=== PATIENT | male | born 1955 | race Caucasian/White ===

== ENCOUNTER → 2020-02-23 13:40 | Outpatient (BNVA) | payer MEDICARE, MEDICAID, SELFPAY | PROVIDERS: PCP Internal Medicine; Referring Provider Internal Medicine; Visit Provider Internal Medicine Gastroenterology | DX: K59.09 Other constipation (principal); I71.4 Abdominal aortic aneurysm, without rupture; I10 Essential (primary) hypertension; Z80.0 Family history of malignant neoplasm of digestive organs | CPT/HCPCS: 99212 ==

== ENCOUNTER 2020-03-01 10:08 | Emergency (ER) | payer MEDICARE, MEDICAID, SELFPAY ==
[2020-03-01 10:27] VITALS: BP 175/92; PULSE 75; RESP 17; TEMP 36.6; O2SAT 99; BMI 26.5
--- NOTE | 2020-03-01 10:40 | ED.URI ---
HPI - URI/Sore Throat General Chief Complaint: Upper Respiratory Symptoms Stated Complaint: fever,headache,sore throat,cough Time Seen by Provider: 03/01/20 10:22 Source: patient Mode of arrival: ambulatory Limitations: no limitations History of Present Illness HPI Narrative: cough and sore throat for 4 days MD elicited complaint: fever, cough and sore throat Onset (ago): day(s) Associated symptoms: fever and chills Related Data Home Medications Medication Instructions Recorded Confirmed allopurinol 300 mg tablet 150 mg PO DAILY 02/23/20 02/23/20 Previous Rx's Medication Instructions Recorded spironolactone 25 1 tab PO DAILY #90 tab 02/27/20 mg-hydrochlorothiazide 25 mg tablet Allergies Allergy/AdvReac Type Severity Reaction Status Date / Time No Known Allergies Allergy Unverified 01/15/20 19:29 [No Known Allergies*] Review of Systems Constitutional: Constitutional: Reports no additional constitutional complaints Eyes: Eyes: Reports no additional eye complaints ENT: Denies dizziness Cardiovascular: Cardiovascular: Reports no additional cardiovascular complaints Respiratory: Respiratory: Reports as per HPI Gastrointestinal: Gastrointestinal: Reports no additional gastrointestinal complaints Musculoskeletal: Musculoskeletal: Reports no additional musculoskeletal complaints Integumentary/Breasts: Skin/Breast: Denies rash Neurologic: Reports system reviewed and no additional complaints, except as documented, Denies dizziness and Denies Sensory deficit (Neuro) Psychiatric: Psychiatric: Denies anxiety PMFSH Past Medical History Medical History Abdominal aortic aneurysm Chronic constipation Family history of colon cancer Gout Hypertension Surgical History History of appendectomy Family History Family History Father No problems noted. Mother No problems noted. Social History Social History (Updated 02/23/20 @ 13:42 by Barb Mayers MA) Alcohol intake: current Alcohol intake frequency: 0-2 drinks per day Smoking Status: Current every day smoker Tobacco Type: Cigar Substance Use Type: Marijuana Advance Directives: No Advance Directives Information Provided: No Physical Exam Vital Signs: Vital Signs: Vital Signs Temp Pulse Resp BP Pulse Ox 03/01/20 10:27 98 F 75 17 175/92 H 99 Body Mass Index 26.5 Const: General: healthy appearing Nutritional Appearance: average body habitus Orientation/consciousness: oriented to person and patient oriented x3 Limitations: no limitations HENMT: Head: Yes normal to inspection Ears: external ears normal General nose exam: Normal external nose present Mouth: Normal oral and palatal mucosa present and oropharynx normal Throat: Yes posterior oropharynx normal Eyes: General: appearance normal, both eyes and all related structures Neck: Other: supple Neck: Yes normal visual inspection Chest: Chest palpation & inspection: normal inspection of the chest Resp: Auscultation: clear to auscultation bilaterally Cardio: Jugular venous distension: no JVD Rate: regular rate Rhythm: regular rhythm Heart sounds: S1 normal heart sound present and S2 normal heart sound present GI: Inspection: Yes normal to inspection Palpation (GI): Soft to palpation, nontender and No hepatosplenomegaly present Auscultation: normal bowel sounds : General: Yes no CVA tenderness Back/Spine/Pelvis: Back: no CVA tenderness Skin: General skin exam: no rashes or lesions noted Neuro: General: oriented to person and patient oriented x3 Cranial nerves: Yes CN's II-XII intact bilaterally Motor exam (neuro): 5/5 motor strength present throughout Sensory Exam: No Sensory deficit (Neuro) Extrem: General: Yes normal to inspection Psych: Appearance: grossly normal Course Course Course Narrative: resting comfortably MDM - URI/Sore Throat MDM Narrative Medical decision making narrative: patient with normal xray, no fever normal oxygen likely with Covid Imaging Data Chest x-ray: Radiologist's impression: no infiltrate Discharge Plan Discharge Clinical Impression: 2019 novel coronavirus disease (COVID-19) Patient Disposition: Home, Self-Care Prescriptions: No Action spironolacton-hydrochlorothiaz 25-25 mg tablet 1 tab PO DAILY Qty: 90 RF: 8 allopurinol 300 mg tablet 150 mg PO DAILY RF: 0 Referrals: Aldo Browning MD [Primary Care Provider] - 2 days
--- NOTE | 2020-03-01 11:06 | XR_ITS ---
EXAMINATION: XR CHEST CLINICAL INFORMATION: Cough and fever. COMPARISON: None TECHNIQUE: Frontal view of the chest was obtained. FINDINGS: The lungs are well-expanded with with no acute process seen. The heart size and pulmonary vascularity is normal. No gross bony abnormality seen. XR/XR chest 1V IMPRESSION: Unremarkable chest exam.
== END 2020-03-01 12:25 | disposition home or self-care (01) ==
PROVIDERS: Emergency Provider Emergency Medicine; PCP Internal Medicine
DX: Z03.818 Encounter for observation for suspected exposure to other biological agents ruled out (principal); I10 Essential (primary) hypertension; Z79.899 Other long term (current) drug therapy; F12.90 Cannabis use, unspecified, uncomplicated; F17.200 Nicotine dependence, unspecified, uncomplicated; Z71.6 Tobacco abuse counseling
CPT/HCPCS: 71045; 99282; 99283; U0003

== ENCOUNTER 2020-05-18 11:31 | Inpatient (IN) | payer MEDICARE, MEDICAID, SELFPAY ==
[2020-05-18] VITALS (12 sets, daily range): BP systolic 102–190; BP diastolic 65–113; PULSE 69–155; RESP 16–22; TEMP 36.5–36.8; O2SAT 95–98; BMI 27.3
--- NOTE | 2020-05-18 11:35 | ED_ITS ---
HPI - General Adult General Chief complaint: Altered Mental Status <Trang Ely NP - Last Filed: 05/18/20 11:52> Stated complaint: hbp <Trang Ely NP - Last Filed: 05/18/20 11:52> Time Seen by Provider: 05/18/20 11:34 <Trang Ely NP - Last Filed: 05/18/20 11:52> Source: patient <Obi Zapata MD - Last Filed: 05/18/20 16:12> Mode of arrival: ambulatory <Obi Zapata MD - Last Filed: 05/18/20 16:12> Limitations: no limitations <Obi Zapata MD - Last Filed: 05/18/20 16:12> History of Present Illness HPI narrative: Patient is altered mental status, weakness. Found laying on the floor in triage. Patient states that he has had a tactile temperature at home <Obi Zapata MD - Last Filed: 05/18/20 16:12> Onset (ago): day(s) <Obi Zapata MD - Last Filed: 05/18/20 16:12> Severity: moderate <Obi Zapata MD - Last Filed: 05/18/20 16:12> Associated symptoms: confusion and weakness <Obi Zapata MD - Last Filed: 05/18/20 16:12> Related Data Home medications: Home Medications Medication Instructions Recorded Confirmed allopurinol 300 mg tablet 150 mg PO DAILY 02/23/20 02/23/20 Previous Rx's Medication Instructions Recorded spironolactone 25 1 tab PO DAILY #90 tab 02/27/20 mg-hydrochlorothiazide 25 mg tablet <Trang Ely NP - Last Filed: 05/18/20 11:52> Allergies/adverse reactions: Allergies Allergy/AdvReac Type Severity Reaction Status Date / Time No Known Allergies Allergy Verified 03/22/20 14:49 [No Known Allergies*] <Trang Ely NP - Last Filed: 05/18/20 11:52> Review of Systems Constitutional: Constitutional: Reports no additional constitutional complaints <Obi Zapata MD - Last Filed: 05/18/20 16:12> Eyes: Eyes: Reports no additional eye complaints <Obi Zapata MD - Last Filed: 05/18/20 16:12> ENT: Denies dizziness <Obi Zapata MD - Last Filed: 05/18/20 16:12> Cardiovascular: Cardiovascular: Reports no additional cardiovascular complaints <Obi Zapata MD - Last Filed: 05/18/20 16:12> Respiratory: Respiratory: Reports as per HPI <Obi Zapata MD - Last Filed: 05/18/20 16:12> Gastrointestinal: Gastrointestinal: Reports no additional gastrointestinal complaints <Obi Zapata MD - Last Filed: 05/18/20 16:12> Musculoskeletal: Musculoskeletal: Reports no additional musculoskeletal complaints <Obi Zapata MD - Last Filed: 05/18/20 16:12> Integumentary/Breasts: Skin/Breast: Denies rash <Obi Zapata MD - Last Filed: 05/18/20 16:12> Neurologic: Reports system reviewed and no additional complaints, except as documented, Denies dizziness and Denies Sensory deficit (Neuro) <Obi Zapata MD - Last Filed: 05/18/20 16:12> Psychiatric: Psychiatric: Denies anxiety <Obi Zapata MD - Last Filed: 05/18/20 16:12> PMFSH Past Medical History Medical History: Medical History Abdominal aortic aneurysm Chronic constipation Family history of colon cancer Gout Hypertension <Trang Ely NP - Last Filed: 05/18/20 11:52> Surgical History: Surgical History History of appendectomy <Trang Ely NP - Last Filed: 05/18/20 11:52> Family History Family History: Family History Father No problems noted. Mother No problems noted. <Trang Ely NP - Last Filed: 05/18/20 11:52> Social History Social History: Social History Alcohol intake: current Alcohol intake frequency: 0-2 drinks per day Smoking Status: Current every day smoker Tobacco Type: Cigar Cigarettes Per Day: 20 Substance Use Type: Marijuana Advance Directives: No Advance Directives Information Provided: Yes <Trang Ely NP - Last Filed: 05/18/20 11:52> Physical Exam 2 Vital Signs: Vital Signs: Last Vital Signs Temp 97.7 F 05/18/20 12:48 Pulse 108 H 05/18/20 14:31 Resp 18 05/18/20 13:51 BP 190/113 H 05/18/20 14:31 Pulse Ox 96 05/18/20 13:51 Body Mass Index 27.3 <Trang Ely NP - Last Filed: 05/18/20 11:52> Vital Signs: Last Vital Signs Temp 97.7 F 05/18/20 12:48 Pulse 108 H 05/18/20 14:31 Resp 18 05/18/20 13:51 BP 190/113 H 05/18/20 14:31 Pulse Ox 96 05/18/20 13:51 Body Mass Index 27.3 <Obi Zapata MD - Last Filed: 05/18/20 16:12> Const: Other: Ill appearing, weak <Obi Zapata MD - Last Filed: 05/18/20 16:12> Nutritional Appearance: average body habitus <Obi Zapata MD - Last Filed: 05/18/20 16:12> Orientation/consciousness: oriented to person <Obi Zapata MD - Last Filed: 05/18/20 16:12> Limitations: altered mental status <Obi Zapata MD - Last Filed: 05/18/20 16:12> HENMT: Head: Yes normal to inspection <Obi Zapata MD - Last Filed: 05/18/20 16:12> Ears: external ears normal <Obi Zapata MD - Last Filed: 05/18/20 16:12> General nose exam: Normal external nose present <Obi Zapata MD - Last Filed: 05/18/20 16:12> Mouth: Normal oral and palatal mucosa present and oropharynx normal <Obi Zapata MD - Last Filed: 05/18/20 16:12> Throat: Yes posterior oropharynx normal <Obi Zapata MD - Last Filed: 05/18/20 16:12> Eyes: General: appearance normal, both eyes and all related structures <Obi Zapata MD - Last Filed: 05/18/20 16:12> Neck: Other: supple <Obi Zapata MD - Last Filed: 05/18/20 16:12> Neck: Yes normal visual inspection <Obi Zapata MD - Last Filed: 05/18/20 16:12> Chest: Chest palpation & inspection: normal inspection of the chest <bOi Zapata MD - Last Filed: 05/18/20 16:12> Resp: Auscultation: clear to auscultation bilaterally <Obi Zapata MD - Last Filed: 05/18/20 16:12> Cardio: Jugular venous distension: no JVD <Obi Zapata MD - Last Filed: 05/18/20 16:12> Rate: regular rate <Obi Zapata MD - Last Filed: 05/18/20 16:12> Rhythm: regular rhythm <Obi Zapata MD - Last Filed: 05/18/20 16:12> Heart sounds: S1 normal heart sound present and S2 normal heart sound present <Obi Zapata MD - Last Filed: 05/18/20 16:12> GI: Inspection: Yes normal to inspection <Obi Zapata MD - Last Filed: 05/18/20 16:12> Palpation (GI): Soft to palpation, nontender and No hepatosplenomegaly present <Obi Zapata MD - Last Filed: 05/18/20 16:12> Auscultation: normal bowel sounds <Obi Zapata MD - Last Filed: 05/18/20 16:12> : General: Yes no CVA tenderness <Obi Zapata MD - Last Filed: 05/18/20 16:12> Back/Spine/Pelvis: Back: no CVA tenderness <Obi Zapata MD - Last Filed: 05/18/20 16:12> Skin: General skin exam: no rashes or lesions noted <Obi Zapata MD - Last Filed: 05/18/20 16:12> Neuro: General: oriented to person <Obi Zapata MD - Last Filed: 05/18/20 16:12> Cranial nerves: Yes CN's II-XII intact bilaterally <Obi Zapata MD - Last Filed: 05/18/20 16:12> Motor exam (neuro): 5/5 motor strength present throughout <Obi Zapata MD - Last Filed: 05/18/20 16:12> Sensory Exam: No Sensory deficit (Neuro) <Obi Zapata MD - Last Filed: 05/18/20 16:12> Extrem: General: Yes normal to inspection <Obi Zapata MD - Last Filed: 05/18/20 16:12> Psych: Appearance: grossly normal <Obi Zapata MD - Last Filed: 05/18/20 16:12> NIH Stroke Scale Level of Consciousness: Alert <Obi Zapata MD - Last Filed: 05/18/20 16:12> Level of Consciousness Questions: Answers neither question correctly <Obi Zapata MD - Last Filed: 04/30 01/18 16:12> Level of Consciousness Commands: Performs both tasks correctly <Obi Zapata MD - Last Filed: 05/18/20 16:12> Best Gaze: Normal <Obi Zapata MD - Last Filed: 05/18/20 16:12> Visual: Partial hemianopia <Obi Zapata MD - Last Filed: 05/18/20 16:12> Facial Palsy: Normal <Obi Zapata MD - Last Filed: 05/18/20 16:12> Motor Arm (Right): No drift <Obi Zapata MD - Last Filed: 05/18/20 16:12> Motor Arm (Left): No drift <Obi Zapata MD - Last Filed: 05/18/20 16:12> Motor Leg (Right): No drift <Obi Zapata MD - Last Filed: 05/18/20 16:12> Motor Leg (Left): No drift <Obi Zapata MD - Last Filed: 05/18/20 16:12> Limb Ataxia: Absent <Obi Zapata MD - Last Filed: 05/18/20 16:12> Sensory: Normal <Obi Zapata MD - Last Filed: 05/18/20 16:12> Best Language: No aphasia <Obi Zapata MD - Last Filed: 05/18/20 16:12> Dysarthia: Normal <Obi Zapata MD - Last Filed: 05/18/20 16:12> Extinction and Inattention: Visual, tactile, auditory, spatial, or personal inattention <Obi nascimento MD - Last Filed: 05/18/20 16:12> Score: 4 <Obi Zapata MD - Last Filed: 05/18/20 16:12> Course Course Course Narrative: 1130-65 yo male here with JACOME, feeling lightheaded and confused with waking this morning. Hasn't felt well for a few days. very concerned as patient is confused today. Difficult to examine patient as he is very agitated, not cooperative. Charge nurse made aware of patient to bring patient to main ER for assessment. <Trang Ely NP - Last Filed: 05/18/20 11:52> Will obtain CT angio, stroke likely happened over past few days will start cardizem drip as well <Obi Zapata MD - Last Filed: 05/18/20 16:12> Reevaluation(s) Reevaluation #1: patient with posterior infarction with P2P3 clot, afib controlled on cardizem will admit <Obi Zapata MD - Last Filed: 05/18/20 16:12> Time: 16:08 <Obi Zapata MD - Last Filed: 05/18/20 16:12> Medical Decision Making MDM Narrative Medical decision making narrative: Atrial fibrillation with altered mental status, will head CT to rule out bleed, work up for infection <Obi Zapata MD - Last Filed: 05/18/20 16:12> Lab Data Result diagrams: : 05/18/20 12:46 05/18/20 12:46 <Trang Ely NP - Last Filed: 05/18/20 11:52> Labs: Lab Results 05/18/20 05/18/20 05/18/20 Range/Units 12:46 12:46 12:46 WBC 7.6 (4.8-10.8) X10*3/uL RBC 6.30 H (4.60-5.80) X10*6/uL Hgb 18.8 H (14.0-18.0) g/dl Hct 53.6 H (42-52) % MCV 85.1 (80-98) fL MCH 29.8 (27.0-33.0) pg MCHC 35.1 (31.0-36.0) g/dl RDW 13.3 (11.0-16.0) % Plt Count 220 (160-400) X10*3/uL MPV 10.8 (9.4-12.4) fL Immature Gran % (Auto) 0.1 (0.0-0.4) % Neut % (Auto) 53.6 (45-73) % Lymph % (Auto) 33.3 (20-40) % Duval % (Auto) 11.9 H (2-11) % Eos % (Auto) 0.4 (0-4) % Baso % (Auto) 0.7 (0-2) % Lymph # (Auto) 2.5 (1.2-4.9) X10*3/uL Duval # (Auto) 0.9 (0.1-1.2) X10*3/uL Eos # (Auto) 0.0 (0.0-0.4) X10*3/uL Baso # (Auto) 0.1 (0.0-0.2) X10*3/uL Abs Immat Gran (auto) 0.01 (0.00-0.03) X10*3/uL Absolute Neuts (auto) 4.1 (2.0-8.3) X10*3/uL Absolute Nucleated RBC 0.000 (0.0-0.012) X10*3/uL Nucleated RBC % (auto) 0.0 (0.0-0.2) /100WBC Sodium 138 (135-145) mmol/L Potassium 3.5 (3.3-5.1) mmol/l Chloride 97 (96-108) mmol/L Carbon Dioxide 24 (22-29) mmol/L Anion Gap 21 H (12-20) BUN 23 H (9-16) mg/dL Creatinine 0.91 (0.5-1.4) mg/dL Estim Creat Clear Calc 76.2 Estimated GFR > 60 Random Glucose 126 H (60-115) mg/dL Calcium 9.8 (8.4-10.2) mg/dL Total Bilirubin 0.9 (0.0-1.0) mg/dL Direct Bilirubin 0.5 (0.0-0.5) mg/dL AST 56 H (5-37) U/L ALT 81 H (0-40) U/L Alkaline Phosphatase 76 (39-117) U/L Troponin I High Sens 40.9 H (<3.5-35.0) ng/L Total Protein 8.3 H (6.5-8.0) g/dL Albumin 4.5 (3.5-5.0) g/dL Urine Color Urine Appearance Urine pH (5.0-8.0) Ur Specific Hutchins (1.005-1.025) Urine Protein (NEG-TRACE) MG/DL Urine Glucose (UA) (NEG) MG/DL Urine Ketones (NEG) MG/DL Urine Blood (NEG) Urine Nitrite (NEG) Ur Leukocyte Esterase (NEG) Urine RBC (0) /HPF Urine WBC (0-4) /HPF Ur Squamous Epith Cells /LPF Urine Bacteria /LPF Urine Mucus /LPF COVID-19 (MILLICENT) (Negative) COVID-19 Clin Com 05/18/20 05/18/20 Range/Units 12:52 14:34 WBC (4.8-10.8) X10*3/uL RBC (4.60-5.80) X10*6/uL Hgb (14.0-18.0) g/dl Hct (42-52) % MCV (80-98) fL MCH (27.0-33.0) pg MCHC (31.0-36.0) g/dl RDW (11.0-16.0) % Plt Count (160-400) X10*3/uL MPV (9.4-12.4) fL Immature Gran % (Auto) (0.0-0.4) % Neut % (Auto) (45-73) % Lymph % (Auto) (20-40) % Duval % (Auto) (2-11) % Eos % (Auto) (0-4) % Baso % (Auto) (0-2) % Lymph # (Auto) (1.2-4.9) X10*3/uL Duval # (Auto) (0.1-1.2) X10*3/uL Eos # (Auto) (0.0-0.4) X10*3/uL Baso # (Auto) (0.0-0.2) X10*3/uL Abs Immat Gran (auto) (0.00-0.03) X10*3/uL Absolute Neuts (auto) (2.0-8.3) X10*3/uL Absolute Nucleated RBC (0.0-0.012) X10*3/uL Nucleated RBC % (auto) (0.0-0.2) /100WBC Sodium (135-145) mmol/L Potassium (3.3-5.1) mmol/l Chloride (96-108) mmol/L Carbon Dioxide (22-29) mmol/L Anion Gap (12-20) BUN (9-16) mg/dL Creatinine (0.5-1.4) mg/dL Estim Creat Clear Calc Estimated GFR Random Glucose (60-115) mg/dL Calcium (8.4-10.2) mg/dL Total Bilirubin (0.0-1.0) mg/dL Direct Bilirubin (0.0-0.5) mg/dL AST (5-37) U/L ALT (0-40) U/L Alkaline Phosphatase (39-117) U/L Troponin I High Sens (<3.5-35.0) ng/L Total Protein (6.5-8.0) g/dL Albumin (3.5-5.0) g/dL Urine Color YELLOW Urine Appearance CLEAR Urine pH 6.5 (5.0-8.0) Ur Specific Hutchins 1.010 (1.005-1.025) Urine Protein 1+ H (NEG-TRACE) MG/DL Urine Glucose (UA) NEG (NEG) MG/DL Urine Ketones NEG (NEG) MG/DL Urine Blood NEG (NEG) Urine Nitrite NEG (NEG) Ur Leukocyte Esterase NEG (NEG) Urine RBC 1-4 (0) /HPF Urine WBC 0-2 (0-4) /HPF Ur Squamous Epith Cells TRACE /LPF Urine Bacteria NONE /LPF Urine Mucus TRACE /LPF COVID-19 (MILLICENT) Negative (Negative) COVID-19 Clin Com See Note <Trang Ely NP - Last Filed: 05/18/20 11:52> Lab Results 05/18/20 05/18/20 05/18/20 Range/Units 12:46 12:46 12:46 WBC 7.6 (4.8-10.8) X10*3/uL RBC 6.30 H (4.60-5.80) X10*6/uL Hgb 18.8 H (14.0-18.0) g/dl Hct 53.6 H (42-52) % MCV 85.1 (80-98) fL MCH 29.8 (27.0-33.0) pg MCHC 35.1 (31.0-36.0) g/dl RDW 13.3 (11.0-16.0) % Plt Count 220 (160-400) X10*3/uL MPV 10.8 (9.4-12.4) fL Immature Gran % (Auto) 0.1 (0.0-0.4) % Neut % (Auto) 53.6 (45-73) % Lymph % (Auto) 33.3 (20-40) % Duval % (Auto) 11.9 H (2-11) % Eos % (Auto) 0.4 (0-4) % Baso % (Auto) 0.7 (0-2) % Lymph # (Auto) 2.5 (1.2-4.9) X10*3/uL Duval # (Auto) 0.9 (0.1-1.2) X10*3/uL Eos # (Auto) 0.0 (0.0-0.4) X10*3/uL Baso # (Auto) 0.1 (0.0-0.2) X10*3/uL Abs Immat Gran (auto) 0.01 (0.00-0.03) X10*3/uL Absolute Neuts (auto) 4.1 (2.0-8.3) X10*3/uL Absolute Nucleated RBC 0.000 (0.0-0.012) X10*3/uL Nucleated RBC % (auto) 0.0 (0.0-0.2) /100WBC Sodium 138 (135-145) mmol/L Potassium 3.5 (3.3-5.1) mmol/l Chloride 97 (96-108) mmol/L Carbon Dioxide 24 (22-29) mmol/L Anion Gap 21 H (12-20) BUN 23 H (9-16) mg/dL Creatinine 0.91 (0.5-1.4) mg/dL Estim Creat Clear Calc 76.2 Estimated GFR > 60 Random Glucose 126 H (60-115) mg/dL Calcium 9.8 (8.4-10.2) mg/dL Total Bilirubin 0.9 (0.0-1.0) mg/dL Direct Bilirubin 0.5 (0.0-0.5) mg/dL AST 56 H (5-37) U/L ALT 81 H (0-40) U/L Alkaline Phosphatase 76 (39-117) U/L Troponin I High Sens 40.9 H (<3.5-35.0) ng/L Total Protein 8.3 H (6.5-8.0) g/dL Albumin 4.5 (3.5-5.0) g/dL Urine Color Urine Appearance Urine pH (5.0-8.0) Ur Specific Hutchins (1.005-1.025) Urine Protein (NEG-TRACE) MG/DL Urine Glucose (UA) (NEG) MG/DL Urine Ketones (NEG) MG/DL Urine Blood (NEG) Urine Nitrite (NEG) Ur Leukocyte Esterase (NEG) Urine RBC (0) /HPF Urine WBC (0-4) /HPF Ur Squamous Epith Cells /LPF Urine Bacteria /LPF Urine Mucus /LPF COVID-19 (MILLICENT) (Negative) COVID-19 Clin Com 05/18/20 05/18/20 Range/Units 12:52 14:34 WBC (4.8-10.8) X10*3/uL RBC (4.60-5.80) X10*6/uL Hgb (14.0-18.0) g/dl Hct (42-52) % MCV (80-98) fL MCH (27.0-33.0) pg MCHC (31.0-36.0) g/dl RDW (11.0-16.0) % Plt Count (160-400) X10*3/uL MPV (9.4-12.4) fL Immature Gran % (Auto) (0.0-0.4) % Neut % (Auto) (45-73) % Lymph % (Auto) (20-40) % Duval % (Auto) (2-11) % Eos % (Auto) (0-4) % Baso % (Auto) (0-2) % Lymph # (Auto) (1.2-4.9) X10*3/uL Duval # (Auto) (0.1-1.2) X10*3/uL Eos # (Auto) (0.0-0.4) X10*3/uL Baso # (Auto) (0.0-0.2) X10*3/uL Abs Immat Gran (auto) (0.00-0.03) X10*3/uL Absolute Neuts (auto) (2.0-8.3) X10*3/uL Absolute Nucleated RBC (0.0-0.012) X10*3/uL Nucleated RBC % (auto) (0.0-0.2) /100WBC Sodium (135-145) mmol/L Potassium (3.3-5.1) mmol/l Chloride (96-108) mmol/L Carbon Dioxide (22-29) mmol/L Anion Gap (12-20) BUN (9-16) mg/dL Creatinine (0.5-1.4) mg/dL Estim Creat Clear Calc Estimated GFR Random Glucose (60-115) mg/dL Calcium (8.4-10.2) mg/dL Total Bilirubin (0.0-1.0) mg/dL Direct Bilirubin (0.0-0.5) mg/dL AST (5-37) U/L ALT (0-40) U/L Alkaline Phosphatase (39-117) U/L Troponin I High Sens (<3.5-35.0) ng/L Total Protein (6.5-8.0) g/dL Albumin (3.5-5.0) g/dL Urine Color YELLOW Urine Appearance CLEAR Urine pH 6.5 (5.0-8.0) Ur Specific Hutchins 1.010 (1.005-1.025) Urine Protein 1+ H (NEG-TRACE) MG/DL Urine Glucose (UA) NEG (NEG) MG/DL Urine Ketones NEG (NEG) MG/DL Urine Blood NEG (NEG) Urine Nitrite NEG (NEG) Ur Leukocyte Esterase NEG (NEG) Urine RBC 1-4 (0) /HPF Urine WBC 0-2 (0-4) /HPF Ur Squamous Epith Cells TRACE /LPF Urine Bacteria NONE /LPF Urine Mucus TRACE /LPF COVID-19 (MILLICENT) Negative (Negative) COVID-19 Clin Com See Note <Obi Zapata MD - Last Filed: 05/18/20 16:12> Imaging Data Chest x-ray: Radiologist's impression: no infiltrate <Obi Zapata MD - Last Filed: 05/18/20 16:12> brain CTA: Radiologist's impression: P2/P3 distal obstruction involving area of infarction <Obi Zapata MD - Last Filed: 05/18/20 16:12> Critical Care Time Critical Care Time Attestation: I spent 40 minutes of critical care, with interventions, assessments, speaking to patient, consultants, and family. <Obi Zapata MD - Last Filed: 05/18/20 16:12> Discharge Plan Discharge Clinical Impression: Stroke Qualifiers: CVA mechanism: embolism Precerebral and cerebral artery: posterior cerebral artery Laterality of affected vessel: unspecified Qualified Code(s): I63.439 - Cerebral infarction due to embolism of unspecified posterior cerebral artery Atrial fibrillation Qualifiers: Atrial fibrillation type: paroxysmal Qualified Code(s): I48.0 - Paroxysmal atrial fibrillation <Trang Ely NP - Last Filed: 05/18/20 11:52> Patient Disposition: Admitted As Inpatient <Trang Ely NP - Last Filed: 05/18/20 11:52>
--- NOTE | 2020-05-18 12:43 | ECG_ITS ---
Test Reason : AMS Blood Pressure : / mmHG Vent. Rate : 142 BPM Atrial Rate : 142 BPM P-R Int : 100 ms QRS Dur : 098 ms QT Int : 324 ms P-R-T Axes : 042 -02 037 degrees QTc Int : 498 ms Sinus tachycardia with short [place] with Premature supraventricular complexes Left ventricular hypertrophy with repolarization abnormality Abnormal ECG When compared with ECG of 02-APR-2019 10:20, Premature supraventricular complexes are now Present Vent. rate has increased BY [address] now depressed in Inferior leads ST now depressed in Anterior leads Referred By: Obi Zapata Electronically Signed By:ANDERSON VILLA
--- NOTE | 2020-05-18 12:44 | XR_ITS ---
EXAMINATION: XR CHEST CLINICAL INFORMATION: Weakness COMPARISON: Chest radiographs 03/01/2020, 09/03/2017 TECHNIQUE: Portable upright AP view of the chest was obtained. FINDINGS: The lungs are mostly clear with no airspace consolidation or definite groundglass opacity. The vascularity is normal. The heart is within normal size. The costophrenic sulci are clear. The hilar and mediastinal contours and bony structures are unremarkable. XR/XR chest 1V IMPRESSION: Unremarkable examination.
--- NOTE | 2020-05-18 12:45 | CT_ITS ---
EXAMINATION: CT HEAD WITHOUT CONTRAST CLINICAL INFORMATION: Altered mental status change COMPARISON: Previous head CT August 2017 TECHNIQUE: Contiguous axial imaging was performed from the skull base to vertex without intravenous administration of contrast. This CT examination was performed using dose optimization techniques as appropriate, variously including the following: *Automated exposure control *Adjustment of mA and/or kV according to patient size (this includes techniques or standardized protocols for targeted exams where dose is matched to indication/reason for exam; i.e. extremities or head) *Use of iterative reconstruction technique DLP: 823 mGy-cm FINDINGS: There is no evidence of an extra-axial collection. There is no evidence of intra-axial or extra-axial hemorrhage. The ventricles and extra-axial CSF spaces are appropriate. There is a large left occipital infarct that appears subacute to old. This is new in the interval from 2018 exam. This measures approximately 2 x 7 m. There are old bilateral basal ganglia lacunar infarcts that appear unchanged. There is nonspecific periventricular white matter disease. There is a nodule in the left face/cheek is deep to the skin. This measures 1 x 1.4 cm and is incompletely visualized. This is not included in the iixec-ox-ebna on prior exam cannot be compared. Review at bone windows is unremarkable. No skull fracture is seen. Visualized paranasal masses, mastoid air cells and middle ears are clear. CT/CT head/brain wo con IMPRESSION: Large left occipital infarct that appears subacute to old. This is new in the interval from 2018 exam. Generalized atrophy, nonspecific periventricular white matter disease and old bilateral basal ganglia lacunar infarct similar to previous exam. Partially visualized 1 x 1.4 cm soft tissue nodule in the left cheek just deep to the skin.
[2020-05-18] MEDS: dilTIAZem HCL 50 MG/10 ML VIAL 10 MG IVPUSH ×2 (12:49→13:47)
[2020-05-18] MEDS: 0.9 % Sodium Chloride 1,000 ML 999 ML IVCONT ×2 (12:49→13:46)
[2020-05-18 12:55] LABS: MANUAL DIFF FLAG NO
[2020-05-18 12:57] LABS: Basophils Absolute Auto 0.1 X10*3/uL (0.0-0.2); Basophils Percent Auto 0.7 % (0-2); Eosinophils Percent Auto 0.4 % (0-4); Hematocrit 53.6 % (42-52); Hemoglobin 18.8 g/dl (14.0-18.0); Imm Gran Abs Auto 0.01 X10*3/uL (0.00-0.03); Imm Gran Pct Auto 0.1 % (0.0-0.4); Lymphocytes Absolute Auto 2.5 X10*3/uL (1.2-4.9); Lymphocytes Percent Auto 33.3 % (20-40); Mean Corpuscular HGB Conc 35.1 g/dl (31.0-36.0); Mean Corpuscular Hemoglobin 29.8 pg (27.0-33.0); Mean Corpuscular Volume 85.1 fL (80-98); Mean Platelet Volume 10.8 fL (9.4-12.4); Monocytes Absolute Auto 0.9 X10*3/uL (0.1-1.2); Monocytes Percent Auto 11.9 % (2-11); Neutrophils Absolute Auto 4.1 X10*3/uL (2.0-8.3); Neutrophils Percent Auto 53.6 % (45-73); Platelet Count 220 X10*3/uL (160-400); Red Cell Distribution Width 13.3 % (11.0-16.0); White Blood Count 7.6 X10*3/uL (4.8-10.8)
[2020-05-18 13:12] LABS: COVID-19 Test Negative (Negative)
[2020-05-18 13:25] LABS: Alanine Aminotransferase 81 U/L (0-40); Albumin Level 4.5 g/dL (3.5-5.0); Alkaline Phosphatase 76 U/L (39-117); Anion Gap 21 (12-20); Aspartate Amino Transferase 56 U/L (5-37); Bilirubin Direct 0.5 mg/dL (0.0-0.5); Bilirubin Total 0.9 mg/dL (0.0-1.0); Blood Urea Nitrogen 23 mg/dL (9-16); Calcium 9.8 mg/dL (8.4-10.2); Carbon Dioxide 24 mmol/L (22-29); Chloride 97 mmol/L (96-108); Creatinine Clr Calc Pharmacy 76.2; Estimated Glomerular Filt Rate > 60; Glucose Random 126 mg/dL (60-115); Potassium 3.5 mmol/l (3.3-5.1); Sodium 138 mmol/L (135-145); Total Protein 8.3 g/dL (6.5-8.0)
[2020-05-18 13:32] LABS: Troponin-I High Sensitivity 40.9 ng/L (<3.5-35.0)
--- NOTE | 2020-05-18 13:35 | ECG_ITS ---
Test Reason : CP Blood Pressure : / mmHG Vent. Rate : 089 BPM Atrial Rate : 089 BPM P-R Int : 170 ms QRS Dur : 116 ms QT Int : 394 ms P-R-T Axes : 006 036 244 degrees QTc Int : 479 ms Normal sinus rhythm Premature ventricular complexes Left ventricular hypertrophy with QRS widening and repolarization abnormality Abnormal ECG When compared with ECG of 18-MAY-2020 12:36, Rate has decreased Referred By: Obi Zapata Electronically Signed By:ANDERSON VILLA
--- NOTE | 2020-05-18 13:35 | CT_ITS ---
EXAMINATION: CT ANGIOGRAM HEAD CT ANGIOGRAM NECK CLINICAL INFORMATION: Subacute occipital stroke. COMPARISON: CT head from 05/18/2020. TECHNIQUE: Initial noncontrast greenhouse staff imaging of the head and neck was performed. Comparison is made with noncontrast head CT from earlier today. Test bolus sequences followed by intravenous administration 70 mL of Omnipaque 350. Helical imaging was performed in the axial plane from the aortic arch to the skull vertex. Delayed postcontrast imaging of the head was also performed. The data was processed at the computer engineering technologist's workstation for generation of MIP sequences. Angled MIPs and volume rendered reformatted images were also generated at an offline 3D workstation. Stenoses are assessed in accordance with NASCET criteria unless otherwise indicated. DLP: 1733 mGy-cm This CT examination was performed using dose optimization techniques as appropriate, variously including the following: *Automated exposure control. *Adjustment of mA and/or kV according to patient size (this includes techniques or standardized protocols for targeted exams where dose is matched to indication/reason for exam; i.e. extremities or head). *Use of iterative reconstruction technique. FINDINGS: CT Head: Redemonstrated hypoattenuation within the parasagittal left occipital lobe and posterior left mesial temporal lobe. No evidence of hemorrhagic conversion. Associated effacement of the regional sulci. Scattered hypoattenuation in the periventricular and deep white matter are consistent with mild to moderate microangiopathy. Lacunar infarct within the bilateral lentiform nuclei. Proportional prominence of the ventricles and sulcal spaces. No evidence for obstructive hydrocephalus. No additional abnormal mass effect. No midline shift. No extra-axial fluid collections. No pathologic intra-axial enhancement. No acute soft tissue or osseous abnormalities. Mild mucosal thickening of the paranasal sinuses. The mastoid air cells and middle ear cavities remain well aerated. The patient is edentulous. Patchy airspace opacities within the CT Neck: The thyroid gland and remaining cervical soft tissues are within normal limits. Mild reversal the normal cervical lordosis centered on C5. Moderate degenerative loss of disc height at C5-C6. CT Upper Chest: Mild to moderate underlying centrilobular and paraseptal emphysema. Patchy airspace opacities within the periphery of the lateral and dependent upper lungs. No demonstrated abnormalities of the visualized upper mediastinum. Neck CTA: Aortic Arch: Normal contour and caliber with moderate irregular calcific atherosclerotic disease. Classic 3 vessel branching pattern of the aortic arch. Great Vessel Origins: No significant stenosis of the branch origins. Right Common Carotid Artery: Normal opacification without focal stenosis or occlusion. Cervical Right Internal Carotid Artery: Calcific atherosclerotic disease of the carotid bulb and proximal internal carotid artery causing less than 50% stenosis. Left Common Carotid Artery: Normal opacification without focal stenosis or occlusion. Cervical Left Internal Carotid Artery: Calcific atherosclerotic disease of the carotid bulb and proximal internal carotid artery causing less than 50% stenosis. Cervical Right Vertebral Artery: Co-dominant. Scattered calcific atherosclerotic disease without focal stenosis or occlusion. Cervical Left Vertebral Artery: Co-dominant. Scattered calcific atherosclerotic disease without focal stenosis or occlusion. Brain CTA: Intracranial Internal Carotid Arteries: Moderate calcific atherosclerotic disease of the intracranial internal carotid arteries without occlusion or flow-limiting stenosis. Otherwise, normal contrast opacification of the petrous, cavernous, paraophthalmic, and supraclinoid segments of the internal carotid arteries without focal stenosis. Right Anterior Cerebral Artery: Normal A1 segment. Normal opacification of the distal segments of the SKY. Left Anterior Cerebral Artery: Normal A1 segment. Normal opacification of the distal segments of the SKY. Anterior Communicating Artery: Normal. Right Middle Cerebral Artery: Normal opacification of the M1 segment of the MCA without focal stenosis or occlusion. Normal arborization of the distal segments. Left Middle Cerebral Artery: Normal opacification of the M1 segment of the MCA without focal stenosis or occlusion. Normal arborization of the distal segments. Right Vertebral Artery: Normal opacification of the V4 segment. Normal opacification of the proximal segments of the posterior inferior cerebellar artery. Left Vertebral Artery: Normal opacification of the V4 segment. Normal opacification of the proximal segments of the posterior inferior cerebellar artery. Basilar Artery: Normal opacification without focal stenosis or occlusion. Normal appearance of the proximal superior cerebellar arteries. Right Posterior Cerebral Artery: Normal P1 segment. Normal opacification of the distal segments of the WIDE AREA NETWORK ADMINISTRATOR. Left Posterior Cerebral Artery: Normal P1 and P2 segments. There is occlusion of the P2-P3 junction (image [id number]). Normal opacification of the distal segments of the WIDE AREA NETWORK ADMINISTRATOR. Normal opacification of the superior sagittal, straight, transverse, and sigmoid sinuses. CT/CT angio head neck IMPRESSION: 1. Acute to subacute infarct of the left WIDE AREA NETWORK ADMINISTRATOR territory involving the parasagittal left occipital lobe and posterior mesial temporal lobe. No evidence of hemorrhagic conversion. 2. Occlusion of the P2-P3 junction of the left WIDE AREA NETWORK ADMINISTRATOR. 3. CTA of the head and neck without additional proximal occlusion or flow-limiting stenosis. 4. Mild to moderate underlying microangiopathy and generalized cerebral volume loss. Chronic lacunar infarcts of the bilateral lentiform nuclei. 5. Patchy airspace disease in the lateral and dependent upper lungs suggestive of an infectious/inflammatory process.
[2020-05-18] MEDS: dilTIAZem HCL 125 MG in 0.9 % Sodium Chloride 100 ML 10 MG IVCONT (14:31)
[2020-05-18] MEDS: iohexoL 350 MG/ML 100 ML INFUS..BTL 70 ML IV (14:34)
[2020-05-18 14:51] LABS: Glucose Urine UA NEG (NEG); Leukocyte Esterase Urine NEG (NEG); Nitrite Urine NEG (NEG); PH 6.5 (5.0-8.0); Urine Blood NEG (NEG); Urine Ketones NEG (NEG); Urine Protein 1+ MG/DL (NEG-TRACE)
[2020-05-18 14:56] LABS: Appearance Urine CLEAR; Color Urine YELLOW
[2020-05-18 15:09] LABS: Mucus Urine TRACE /LPF; Squamous Epithelial Cell Urine TRACE /LPF; WBC Urine 0-2 /HPF (0-4)
--- NOTE | 2020-05-18 15:25 | MHC.STROKE ---
Addendum entered by Letha Johns RN 05/21/20 15:22: Dr. 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 This type of infarcts are typically embolic. I see that the diagnosis of A fibb is refuted and his EF is not that low. If that is the case, the recommended course of treatment is a combination of baby aspirin and 75mg plavix for a month, and then continuing with one of the antiplatelet agent. I recommend out pt cardiac monitoring to r/o a fibb. Addendum entered by Letha Johns RN 05/20/20 16:06: I MET WITH THE PATIENT TODAY AFTER HIS MRI, HE AGREED TO FINALLY HAVE THE EXAM THIS MORNING. I PROVIDED HIM WITH A SCREENSHOT OF THE MRI IMAGE OF THE LEFT HOME APPLIANCE TECHNICIAN STROKE. I DESCRIBED THE LOCATION AND THE CORRELATING SYMPTOMS. HE IS DISCOURAGE BUT VERBALIZED THAT HE UNDERSTOOD. I ALSO REINFORCE THAT WE ARE RECOMMENDING HE DOES NOT DRIVE A CAR UNTIL HE IS CLEARED BY HIS PCP OR NEUROLOGY. WE TALKED ABOUT THE SIZE OF THE STROKE, WHAT HE CAN DO FOR STROKE PREVENTION AND POSSIBLY STARTING BLOOD THINNERS I A WEEK OR SO. HE WILL NEED TO MONITOR HIS BP AT HOME, TAKE ALL HIS MEDICATIONS PRESCRIBED TO PREVENT FUTURE STROKES. I ANSWERED ALL OF HIS QUESTIONS. I DISCUSSED THE CASE WITH DR. AGRAWAL, DR. ANGELES AND CASE MANAGEMENT. I WILL CONTINUE TO FOLLOW. Addendum entered by Letha Johns RN 05/19/20 11:32: ROUNDED WITH DR ANGELES THIS AM. PATIENT IS EXTREMELY CLAUSTROPHOBIC AND IS REFUSING THE MRI AT THIS TIME. THE MRI WOULD STILL BE HELPFUL ACCORDING TO DR ANGELES. UNCERTAIN TO THE AMOUNT OF ETOH THIS PATIENT CONSUMES, HE COULD BENEFIT FROM THE CARE TEAM CONSULT. HE WILL REQUIRE SMOKING CESSATION EDUCATION AND ENCOURAGEMENT AND SUPPORT. HE HAS NOT BEEN COMPLIANT WITH HIS MEDICATIONS IN THE PAST, HE WILL REQUIRE EDUCATION ON ANTICOAGULATION, DR ANGELES MENTIONED STARTING IN 1 WEEK. HE WILL NOT BE ABLE TO DRIVE UNTIL HE IS MEDICALLY CLEARED BY HIS PCP OR NEUROLOGY. I WILL COMMUNICATE THIS INFORMATION TO THE CORRECTION WORKER. Addendum entered by Letha Johns RN 05/18/20 15:57: Last known well 1/16/21 2200, discovery of symptoms 05/16/20 at 0700. Went to bed Sunday night at 2200 without symptoms, woke around 0700 and hasn't felt himself since, vague symptoms off balance, vision was off, couldn't remeber things. Addendum entered by Letha Johns RN 05/18/20 15:36: ON 11/05/19 HE HAD AN ABDOMINAL US (REFER TO THAT REPORT), HE MAY NEED A VASCULAR CONSULT. Original Note: 05/18/20 1131 WALK IN TO ED, C/O MENTAL STATUS CHANGES FOR A FEW DAYS. CT HEAD + ACUTE/SUBACUTE LEFT OCCIPITAL INFARCT ONSET OF SYMPTOMS 05/15-05/16. HE WENT TO BED SUNDAY NIGHT AND WAKE SUNDAY AT 0700 HE DIDN'T FEEL WELL AND STAYED ON THE COUCH SINCE THAT TIME. NIHSS = 6, LOC COULD NOT ANSWER HIS DATE OF OR THE MONTH, RIGHT COMPLETE HEMIANOPSIA, RIGHT LEG ATAXIA, AND NEGLECT ON THE RIGHT. CTA H/N ALSO DONE RESULTS PENDING. HE PASSED SWALLOW SCREEN PRIOR TO ANY PO. HE IS IN AND OUT OF AFIB. CURRENT BP 175/96. STROKE EDUCATION PROVIDED ALONG WITH PLAN OF CARE EXPLAINED TO THE PATIENT AND SO. RISK FACTORS INCLUDE HTN, SMOKER, PRIOR CVA'S, DAILY ETOH, AAA, HLD (LAST LDL 122 ON 05/14/19). HE TOOK HIS ASPIRIN 81MG TODAY. HE WILL NEED A CARDIOLOGY AND NEUROLOGY CONSULT, ECHO, MRI w/o CONTRAST, PT/OT, WE DID DISCUSS PHOTO PRINTER ANTICOAGULATION. CTA H/N, CONSULTS AND MRI PENDING.
[2020-05-18] MEDS: Aspirin 81 MG TAB.CHEW 324 MG PO (16:53)
[2020-05-18] MEDS: Acetaminophen 325 MG TABLET 975 MG PO (18:07)
--- NOTE | 2020-05-18 18:15 | PM.EVENT ---
Event Note Date of Service: 05/18/20 Event Note: Patient seen examined with APC 65-year-old gentleman with past medical history significant for abdominal aortic aneurysm, hypertension, gout presented to [facility] since not feeling well since Sunday morning 05/16 and has been lying on a couch and walking to bathroom with unsteady gait since symptoms were ongoing decided to bring him to the hospital in the emergency patient noted to be disoriented unable to name the place or recall his date of are CT head showed a large left occipital stroke EKG revealed atrial fibrillation with RVR patient treated with Cardizem currently in normal sinus rhythm Patient denies any weakness numbness upper or lower extremity On examination patient is awake speech is clear Neck is supple Heart regular rate rhythm Abdomen soft Extremities no edema Neuro normal strength both upper and lower extremity, right hemianopsia and neglect Subacute left occipital infarction with history of prior lacunar infarcts, history of hyperlipidemia, hypertension and tobacco use Atrial fibrillation with RVR new onset Tobacco use disorder History of abdominal aortic aneurysm Patient will be admitted to intermediate care unit will have close neuro checks, will obtain an MRI study, echocardiogram avoid hypotension will DC IV Cardizem and place patient on by mouth Cardizem drip patient took 1 dose of aspirin due to large size of infarction will hold off on anticoagulation at the present time Will obtain neuro consult, Cardiology consult PT OT Will hold spironolactone/hydrochlorothiazide Continue allopurinol Smoking cessation advice, continue CIWA with history of daily alcohol use
--- NOTE | 2020-05-18 18:29 | PC.NURSE ---
PER HOSPITALIST RAJ STOP IV DILTIAZEM ATT.
--- NOTE | 2020-05-18 19:40 | PM.IMHP ---
History of Present Illness Date of Service: 05/18/20 Chief Complaint: Lethargy 65-year-old man presenting to the ER with stroke symptoms. Apparently patient went to bed on Sunday night in his usual state of health and woke up on Sunday feeling unwell with right-sided visual changes, memory changes, headache and feeling off balance. According to the patient's he had been under couch for 2 days and seemed quite different from his usual. He denied chest pain, shortness of breath, nausea, vomiting, diarrhea, extremity weakness. He does have a history of prior CVAs, hypertension, smoking and alcohol use therefore he is quite high risk. It also appears that he has some vascular issues. He had an abdominal aortic ultrasound and October of 2019 which found diffuse enlargement of the abdominal aorta with diameter of 4.7 x 4.5 distally with peripheral eccentric thrombus. Head and neck CTA/CT showed acute to subacute Large left occipital infarction with occlusion of the P2 to P3 junction of the left TRAFFIC CONTROL SPECIALIST. No other additional occlusions found. His hemoglobin was noted to be elevated 18.8, hematocrit 53.6. His BNP is elevated 464, AST 56, ALT 81, troponin 40.9. His EKG initially showed atrial fibrillation with rapid ventricular response with heart rate in 150s. This did improve after a Cardizem drip and the patient did convert to sinus rhythm. His blood pressure was also notably elevated at 1 90/113 however again this also improved. In the ER he also received a full dose of aspirin, Tylenol and 1 L of IV fluid. He will be admitted for further management and treatment of acute stroke. Review of Systems Review of Systems: Denies any recent fever chills or decrease in appetite respiratory See above cardiovascular see above gastrointestinal denies any dysphagia abdominal pain nausea vomiting or diarrhea genitourinary denies any dysuria frequency or hematuria musculoskeletal denies any joint pain or swelling neuropsych Reported some visual field loss to right eye, dizziness and headache all other systems reviewed are negative ENT: Denies dizziness Neurologic: Reports system reviewed and no additional complaints, except as documented, Denies dizziness and Denies Sensory deficit (Neuro) [facility] Medical History (Updated 05/18/20 @ 19:41 by Meg Jackson NP) Abdominal aortic aneurysm Chronic constipation CVA (cerebral vascular accident) Gout Hypertension Family History (Updated 05/18/20 @ 19:42 by Meg Manuel, FAMILY AND DIVORCE LEGAL ASSISTANT) Father Colon cancer Surgical History History of appendectomy Social History (Updated 05/18/20 @ 19:43 by Meg Jackson NP) Alcohol intake: current Alcohol intake frequency: 0-2 drinks per day Smoking Status: Current every day smoker Tobacco Type: Cigar Packs Per Day: 1 Cigarettes Per Day: 20 Substance Use Type: Marijuana Advance Directives: No Advance Directives Information Provided: Yes Meds Allergies Allergy/AdvReac Type Severity Reaction Status Date / Time No Known Allergies Allergy Verified 03/22/20 14:49 [No Known Allergies*] Home Medications Medication Instructions Recorded Confirmed Type allopurinol 300 mg tablet 150 mg PO DAILY 02/23/20 05/18/20 History Physical Exam Vital Signs and Narrative: Vital Signs: Last Vital Signs Temp 98.2 F 05/18/20 18:00 Pulse 69 05/18/20 18:00 Resp 16 05/18/20 18:00 BP 148/73 H 05/18/20 18:00 Pulse Ox 96 05/18/20 18:00 Body Mass Index 27.3 Appearing in no acute distress head is normocephalic atraumatic eyes pupils Right eye peripheral vision loss mouth throat mucous membranes are intact and moist neck is supple no lymphadenopathy, no JVD noted lung sounds are clear to auscultation heart regular rate rhythm, clear S1, S2 positive bowel sounds, abdomen is soft, nontender neuro patient is alert x3. Upper and lower extremies no deficits Neuro: Sensory Exam: No Sensory deficit (Neuro) Results Labs CBC and Chem 7: 05/18/20 12:46 05/18/20 12:46 Labs: Laboratory Results - last 24 hr 05/18/20 05/18/20 05/18/20 12:46 12:46 12:46 MCV 85.1 MCH 29.8 MCHC 35.1 RDW 13.3 Plt Count 220 MPV 10.8 Immature Gran % (Auto) 0.1 Neut % (Auto) 53.6 Lymph % (Auto) 33.3 [place] % (Auto) 11.9 H Eos % (Auto) 0.4 Baso % (Auto) 0.7 Lymph # (Auto) 2.5 [place] # (Auto) 0.9 Eos # (Auto) 0.0 Baso # (Auto) 0.1 Abs Immat Gran (auto) 0.01 Absolute Neuts (auto) 4.1 Absolute Nucleated RBC 0.000 Nucleated RBC % (auto) 0.0 Anion Gap 21 H Estim Creat Clear Calc 76.2 Estimated GFR > 60 Random Glucose 126 H Calcium 9.8 Total Bilirubin 0.9 Direct Bilirubin 0.5 AST 56 H ALT 81 H Alkaline Phosphatase 76 Troponin I High Sens 40.9 H Total Protein 8.3 H Albumin 4.5 Urine Color Urine Appearance Urine pH Ur Specific [place] Urine Protein Urine Glucose (UA) Urine Ketones Urine Blood Urine Nitrite Ur Leukocyte Esterase Urine RBC Urine WBC Ur Squamous Epith Cells Urine Bacteria Urine Mucus COVID-19 (MILLICENT) COVID-19 Clin Com 05/18/20 05/18/20 12:52 14:34 MCV MCH MCHC RDW Plt Count MPV Immature Gran % (Auto) Neut % (Auto) Lymph % (Auto) [place] % (Auto) Eos % (Auto) Baso % (Auto) Lymph # (Auto) [place] # (Auto) Eos # (Auto) Baso # (Auto) Abs Immat Gran (auto) Absolute Neuts (auto) Absolute Nucleated RBC Nucleated RBC % (auto) Anion Gap Estim Creat Clear Calc Estimated GFR Random Glucose Calcium Total Bilirubin Direct Bilirubin AST ALT Alkaline Phosphatase Troponin I High Sens Total Protein Albumin Urine Color YELLOW Urine Appearance CLEAR Urine pH 6.5 Ur Specific [place] 1.010 Urine Protein 1+ H Urine Glucose (UA) NEG Urine Ketones NEG Urine Blood NEG Urine Nitrite NEG Ur Leukocyte Esterase NEG Urine RBC 1-4 Urine WBC 0-2 Ur Squamous Epith Cells TRACE Urine Bacteria NONE Urine Mucus TRACE COVID-19 (MILLICENT) Negative COVID-19 Clin Com See Note Imaging Radiologist's Impressions: Impressions Chest X-Ray 05/18/20 12:44 IMPRESSION: Unremarkable examination. Head CT 05/18/20 12:45 IMPRESSION: Large left occipital infarct that appears subacute to old. This is new in the interval from 2018 exam. Generalized atrophy, nonspecific periventricular white matter disease and old bilateral basal ganglia lacunar infarct similar to previous exam. Partially visualized 1 x 1.4 cm soft tissue nodule in the left cheek just deep to the skin. Head/Neck CTA 05/18/20 13:35 IMPRESSION: 1. Acute to subacute infarct of the left TRAFFIC CONTROL SPECIALIST territory involving the parasagittal left occipital lobe and posterior mesial temporal lobe. No evidence of hemorrhagic conversion. 2. Occlusion of the P2-P3 junction of the left TRAFFIC CONTROL SPECIALIST. 3. CTA of the head and neck without additional proximal occlusion or flow-limiting stenosis. 4. Mild to moderate underlying microangiopathy and generalized cerebral volume loss. Chronic lacunar infarcts of the bilateral lentiform nuclei. 5. Patchy airspace disease in the lateral and dependent upper lungs suggestive of an infectious/inflammatory process. Assessment and Plan (1) Stroke: Qualifiers: CVA mechanism: embolism Laterality of affected vessel: unspecified Precerebral and cerebral artery: posterior cerebral artery Qualified Code(s): I63.439 - Cerebral infarction due to embolism of unspecified posterior cerebral artery Status: Acute 65-year-old man admitted with acute stroke. Also found to have new onset of atrial fibrillation with rapid ventricular response. Stroke. History of CVA in the past. Will order MRI, echocardiogram, neurology to follow, aspirin, statin, PT/OT. Atrial fibrillation with rapid ventricular response. Treated with IV Cardizem in the ER. Converted to sinus rhythm. Will continue Cardizem 30 mg every 6 hours. Cardiology to follow. Echocardiogram. Check TSH, Mag. Hypertension. Stable blood pressure. Hold antihypertensives. Smoker. Nicotine replacement therapy. Discussed the importance of smoking cessation. DVT prophylaxis with heparin Case discussed with Dr. Rowley Full code
[2020-05-18 20:14] LABS: Magnesium 1.9 mg/dL (1.6-2.6)
[2020-05-18] MEDS: Heparin Sodium,Porcine 5,000 UNIT/ML VIAL 5000 UNIT SUBCUT (22:05)
[2020-05-18] MEDS: dilTIAZem HCL 30 MG TABLET PO (22:06)
--- NOTE | 2020-05-18 22:09 | PC.NURSE ---
pt passed swallow eval before po medication given. neuro, pt is alert to person, not to , presedent of US, pt vague on what hospital. pt knows he is in a hospital. pt follows commands, hand grasp equal and strong, no facial droop noted.
[2020-05-19] VITALS (16 sets, daily range): BP systolic 160–235; BP diastolic 81–112; PULSE 60–83; RESP 14–20; TEMP 36.2–36.9; O2SAT 97–98
[2020-05-19 01:00] LABS: Troponin-I High Sensitivity 53.9 ng/L (<3.5-35.0)
[2020-05-19 06:28] LABS: MANUAL DIFF FLAG NO
[2020-05-19] MEDS: Nicotine Polacrilex 2 MG GUM BUCCAL (06:35)
[2020-05-19 06:42] LABS: Basophils Absolute Auto 0.1 X10*3/uL (0.0-0.2); Basophils Percent Auto 0.7 % (0-2); Eosinophils Percent Auto 0.6 % (0-4); Hematocrit 49.1 % (42-52); Hemoglobin 16.8 g/dl (14.0-18.0); Imm Gran Abs Auto 0.01 X10*3/uL (0.00-0.03); Imm Gran Pct Auto 0.1 % (0.0-0.4); Lymphocytes Absolute Auto 2.9 X10*3/uL (1.2-4.9); Lymphocytes Percent Auto 43.2 % (20-40); Mean Corpuscular HGB Conc 34.2 g/dl (31.0-36.0); Mean Corpuscular Hemoglobin 29.8 pg (27.0-33.0); Mean Corpuscular Volume 87.2 fL (80-98); Mean Platelet Volume 11.2 fL (9.4-12.4); Monocytes Absolute Auto 0.9 X10*3/uL (0.1-1.2); Monocytes Percent Auto 13.4 % (2-11); Neutrophils Absolute Auto 2.8 X10*3/uL (2.0-8.3); Platelet Count 183 X10*3/uL (160-400); Red Blood Count 5.63 X10*6/uL (4.60-5.80); Red Cell Distribution Width 13.6 % (11.0-16.0); White Blood Count 6.7 X10*3/uL (4.8-10.8)
[2020-05-19 07:32] LABS: Anion Gap 12 (12-20); Blood Urea Nitrogen 20 mg/dL (9-16); Calcium 8.8 mg/dL (8.4-10.2); Carbon Dioxide 26 mmol/L (22-29); Chloride 105 mmol/L (96-108); Cholesterol 200 mg/dL; Creatinine Clr Calc Pharmacy 91.2; Estimated Glomerular Filt Rate > 60; Glucose Random 89 mg/dL (60-115); HDL Cholesterol 45 mg/dL; LDL Cholesterol Calculated 118 mg/dl; Potassium 3.4 mmol/l (3.3-5.1); Sodium 140 mmol/L (135-145); Triglycerides 188 mg/dL
[2020-05-19] MEDS: Aspirin Enteric Coated 81 MG TABLET.DR PO (08:35)
[2020-05-19] MEDS: Nicotine 21 MG PATCH.TD24 TRANSDERMA (08:35)
[2020-05-19] MEDS: Atorvastatin Calcium 80 MG TABLET PO (08:35)
[2020-05-19] MEDS: dilTIAZem HCL 30 MG TABLET PO ×5 (08:35→22:06)
[2020-05-19] MEDS: Acetaminophen 325 MG TABLET 650 MG PO ×2 (08:35→17:44)
[2020-05-19] MEDS: Heparin Sodium,Porcine 5,000 UNIT/ML VIAL 5000 UNIT SUBCUT ×2 (08:35→22:05)
--- NOTE | 2020-05-19 10:15 | PC.NURSE ---
Patient with elevated blood pressures since admission. Overnight nurse messaged with no new orders. notified this AM, additional 30mg PO cardizem given for a total of 60mg PO Cardizem this morning. Patient complained of a little headache, but it could be from nicotine and alcohol withdrawl . Pt also medicated with PRN tylenol, PRN nicotine gum and scheduled nicotine Patch. Manual blood pressure last 190/108. Mayra Johns, Cardiology & Neurology at bedside for initial eval this am. Plan for med adjustment, MRI & blood pressure monitoring.
--- NOTE | 2020-05-19 10:28 | P.CNNE_ITS ---
History of Present Illness Data of Consult Service Date: 05/19/20 Primary Care Provider: Aldo Browning MD 65 years old man with underlying history of hypertension and alcohol abuse, th gh he stated that now he was drinking only couple of alcoholic beverages a day, came to hospital with suspicion of stroke. His symptoms started at least a day or maybe 2 days before he came to hospital when he was not doing well. He woke up and complained of visual symptoms and was brought to hospital. He continues to have that complained that he was not able to see well on right side. There w as no associated double vision nausea or vomiting. Review of Systems ENT: Denies dizziness Neurologic: Reports system reviewed and no additional complaints, except as documented, Denies dizziness and Denies Sensory deficit (Neuro) [facility] Past Medical History Medical History (Updated 05/18/20 @ 19:41 by Meg Jackson NP) Abdominal aortic aneurysm Chronic constipation CVA (cerebral vascular accident) Gout Hypertension Family History Family History (Updated 05/18/20 @ 19:42 by Meg Jackson NP) Father Colon cancer Surgical History Surgical History History of appendectomy Social History Social History (Updated 05/18/20 @ 19:43 by Meg Jackson NP) Household Members: Spouse Housing: House Do you presently have visiting nurse or other home services: No Alcohol intake: current Alcohol intake frequency: 0-2 drinks per day Smoking Status: Current every day smoker Tobacco Type: Cigar Packs Per Day: 1 Cigarettes Per Day: 20 Smoked in Last 30 Days: Yes Patient Interested in Nicotine Replacement: No Patient Given Instructions on How to Stop Smoking: No Second Hand Smoke Exposure: No Use of substances other than those prescribed or required for medical reasons: No Substance Use Type: Marijuana Substance Use Frequency: Daily Last Used Substance: Days (ago) Currently Displaying Signs/Symptoms of Drug Intoxication Withdrawal: No Any prior treatment program specific to substance use: No Have you been hit, kicked, punched, or otherwise hurt by someone within the past year? If so, by whom?: No Do you feel safe in your current relationship?: Yes Is there a partner from a previous relationship who is making you feel unsafe now?: No Are you made to feel afraid or neglected: No Advance Directives: No Advance Directives Information Provided: Yes Advance Directives on File: No Do you have thoughts of harming others: None Do you have a plan to hurt others: No Plan Recently lost weight without trying: No Meds Allergies Allergy/AdvReac Type Severity Reaction Status Date / Time No Known Allergies Allergy Verified 03/22/20 14:49 [No Known Allergies*] Home Medications Medication Instructions Recorded Confirmed Type allopurinol 300 mg tablet 150 mg PO DAILY 02/23/20 05/18/20 History Physical Exam Vital Signs: Vital Signs: Last Vital Signs Temp 98.4 F 05/19/20 07:44 Pulse 83 05/19/20 10:21 Resp 20 05/19/20 07:44 BP 190/108 H 05/19/20 10:21 Pulse Ox 98 05/19/20 07:44 Body Mass Index 27.3 He was alert and awake with normal spontaneity of speech fluency comprehension and anxious affect. Pupils were round reactive to light. He has a right hemianopsia. There was no pronator drift. Deep tendon reflexes were trace to 1+ with flexor plantars. There was no obvious sensory extension. [id number] testing was okay. Neuro: Sensory Exam: No Sensory deficit (Neuro) Results Labs CBC & Chem 7: 05/19/20 06:02 05/19/20 06:02 Labs: Short CBC 05/18/20 05/19/20 Range/Units 12:46 06:02 WBC 7.6 6.7 (4.8-10.8) X10*3/uL Hgb 18.8 H 16.8 (14.0-18.0) g/dl Hct 53.6 H 49.1 (42-52) % Plt Count 220 183 (160-400) X10*3/uL [facility] 05/18/20 05/19/20 12:46 06:02 Sodium 138 140 Potassium 3.5 3.4 Chloride 97 105 Carbon Dioxide 24 26 BUN 23 H 20 H Creatinine 0.91 0.76 Calcium 9.8 8.8 D Liver Function 05/18/20 Range/Units 12:46 Total Bilirubin 0.9 (0.0-1.0) mg/dL Direct Bilirubin 0.5 (0.0-0.5) mg/dL AST 56 H (5-37) U/L ALT 81 H (0-40) U/L Alkaline Phosphatase 76 (39-117) U/L Albumin 4.5 (3.5-5.0) g/dL Urine 05/18/20 Range/Units 14:34 Urine Color YELLOW Urine Appearance CLEAR Urine pH 6.5 (5.0-8.0) Ur Specific [place] 1.010 (1.005-1.025) Urine Protein 1+ H (NEG-TRACE) MG/DL Urine Glucose (UA) NEG (NEG) MG/DL His noncontrast head CT revealed a large area of hypodensity in left posterior cerebral artery territory suggestive of a subacute infarct. Mild cerebellar more than cerebral atrophy and mild microvascular ischemic changes of chronic nature were also noted. CTA revealed left P2 occlusion but otherwise no significant stenosis. His EKG in the ER reveal atrial fibrillation and he was treated with medicine. Assessment and Plan (1) Stroke: Qualifiers: CVA mechanism: embolism Laterality of affected vessel: unspecified Precerebral and cerebral artery: posterior cerebral artery Qualified Code(s): I63.439 - Cerebral infarction due to embolism of unspecified posterior cerebral artery Status: Acute 65 years old man with underlying history of hypertension and possibly alcohol abuse who presents with subacute left posterior cerebral artery infarct that happened probably a day or 2 before he came to emergency room. This resulted in dense hemianopsia on the right side. He was also very narendra trophobic and did not want have an MRI of brain. I do not think we particularly need MRI at this time. Reason for stroke likely is cardiac source of embolism from atrial fibrillation. Mainstay of management at this time is to avoid hypotension while treating hypertension. I would avoid dropping his mean arterial pressure below 110. Otherwise cardiology evaluation is needed. In the longer on he would benefit from anticoagulation for further stroke prophylaxis. This can be started in a week time from now. Physical and occupational therapy consultation should be obtained especially for visual field defect. He should not drive at this time and I do not think he would be able to safely drive in future.
--- NOTE | 2020-05-19 11:12 | P.EN_ITS ---
Event Note Date of Service: 05/19/20 Event Note: Full consult dictated. Stable from aortic perspective. Acute left- sided stroke. Does not appear to be related to carotids. Continue medical management, and workup.
--- NOTE | 2020-05-19 11:12 | PM.EVENT ---
Event Note Date of Service: 05/19/20 Event Note: Full consult dictated. Stable from aortic perspective. Acute left-sided stroke. Does not appear to be related to carotids. Continue medical management, and workup.
--- NOTE | 2020-05-19 14:15 | MHC.CM.PN ---
Male 65 DX CVA. He lives w x- Eli. He has been independent all functional mobility prior to hospitalization. He is [employer]. Speech is clear. Short term memory deficit and visual deficit noted. HCP documented, placed on chart. Copies were given to the Pt. DP home no services Family transport. CM will follow for change in DC needs
--- NOTE | 2020-05-19 16:18 | PM.CNCAR ---
History of Present Illness History of Present Illness Date of Service: 05/19/20 Consult reason: atrial fibrillation Chief complaint: Stroke Narrative: This is a cardiology consultation regarding atrial fibrillation and stroke. He was admitted with visual changes as well as some memory issues, headache and feeling off balance. Then head CT had shown large occipital infarction. He was also found to be in atrial fibrillation with rapid rates. It appears that after Cardizem drip, he converted to sinus rhythm. He also has high blood pressure. Overall, patient does not have any specific cardiac complaints at this time. He does not have any angina or shortness of breath or palpitations. It appears that he does have hypertension but does not appear that he really takes any medications at home. We had actually seen him about 2 years ago for hypertensive urgency. Even at that time there were issues taking blood pressure medications. Review of Systems Review of Systems: Yes all other systems are reviewed and are negative ENT: Denies dizziness Cardiovascular: Cardiovascular: Reports as per HPI, Reports no additional cardiovascular complaints, Denies acrocyanosis, Denies cool extremities, Denies painful fingertips, Denies chest pain, Denies chest pain at rest, Denies diaphoresis, Denies syncope, Denies irregular heart rhythm, Denies claudication, Denies leg edema, Denies lightheadedness, Denies palpitations and Denies dyspnea Respiratory: Respiratory: Denies dyspnea Neurologic: Reports system reviewed and no additional complaints, except as documented, Denies dizziness, Denies syncope and Denies Sensory deficit (Neuro) Endocrine: Endocrine: Denies palpitations PMFSH Past Medical History Medical History (Updated 05/19/20 @ 16:27 by Farhan Paulino MD) Abdominal aortic aneurysm Chronic constipation CVA (cerebral vascular accident) Gout Hypertension Family History Family History (Updated 05/18/20 @ 19:42 by Meg Jackson NP) Father Colon cancer Surgical History Surgical History History of appendectomy Social History Social History (Updated 05/18/20 @ 19:43 by Meg Jackson NP) Household Members: Spouse Housing: House Do you presently have visiting nurse or other home services: No Alcohol intake: current Alcohol intake frequency: 0-2 drinks per day Smoking Status: Current every day smoker Tobacco Type: Cigar Packs Per Day: 1 Cigarettes Per Day: 20 Smoked in Last 30 Days: Yes Patient Interested in Nicotine Replacement: No Patient Given Instructions on How to Stop Smoking: No Second Hand Smoke Exposure: No Use of substances other than those prescribed or required for medical reasons: No Substance Use Type: Marijuana Substance Use Frequency: Daily Last Used Substance: Days (ago) Currently Displaying Signs/Symptoms of Drug Intoxication Withdrawal: No Any prior treatment program specific to substance use: No Have you been hit, kicked, punched, or otherwise hurt by someone within the past year? If so, by whom?: No Do you feel safe in your current relationship?: Yes Is there a partner from a previous relationship who is making you feel unsafe now?: No Are you made to feel afraid or neglected: No Advance Directives: No Advance Directives Information Provided: Yes Advance Directives on File: No Do you have thoughts of harming others: None Do you have a plan to hurt others: No Plan Recently lost weight without trying: No service: No Current occupational status: retired [employer] Allergies Allergy/AdvReac Type Severity Reaction Status Date / Time No Known Allergies Allergy Verified 03/22/20 14:49 [No Known Allergies*] Home Medications Medication Instructions Recorded Confirmed Type allopurinol 300 mg tablet 150 mg PO DAILY 02/23/20 05/18/20 History Physical Exam Vital Signs: Vital Signs: Last Vital Signs Temp 98.4 F 05/19/20 15:36 Pulse 69 05/19/20 15:36 Resp 18 05/19/20 15:36 BP 169/87 H 05/19/20 15:36 Pulse Ox 97 05/19/20 15:36 Body Mass Index 27.3 Const: General: cooperative, comfortable and no acute distress Orientation/consciousness: patient oriented x3 HENMT: Other: Unremarkable Neck: Neck: Yes normal visual inspection Chest: Chest palpation & inspection: normal inspection of the chest Resp: Auscultation: clear to auscultation bilaterally, no crackles and no wheezes Cardio: Jugular venous distension: no JVD Palpation: normal PMI Heart sounds: S1 normal heart sound present, S2 normal heart sound present, no gallops, no murmurs and no rubs GI: Palpation (GI): Soft to palpation Back/Spine/Pelvis: Other: unremarkable Skin: General skin exam: no rashes or lesions noted Neuro: General: patient oriented x3 Sensory Exam: No Sensory deficit (Neuro) Extrem: General: Yes no clubbing, cyanosis or edema Psych: Mental Status: mental status grossly normal Results Labs and Meds Result diagrams: 05/19/20 06:02 05/19/20 06:02 Lab results: Laboratory Results - last 24 hr 05/18/20 05/19/20 05/19/20 12:46 00:10 06:02 WBC 6.7 RBC 5.63 Hgb 16.8 Hct 49.1 MCV 87.2 MCH 29.8 MCHC 34.2 RDW 13.6 Plt Count 183 MPV 11.2 Immature Gran % (Auto) 0.1 Neut % (Auto) 42.0 L Lymph % (Auto) 43.2 H [place] % (Auto) 13.4 H Eos % (Auto) 0.6 Baso % (Auto) 0.7 Lymph # (Auto) 2.9 [place] # (Auto) 0.9 Eos # (Auto) 0.0 Baso # (Auto) 0.1 Abs Immat Gran (auto) 0.01 Absolute Neuts (auto) 2.8 Absolute Nucleated RBC 0.000 Nucleated RBC % (auto) 0.0 Sodium Potassium Chloride Carbon Dioxide Anion Gap BUN Creatinine Estim Creat Clear Calc Estimated GFR Random Glucose Calcium Magnesium 1.9 Troponin I High Sens 53.9 H Triglycerides Cholesterol LDL Cholesterol, Calc HDL Cholesterol TSH 2.70 05/19/20 06:02 WBC RBC Hgb Hct MCV MCH MCHC RDW Plt Count MPV Immature Gran % (Auto) Neut % (Auto) Lymph % (Auto) [place] % (Auto) Eos % (Auto) Baso % (Auto) Lymph # (Auto) [place] # (Auto) Eos # (Auto) Baso # (Auto) Abs Immat Gran (auto) Absolute Neuts (auto) Absolute Nucleated RBC Nucleated RBC % (auto) Sodium 140 Potassium 3.4 Chloride 105 Carbon Dioxide 26 Anion Gap 12 BUN 20 H Creatinine 0.76 Estim Creat Clear Calc 91.2 Estimated GFR > 60 Random Glucose 89 Calcium 8.8 D Magnesium Troponin I High Sens Triglycerides 188 Cholesterol 200 LDL Cholesterol, Calc 118 HDL Cholesterol 45 TSH ECG Attestation: I personally reviewed and interpreted this ECG as follows: Interpretation: EKGs reviewed. Initial EKG shows tachycardia at 142/Min. In the 2nd half of the EKG the rhythm is clearly sinus. In the 1st part there are some P waves but subsequently probably runs of PACs. In the subsequent EKG, underlying rhythm was sinus with premature ventricular contractions and possibly some premature atrial contractions too. Telemetry shows sinus. Assessment and Plan (1) Stroke: Qualifiers: CVA mechanism: embolism Laterality of affected vessel: unspecified Precerebral and cerebral artery: posterior cerebral artery Qualified Code(s): I63.439 - Cerebral infarction due to embolism of unspecified posterior cerebral artery Status: Acute (2) Uncontrolled hypertension: Status: Acute (3) Atrial arrhythmia: Status: Acute His blood pressures seem very high. Maximum blood pressure was 235/110 mm Hg. Most recent blood pressure is 169/87 mm Hg. He has been commenced on Diltiazem for the atrial arrhythmia which is reasonable. From the EKG, 1 part of it is sinus but in the other half there is a narrow complex tachycardia which could be atrial tachycardia but cannot definitively exclude atrial fibrillation. ?Atrial fibrillation in ER and he apparently was on cardizem drip. For now, he may remain on diltiazem. Additional medications for blood pressure management to be decided. Will also plan on anticoagulation in due course. TO discuss with neurology. Echocardiogram to be obtained. Slightly elevated high sensitivity troponins noted -40 and 53. Probably response to stroke and uncontrolled hypertension. Less likely to be a plaque rupture.
--- NOTE | 2020-05-19 17:18 | HO.PM.IMPN ---
Subjective Subjective Date of Service: 05/20/20 Interval History: Patient admitted for acute stroke complaining of frontal headache, is still confused not aware of place, no new neuro deficit since admit. Review of Systems General headache,no fever chills. CVS no chest pain, no palpitation. Respiratory no cough, no sputum production, no respiratory distress. Gastrointestinal no nausea, no vomiting, no abdominal pain Physical Exam Vital Signs: Vital Signs: Last Vital Signs Temp 98.4 F 05/19/20 15:36 Pulse 69 05/19/20 15:36 Resp 18 05/19/20 15:36 BP 169/87 H 05/19/20 15:36 Pulse Ox 97 05/19/20 15:36 Body Mass Index 27.3 General no acute distress. Neck supple no JVD. CVS regular rate rhythm, Respiratory lungs clear to auscultation, no respiratory distress Gastrointestinal abdomen soft, nontender, bowel sounds audible Extremities no clubbing cyanosis or edema. Neuro speech clear, right hemianopsia normal upper and lower is strength and tone. Skin no rash Objective Data Current Medications Generic Name Dose Route Start Last Admin Trade Name Freq PRN Reason Stop Dose Admin Acetaminophen 650 mg 05/18/20 19:50 05/19/20 08:35 Acetaminophen 325 Mg Tablet PO 650 mg Q6H PRN Administration Pain, Mild (Pain Scale 1-3) Aspirin 81 mg 05/19/20 09:00 05/19/20 08:35 Aspirin Enteric Coated 81 Mg Tablet. PO 81 mg DAILY NURIS Administration Atorvastatin Calcium 80 mg 05/19/20 09:00 05/19/20 08:35 Atorvastatin Calcium 80 Mg Tablet PO 80 mg DAILY NURIS Administration Diltiazem HCl 30 mg 05/18/20 21:00 05/19/20 14:23 Diltiazem Hcl 30 Mg Tablet PO 30 mg QID NURIS Administration Protocol Heparin Sodium (Porcine) 5,000 unit 05/18/20 20:00 05/19/20 08:35 Heparin Sodium,Porcine 5,000 Unit/Ml Vial SUBCUT 5,000 unit Q12H NURIS Administration Nicotine 21 mg 05/19/20 09:00 05/19/20 08:35 Nicotine 21 Mg Patch.Td24 TRANSDERMA 21 mg DAILY NURIS Administration Nicotine Polacrilex 2 mg 05/18/20 19:52 05/19/20 06:35 Nicotine Polacrilex 2 Mg Gum BUCCAL 2 mg Q2H PRN Administration withdrawl Ondansetron HCl 4 mg 05/18/20 19:50 Ondansetron Hcl 4 Mg/2 Ml Vial IVPUSH Q8H PRN Nausea and Vomiting Pharmacy Consult 1 each 05/18/20 16:12 Consult Rx Perform Med Rec MISCELLANE ONCE PRN Consult order Labs CBC & Chem 7: 05/19/20 06:02 05/19/20 06:02 Assessment and Plan (1) Atrial arrhythmia: Status: Acute (2) Uncontrolled hypertension: Status: Acute (3) Stroke: Status: Acute (4) Atrial fibrillation: Status: Acute (5) Abdominal aortic aneurysm: Problem details: 04/[address] scan showed 4.2 cm abdominal aortic aneurysm. Status: Acute (6) Chronic constipation: Status: Acute (7) Gout: Status: Acute (8) 2019 novel coronavirus disease (COVID-19): Status: Acute (9) Hypertension: Status: Acute Assessment and Plan: 65-year-old man admitted with acute stroke. Also found to have new onset of atrial fibrillation with rapid ventricular response. left posterior cerebral artery infarction Patient with dense right hemianopsia, mild confusion and headache Patient unable to tolerate MRI due to claustrophobia, therefore will hold MRI Will control blood pressure to keep map above 110, follow BP closely, will add aspirin , Lipitor Follow echocardiogram Continue aspirin obtain PT OT eval Carotids shows no obstruction, Will discuss with Neurology whether stroke appears thromboembolic from cardiac source versus related to hypertension, Dr. Rene will review abdominal aortic aneurysm with seems less likely source of stroke. Question Atrial fibrillation Case discussed with Cardiology it seems that patient had atrial tachycardia with rapid ventricular response. Treated with IV Cardizem in the ER. Converted to sinus rhythm. Will continue Cardizem 30 mg every 6 hours. Cardiology to follow. Echocardiogram. Check TSH, Mag. Hypertension. Significantly elevated blood pressure, continue Cardizem CD 30 mg q.6 hours and changed to Cardizem CD at am, added lisinopril Stable blood pressure. Hold antihypertensives. As per patient was not very compliant with blood pressure medications and always had high blood pressure around 170,s Smoker. Nicotine replacement therapy. Strongly recommend to abstain from alcohol. History of daily alcohol consumption with no history of withdrawal seizure or delirium tremens , no tremors noted will give Ativan due to anxiety and follow clinical course. DVT prophylaxis with heparin
--- NOTE | 2020-05-19 19:20 | CONS_ITS ---
DATE OF SERVICE: 05/19/2020 REASON FOR CONSULTATION: 1. Stroke. 2. Aortic aneurysm. HISTORY OF PRESENT ILLNESS: A 65-year-old gentleman with history of right-sided visual changes and memory changes, headache, and felt off balance. He just did not feel his usual self and he was subsequently brought into the hospital by his . He was at that time worked up by the emergency room team and after a CTA demonstrated a large left occipital infarct occlusion, he was then subsequently admitted. He had further imaging studies at the current time. He does have some difficulty with his memory according to him, but appears to be in fairly good spirits, usual humor. No strength or mechanical deficits that he can note. He now presents for vascular evaluation. PAST MEDICAL HISTORY: Significant for hypertension, hyperlipidemia, abdominal aortic aneurysm, chronic constipation, gout, and the above-mentioned CVA. PAST SURGICAL HISTORY: Includes appendectomy. MEDICATIONS: Medication list was reviewed per nursing MAR. ALLERGIES: HE HAS NO KNOWN DRUG ALLERGIES. SOCIAL HISTORY: He continues to smoke at least a pack a day. Minimal alcohol intake. He does admit to occasional marijuana use, but no history of any IV drug abuse. FAMILY HISTORY: No history of early onset peripheral vascular disease or coronary artery disease. REVIEW OF SYSTEMS: A 13-point review was performed. At the current time, denies any headache, dizziness, nausea, vomiting, diarrhea, or shortness of breath. He does not know any deficit at the current time. Rest of 13-point review was essentially negative. PHYSICAL EXAMINATION: VITAL SIGNS: Afebrile. Vitals stable. HEAD AND NECK: Demonstrates no bruits. CHEST: He is moving air bilaterally. CARDIAC: Positive S1, S2. ABDOMEN: Soft. EXTREMITIES: Upper extremities have good radial and ulnar pulses. Lower extremities are warm with good capillary refill. NEUROLOGICAL: At the time of my exam II-XII grossly intact. PSYCH: Mood and affect appear within normal limits. IMAGING: I personally reviewed the imaging myself written report and direct visualization and independent interpretation of films. Head CT did demonstrate a large left occipital infarct. Then, CTA of head and neck confirms this infarct of the left [employer] territory. The carotids do not appear to have any significant disease. Prior imaging demonstrates a 4.6 cm aneurysm, although, it does have some eccentric plaque highly unlikely source of infarct. IMPRESSION: Stroke, unclear etiology or source of this stroke. It is clearly not from the carotids. I highly doubt that the aortic aneurysm with atherosclerosis may be the source of this. If stable from a medical perspective, ideally would benefit from dual anti-platelet therapy of aspirin and Plavix. Continue medical workup. We will follow peripherally with you. Thank you for allowing us to assist in his care. If any questions or concerns, please do not hesitate to contact us. MD THELMA Mendoza/MACHO / [phone]
[2020-05-20] VITALS (18 sets, daily range): BP systolic 140–220; BP diastolic 76–108; PULSE 56–90; RESP 16–80; TEMP 36.2–36.6; O2SAT 96–98
[2020-05-20] MEDS: hydrALAZINE HCl 20 MG/ML VIAL 10 MG IVPUSH ×2 (00:16→04:38)
[2020-05-20] MEDS: Labetalol HCL 100 MG/20 ML VIAL 10 MG IVPUSH (02:34)
[2020-05-20] MEDS: Acetaminophen 325 MG TABLET 650 MG PO ×2 (04:36→14:28)
--- NOTE | 2020-05-20 05:27 | PC.NURSE ---
Patient's blood pressure elevated, 210/100 at 12 mn, Dr. Mauricio notified. Patient c/o slight headache. Hydralazine 10 mg x2 IV, and Labetolol 10 mg x1 ordered and administered. Tylenol 650mg po given for headache. Blood pressure remains elevated 200/108, heart rate 68. Pateint sleeping at present time. Will continue to monitor.
[2020-05-20] MEDS: Aspirin Enteric Coated 81 MG TABLET.DR PO (07:54)
[2020-05-20] MEDS: Atorvastatin Calcium 80 MG TABLET PO (07:55)
[2020-05-20] MEDS: Heparin Sodium,Porcine 5,000 UNIT/ML VIAL 5000 UNIT SUBCUT ×2 (07:55→21:38)
[2020-05-20] MEDS: Nicotine 21 MG PATCH.TD24 TRANSDERMA (07:55)
[2020-05-20] MEDS: dilTIAZem HCL CD 240 MG CAP.ER.DEG PO (07:55)
--- NOTE | 2020-05-20 09:00 | MR_ITS ---
EXAMINATION: BRAIN MRI THE CONTRAST CLINICAL INFORMATION: Stroke. COMPARISON: CT angiogram of the head and neck 05/18/2020. TECHNIQUE: Multiplanar MR imaging of the brain was performed without contrast. FINDINGS: There is restricted diffusion involving the vascular territory of the left posterior cerebral artery consistent with an acute infarct. There is a regional sulcal effacement. No overt hemorrhagic transformation. No midline shift or hydrocephalus. In addition to this acute finding there are numerous foci of T2 FLAIR signal hyperintensity primarily distributed throughout the periventricular white matter and latha that most likely represent a chronic manifestation of small vessel ischemia. Intracranial vascular flow voids are grossly maintained. There are a few small pockets foci of magnetic susceptibility artifact within the latha. Midline structures including the cervicomedullary junction are normal. No acute bone marrow signal changes. There is no mastoid middle ear effusion. No active sinus disease. Globes and orbits are symmetric. MR/MR head/brain wo con IMPRESSION: There is an acute infarct involving the vascular territory of left posterior cerebral artery and scattered chronic small vessel ischemic changes primarily involving the periventricular white matter and latha. No evidence of hemorrhagic transformation. There are however a few small chronic microhemorrhages centered within the latha suggesting the possibility of underlying hypertensive angiopathy.
--- NOTE | 2020-05-20 11:31 | PM.PNCARD ---
Subjective Subjective Date of Service: 05/20/20 Interval history: He has no specific cardiac symptoms at this time Review of Systems Review of Systems Yes all other systems are reviewed and are negative and Unobtainable due to mental status Denies dizziness Cardiovascular: Reports no additional cardiovascular complaints, Denies chest pain, Denies syncope, Denies palpitations and Denies dyspnea Respiratory: Denies dyspnea Reports system reviewed and no additional complaints, except as documented, Denies dizziness, Denies syncope and Denies Sensory deficit (Neuro) Endocrine: Denies palpitations Physical Exam Vital Signs: Last Vital Signs Temp 97.1 F 05/20/20 07:27 Pulse 75 05/20/20 11:19 Resp 20 05/20/20 07:27 BP 185/90 H 05/20/20 11:19 Pulse Ox 98 05/20/20 07:27 Body Mass Index 27.3 Const General: cooperative, comfortable and no acute distress Orientation/consciousness: patient oriented x3 HENMT Other: Unremarkable Neck Neck: Yes normal visual inspection Chest Chest palpation & inspection: normal inspection of the chest Resp Auscultation: clear to auscultation bilaterally, no crackles and no wheezes Cardio Jugular venous distension: no JVD Palpation: normal PMI Heart sounds: S1 normal heart sound present, S2 normal heart sound present, no gallops, no murmurs and no rubs GI Palpation (GI): Soft to palpation Back/Spine/Pelvis Other: unremarkable Skin General skin exam: no rashes or lesions noted Neuro General: patient oriented x3 Sensory Exam: No Sensory deficit (Neuro) Extrem General: Yes no clubbing, cyanosis or edema Psych Mental Status: mental status grossly normal Results Labs and Meds Result diagrams: 05/19/20 06:02 05/19/20 06:02 Imaging Radiologist's impression: Impressions Brain MRI 05/20/20 09:00 IMPRESSION: There is an acute infarct involving the vascular territory of left posterior cerebral artery and scattered chronic small vessel ischemic changes primarily involving the periventricular white matter and latha. No evidence of hemorrhagic transformation. There are however a few small chronic microhemorrhages centered within the latha suggesting the possibility of underlying hypertensive angiopathy. Progress Note: A&P Assessment and plan (1) Stroke: Status: Acute (2) Uncontrolled hypertension: Status: Acute (3) Atrial arrhythmia: Status: Acute Assessment and Plan: His blood pressures continue to be quite high. This will need to be optimally managed. He has been commenced on lisinopril that is very appropriate. Will most likely need additional meds. Questionable compliance to meds at home. With regard to the question of atrial fibrillation, admission EKG with a narrow complex tachycardia which could be atrial tachycardia or flutter vs fibrillation in the 1st part but the 2nd half of the EKGs sinus/PACs. There was apparently atrial fibrillation noted on telemetry while he was in the ER but we do not have strips of that. Overall, empiric anticoagulation is reasonable if this stroke is felt to be embolic. To discuss with neurology. Echocardiogram to be obtained. Slightly elevated high sensitivity troponins noted -40 and 53. Probably response to stroke and uncontrolled hypertension. Less likely to be a plaque rupture. Fall Risk Details Current Medications: Current Medications Generic Name Dose Route Start Last Admin Trade Name Freq PRN Reason Stop Dose Admin Acetaminophen 650 mg 05/18/20 19:50 05/20/20 04:36 Acetaminophen 325 Mg Tablet PO 650 mg Q6H PRN Administration Pain, Mild (Pain Scale 1-3) Aspirin 81 mg 05/19/20 09:00 05/20/20 07:54 Aspirin Enteric Coated 81 Mg Tablet. PO 81 mg DAILY NURIS Administration Atorvastatin Calcium 80 mg 05/19/20 09:00 05/20/20 07:55 Atorvastatin Calcium 80 Mg Tablet PO 80 mg DAILY NURIS Administration Diltiazem HCl 360 mg 05/21/20 09:00 Diltiazem Hcl Cd 240 Mg Cap.Er.Deg PO DAILY NURIS Protocol Heparin Sodium (Porcine) 5,000 unit 05/18/20 20:00 05/20/20 07:55 Heparin Sodium,Porcine 5,000 Unit/Ml Vial SUBCUT 5,000 unit Q12H NURIS Administration Lisinopril 40 mg 05/21/20 09:00 Lisinopril 40 Mg Tablet PO DAILY NURIS Protocol Lisinopril 20 mg 05/20/20 11:29 Lisinopril 20 Mg Tablet PO 05/20/20 11:30 NOW STA Protocol Nicotine 21 mg 05/19/20 09:00 05/20/20 07:55 Nicotine 21 Mg Patch.Td24 TRANSDERMA 21 mg DAILY NURIS Administration Nicotine Polacrilex 2 mg 05/18/20 19:52 05/19/20 06:35 Nicotine Polacrilex 2 Mg Gum BUCCAL 2 mg Q2H PRN Administration withdrawl Ondansetron HCl 4 mg 05/18/20 19:50 Ondansetron Hcl 4 Mg/2 Ml Vial IVPUSH Q8H PRN Nausea and Vomiting Pharmacy Consult 1 each 05/18/20 16:12 Consult Rx Perform Med Rec MISCELLANE ONCE PRN Consult order Spironolactone 25 mg 05/20/20 11:25 Spironolactone 25 Mg Tablet PO DAILY NURIS Protocol Time Spent With Patient Time: Total time spent is greater than 50% in coordination of care (as documented) at patient's floor/unit and/or counseling patient: Time with patient: less than 15 minutes
[2020-05-20] MEDS: Spironolactone 25 MG TABLET PO (11:39)
--- NOTE | 2020-05-20 12:14 | P.PNIM_ITS ---
Subjective Subjective Date of Service: 05/20/20 Interval History: Being followed for acute CVA, persistent right hemianopsia, no new deficits patient headache and confusion is better, patient just returned from MRI study blood pressure remains significantly elevated overnight requiring multiple dosages of antihypertensive medications. Review of Systems General headache resolved,no dizziness, no fever chills, no tremors. CVS no chest pain, no palpitation. Respiratory no cough, no shortness of breath Gastrointestinal no nausea, no vomiting, no abdominal pain Physical Exam Vital Signs: Vital Signs: Last Vital Signs Temp 97.1 F 05/20/20 07:27 Pulse 90 05/20/20 11:40 Resp 20 05/20/20 07:27 BP 185/90 H 05/20/20 11:40 Pulse Ox 98 05/20/20 07:27 Body Mass Index 27.3 General patient resting comfortably in no acute distress. Neck supple no JVD. CVS regular rate rhythm, Respiratory lungs clear to auscultation, no respiratory distress Gastrointestinal abdomen soft, nontender, bowel sounds audible Extremities no clubbing, cyanosis or edema. Neuro nonfocal, patient moving all 4 extremity, speech clear. Persistent right hemianopsia. Skin no rash Objective Data Current Medications Generic Name Dose Route Start Last Admin Trade Name Freq PRN Reason Stop Dose Admin Acetaminophen 650 mg 05/18/20 19:50 05/20/20 04:36 Acetaminophen 325 Mg Tablet PO 650 mg Q6H PRN Administration Pain, Mild (Pain Scale 1-3) Aspirin 81 mg 05/19/20 09:00 05/20/20 07:54 Aspirin Enteric Coated 81 Mg Tablet. PO 81 mg DAILY NURIS Administration Atorvastatin Calcium 80 mg 05/19/20 09:00 05/20/20 07:55 Atorvastatin Calcium 80 Mg Tablet PO 80 mg DAILY NURIS Administration Diltiazem HCl 360 mg 05/21/20 09:00 Diltiazem Hcl Cd 240 Mg Cap.Er.Deg PO DAILY [facility] Protocol Heparin Sodium (Porcine) 5,000 unit 05/18/20 20:00 05/20/20 07:55 Heparin Sodium,Porcine 5,000 Unit/Ml Vial SUBCUT 5,000 unit Q12H NURIS Administration Lisinopril 40 mg 05/21/20 09:00 Lisinopril 40 Mg Tablet PO DAILY [facility] Protocol Nicotine 21 mg 05/19/20 09:00 05/20/20 07:55 Nicotine 21 Mg Patch.Td24 TRANSDERMA 21 mg DAILY NURIS Administration Nicotine Polacrilex 2 mg 05/18/20 19:52 05/19/20 06:35 Nicotine Polacrilex 2 Mg Gum BUCCAL 2 mg Q2H PRN Administration withdrawl Ondansetron HCl 4 mg 05/18/20 19:50 Ondansetron Hcl 4 Mg/2 Ml Vial IVPUSH Q8H PRN Nausea and Vomiting Pharmacy Consult 1 each 05/18/20 16:12 Consult Rx Perform Med Rec MISCELLANE ONCE PRN Consult order Spironolactone 25 mg 05/20/20 11:25 05/20/20 11:39 Spironolactone 25 Mg Tablet PO 25 mg DAILY NURIS Administration Protocol Labs CBC & Chem 7: 05/19/20 06:02 05/19/20 06:02 Microbiology Microbiology Results: Microbiology 05/19/20 00:10 Blood - Venous Blood Culture - Preliminary No growth after 24 hours. 05/19/20 00:10 Blood - Venous Blood Culture - Preliminary No growth after 24 hours. Assessment and Plan (1) Atrial arrhythmia: Status: Acute (2) Uncontrolled hypertension: Status: Acute (3) Stroke: Status: Acute (4) Atrial fibrillation: Status: Acute (5) Abdominal aortic aneurysm: Problem details: 04/[address] scan showed 4.2 cm abdominal aortic aneurysm. Status: Acute (6) Chronic constipation: Status: Acute (7) Gout: Status: Acute (8) 2019 novel coronavirus disease (COVID-19): Status: Acute (9) Hypertension: Status: Acute Assessment and Plan: 65-year-old man admitted with acute stroke. Also found to have new onset of atrial fibrillation with rapid ventricular response. left posterior cerebral artery infarction Patient with dense right hemianopsia, confusion and headache resolved, no new deficit MRI showed acute infarction involving vascular territory of left posterior cerebral artery and scattered chronic small-vessel ischemic changes involving p eriventricular white matter and latha there is also few small chronic microhemorrhages within the latha suggestive of underlying hypertensive angiopathy Carotids shows no obstruction Will aim for better blood pressure control, continue aspirin , Lipitor Follow echocardiogram Patient seen by Physical therapy and they are recommending home with occupational therapy Case discussed with Dr. Oropeza he will review echocardiogram and MRI and will feel make further suggestions for use of aspirin versus Eliquis. Question Atrial fibrillation Case discussed with Cardiology it seems that patient had atrial tachycardia with rapid ventricular response. Treated with IV Cardizem in the ER. Converted to sinus rhythm. Tele monitor shows persistent normal sinus rhythm will change Cardizem 30 mg every 6 hours to Cardizem CD 360 mg daily being followed by Cardiology follow Echocardiogram TSH, 2.7 and normal Mag. History of abdominal aortic aneurysm Patient seen by Dr. Rene, he does not feel eccentric thrombus in abdominal aneurysm is source of stroke, he recommend aspirin and Plavix. Hypertension. Significantly elevated blood pressure, will change Cardizem to 360 mg daily, lisinopril 40 mg daily, will add Aldactone 25 mg daily and follow blood pressure closely Smoker. Continue Nicotine replacement therapy. Strongly recommend to abstain from alcohol. History of daily alcohol consumption with no history of withdrawal seizure or delirium tremens , no tremors noted , will give as needed Ativan for any anxiety or tremors and follow clinical course. DVT prophylaxis with heparin
[2020-05-20] MEDS: amLODIPine Besylate 5 MG TABLET PO (16:22)
[2020-05-20] MEDS: Lactulose 20 GM/30 ML SOLUTION 15 GM PO (16:22)
[2020-05-20] MEDS: LORazepam 0.5 MG TABLET PO (16:23)
--- NOTE | 2020-05-20 19:50 | CA_ITS ---
Transthoracic Echocardiogram Amended Patient (Last, First, Middle): Wesley Acevedo, Gender: Male Date of : 1955 Age: 65 Procedure Date: 05/20/2020 Procedure Type: Transthoracic Echocardiogram Location: [facility] [place] [facility] [place] Height: 172.72 cm Weight: 82.1 kg BSA: 1.96 m2 Heart Rate: bpm BP: 210 / 112 mmHg Painter Tumbling Barrel: DSG Referring MD: Meg Jackson NP Symptoms: stroke Study Quality: Fair ECG Rhythm: Sinus Conclusions: - The left ventricular systolic function is mild to moderately decreased. The visually estimated ejection fraction is between 40-45%. - There is mild calcification of the aortic valve. Findings Left Ventricle Normal left ventricular cavity size. There is mildly increased left ventricular wall thickness. The left ventricular systolic function is mild to moderately decreased. The visually estimated ejection fraction is between 40-45%. There is mild global hypokinesis. E/E prime ratio is between 8 and 15 consistent with indeterminate filling pressures. Evidence suggests grade I (mild) diastolic dysfunction. Right Ventricle Normal right ventricular cavity size and systolic function. Atria The left atrium is normal in size. The right atrium is normal in size. Aortic Valve There is a normal trileaflet aortic valve. There is mild calcification of the aortic valve. There is no aortic valve stenosis. There is no aortic valve regurgitation. Mitral Valve The mitral valve appears normal. There is trace mitral valve regurgitation. There is no mitral valve stenosis. Pulmonic Valve The pulmonic valve was not well visualized. Tricuspid Valve Normal tricuspid valve structure. There is trace tricuspid valve regurgitation. The pulmonary artery systolic pressure is normal. Great Vessels The aorta was not well visualized. The aortic annulus is normal in size. Venous The inferior vena cava is normal in size and collapses greater than 50% with inspiration. Pericardium/Pleural There is no evidence of pericardial effusion. Prior Study Comparison No significant change compared to prior study dated: 09/04/2017. Measurements 2D Linear Measurements IVSd: 1.31 0.6-0.9/0.6-1.0 cm LVIDd: 5.86 3.9-5.3/4.2-5.9 cm LVIDd Index: 2.99 2.4-3.2/2.2-3.1 cm/m2 LVIDs: 4.46 2.0-3.6 cm LVPWd: 0.99 0.7-1.1 cm Ao Root: 3.20 2.1-3.5 cm LA Diam: 3.50 2.7-3.8/3.0-4.0 cm LAIDs Index: 1.79 1.5-2.3 cm/m2 LV Mass: 355.79 67-162/88-224 g LV Mass Index: 181.53 43-95/49-115 g/m2 LVOT Diam: 2.10 3.0+(-)1.3 cm 2D Systolic Function EF 4C: 40.50 >55% EF 2C: 62.40 >55% Mitral Valve MV Pk E: 0.58 MV PK A: 0.48 MV Decel Time: 197.00 E/A: 1.20 E'Lateral: 5.71 E'Medial: 5.22 E/E' Med: 11.10 E/E' Lat: 10.10 PHT: 58.00 MVA PHT: 3.79 Decel [place]: 2.93 Aortic Valve AoV Pk Gibran: 1.21 AoV Pk Grad: 6.00 LVOT LVOT Pk Gibran: 0.63 LVOT Mn Gibran: 0.41 LVOT VTI: 0.11 LVOT Pk Grad: 2.00 LVOT Mn Grad: 1.00 LVOT Diam: 2.10 LVOT Area: 3.46 Diastolic Function MV Pk E: 0.58 MV Pk A: 0.48 E/A: 1.20 E'Medial: 5.22 E/E' Med: 11.10 E' Laterial: 5.71 E/E' Lat: 10.10 Tricuspid Valve TR Pk Gibran: 2.01 TR Pk Grad: 16.00 RA Press: 3.00 RVSP: 19.00 Great Vessels Aorta Ao Root-2D: 3.20 2.0-3.7 cm Updated in Other Vendor System with Status of Final Farhan Paulino MD electronically signed on 05/20/2020 4:55:53 PM with status of Final
[2020-05-20] MEDS: Docusate Sodium 100 MG CAPSULE PO (21:38)
[2020-05-21] VITALS (15 sets, daily range): BP systolic 152–218; BP diastolic 76–100; PULSE 54–69; RESP 18–20; TEMP 36.1–37.1; O2SAT 97–98
--- NOTE | 2020-05-21 | CT_ITS ---
EXAMINATION: CT HEAD WITHOUT CONTRAST CLINICAL INFORMATION: Headache with uncontrolled blood pressure. COMPARISON: MRI brain 05/20/[address] brain 05/18/2020 TECHNIQUE: Contiguous axial imaging was performed from the skull base to vertex without intravenous administration of contrast. This CT examination was performed using dose optimization techniques as appropriate, variously including the following: *Automated exposure control *Adjustment of mA and/or kV according to patient size (this includes techniques or standardized protocols for targeted exams where dose is matched to indication/reason for exam; i.e. extremities or head) *Use of iterative reconstruction technique DLP: 869 mGy-cm FINDINGS: There is left occipital lobe old infarct without hemorrhagic conversion. There is no new acute infarct, bleed or midline shift. The lateral ventricles are symmetrical but enlarged and so other cortical sulci. Diffuse periventricular hypodense attenuation seen in both cerebral hemispheres consistent with chronic small vessel ischemic changes. There is left external capsule hypodensity from old lacunar infarct. The osseous structures and soft tissues are normal. The mastoid air cells and visualized portions of the paranasal sinuses are well aerated. CT/CT head/brain wo con IMPRESSION: No acute intracranial process seen. Old left mesial occipital lobe infarct without hemorrhagic conversion. No new acute infarct seen. There is lacunar infarct anterior left external capsule.
--- NOTE | 2020-05-21 | US_ITS ---
EXAMINATION: US RETROPERITONEAL LIMITED (RENAL ONLY), RENAL DOPPLER CLINICAL INFORMATION: Resistant hypertension. COMPARISON: None TECHNIQUE: Multiple 2D grayscale and duplex Doppler ultrasound images of the renal arteries were obtained. FINDINGS: Clinical History: Refractory hypertension, rule out renal artery stenosis. The right kidney measures 11.2 cm. There is no hydronephrosis or nephrolithiasis. Arterial velocities are as follows: Intrarenal: Resistive index, 0.7 Right renal artery: Hilum: 100 cm/sec Mid:124 cm/sec Proximal: 211 cm/sec The right renal vein demonstrated normal venous waveforms. RAR: 4.1 The left kidney measures 11.3 cm. There is no hydronephrosis or nephrolithiasis. Intrarenal: Resistive index 0.7 Left renal artery: Hilum: 140 cm/sec Mid: 92 cm/sec Proximal: 133 cm/sec The left renal vein demonstrated normal venous waveforms. RAR: 2.7 Aortic velocities measure up to 52 cm/sec. The abdominal aorta shows atherosclerosis and ectasia up to 4.2 cm distally. Renal to aortic velocity ratios are within the range of normal. Normal low resistance arterial wave forms are noted in both renal arteries. The visualized inferior vena cava is unremarkable. The urinary bladder shows no mural abnormalities. Color Doppler interrogation demonstrates bilateral ureteral jets. US/US renal BI IMPRESSION: 1. Right renal artery velocities, most pronounced proximally in the range of greater than 60% analysis. 2. No hemodynamically significant stenosis in the left renal artery.
--- NOTE | 2020-05-21 | US_ITS ---
EXAMINATION: US RETROPERITONEAL LIMITED (RENAL ONLY), RENAL DOPPLER CLINICAL INFORMATION: Resistant hypertension. COMPARISON: None TECHNIQUE: Multiple 2D grayscale and duplex Doppler ultrasound images of the renal arteries were obtained. FINDINGS: Clinical History: Refractory hypertension, rule out renal artery stenosis. The right kidney measures 11.2 cm. There is no hydronephrosis or nephrolithiasis. Arterial velocities are as follows: Intrarenal: Resistive index, 0.7 Right renal artery: Hilum: 100 cm/sec Mid:124 cm/sec Proximal: 211 cm/sec The right renal vein demonstrated normal venous waveforms. RAR: 4.1 The left kidney measures 11.3 cm. There is no hydronephrosis or nephrolithiasis. Intrarenal: Resistive index 0.7 Left renal artery: Hilum: 140 cm/sec Mid: 92 cm/sec Proximal: 133 cm/sec The left renal vein demonstrated normal venous waveforms. RAR: 2.7 Aortic velocities measure up to 52 cm/sec. The abdominal aorta shows atherosclerosis and ectasia up to 4.2 cm distally. Renal to aortic velocity ratios are within the range of normal. Normal low resistance arterial wave forms are noted in both renal arteries. The visualized inferior vena cava is unremarkable. The urinary bladder shows no mural abnormalities. Color Doppler interrogation demonstrates bilateral ureteral jets. US/US renal doppler IMPRESSION: 1. Right renal artery velocities, most pronounced proximally in the range of greater than 60% analysis. 2. No hemodynamically significant stenosis in the left renal artery.
[2020-05-21] MEDS: Acetaminophen 325 MG TABLET 650 MG PO ×3 (05:30→23:49)
[2020-05-21] MEDS: Heparin Sodium,Porcine 5,000 UNIT/ML VIAL 5000 UNIT SUBCUT ×2 (08:42→20:39)
[2020-05-21] MEDS: Nicotine 21 MG PATCH.TD24 TRANSDERMA (08:43)
[2020-05-21] MEDS: Docusate Sodium 100 MG CAPSULE PO ×2 (08:43→20:39)
[2020-05-21] MEDS: Aspirin Enteric Coated 81 MG TABLET.DR PO (08:43)
[2020-05-21] MEDS: Atorvastatin Calcium 80 MG TABLET PO (08:43)
[2020-05-21] MEDS: dilTIAZem HCL CD 240 MG CAP.ER.DEG PO (08:46)
[2020-05-21] MEDS: Spironolactone 25 MG TABLET 50 MG PO (08:46)
[2020-05-21] MEDS: dilTIAZem HCL CD 120 MG CAP.ER.DEG PO (08:47)
--- NOTE | 2020-05-21 08:54 | MHC.CM.PN ---
PT indicated that Patient may benefit from home OT r/t visual field deficit. Multiple [facility]NA referrals made, in an attempt to locate a VNA that services [facility]. CM will continue to follow for dc planning and possible need to adjust the dc plan.
[2020-05-21] MEDS: hydrALAZINE HCl 25 MG TABLET PO (11:35)
--- NOTE | 2020-05-21 12:42 | PM.PNCARD ---
Subjective Subjective Date of Service: 05/21/20 Interval history: His blood pressure still runs quite high. He states that he felt okay study but today he feels somewhat oozy. No chest pain or other cardiac symptoms. Review of Systems Review of Systems Yes all other systems are reviewed and are negative and Unobtainable due to mental status Denies dizziness Cardiovascular: Reports as per HPI, Reports no additional cardiovascular complaints, Denies chest pain, Denies chest pain at rest, Denies syncope, Denies rapid heart rate, Denies irregular heart rhythm, Denies lightheadedness, Denies radiating jaw, neck or arm pain, Denies dyspnea and Denies dyspnea on exertion Respiratory: Denies dyspnea and Denies dyspnea on exertion Reports system reviewed and no additional complaints, except as documented, Denies dizziness, Denies syncope and Denies Sensory deficit (Neuro) Physical Exam Vital Signs: Last Vital Signs Temp 98.5 F 05/21/20 08:00 Pulse 64 05/21/20 11:35 Resp 20 05/21/20 08:00 BP 200/90 H 05/21/20 11:35 Pulse Ox 98 05/21/20 08:00 Body Mass Index 27.3 Const General: cooperative, comfortable and no acute distress Orientation/consciousness: patient oriented x3 HENOK Other: Unremarkable Neck Neck: Yes normal visual inspection Chest Chest palpation & inspection: normal inspection of the chest Resp Auscultation: clear to auscultation bilaterally, no crackles and no wheezes Cardio Jugular venous distension: no JVD Palpation: normal PMI Heart sounds: S1 normal heart sound present, S2 normal heart sound present, no gallops, no murmurs and no rubs GI Palpation (GI): Soft to palpation Back/Spine/Pelvis Other: unremarkable Skin General skin exam: no rashes or lesions noted Neuro General: patient oriented x3 Sensory Exam: No Sensory deficit (Neuro) Extrem General: Yes no clubbing, cyanosis or edema Psych Mental Status: mental status grossly normal Results Labs and Meds Result diagrams: 05/19/20 06:02 05/19/20 06:02 Progress Note: A&P Assessment and plan (1) Stroke: Status: Acute (2) Uncontrolled hypertension: Status: Acute (3) Atrial arrhythmia: Status: Acute Assessment and Plan: His blood pressure unfortunately continues to be quite high. Most likely he has long-standing uncontrolled hypertension. Questionable compliance at home. He was started on diltiazem for atrial fibrillation but because of diminished LVEF we can switch this over to Coreg. Otherwise he is on lisinopril as well which seems appropriate. Possibly use divided doses which patient would rather prefer. Otherwise he is not comfortable taking spironolactone and hence we can use a home diuretics. Will likely need additional medications like hydralazine as well as the blood pressure is running quite high. If any mental status changes, he will need a repeat CT or MRI of the brain. I spent several minutes explaining the rationale for hypertension management and giacomo is taking time but I am not clear if he actually understands the implications from this. With regard to anticoagulation, as discussed earlier, ER strips of AFib are not available. In the EKG itself the 2nd half of the EKG shows sinus rhythm with PACs but the 1st half has a rapid rate and could be atrial fibrillation but could also be atrial tachycardia. If the lesion is felt to be embolic, then may do anticoagulation as he clearly has multiple risk factors to actually get atrial fibrillation. Fall Risk Details Current Medications: Current Medications Generic Name Dose Route Start Last Admin Trade Name Freq PRN Reason Stop Dose Admin Acetaminophen 650 mg 05/18/20 19:50 05/21/20 05:30 Acetaminophen 325 Mg Tablet PO 650 mg Q6H PRN Administration Pain, Mild (Pain Scale 1-3) Aspirin 81 mg 05/19/20 09:00 05/21/20 08:43 Aspirin Enteric Coated 81 Mg Tablet. PO 81 mg DAILY NURIS Administration Atorvastatin Calcium 80 mg 05/19/20 09:00 05/21/20 08:43 Atorvastatin Calcium 80 Mg Tablet PO 80 mg DAILY NURIS Administration Diltiazem HCl 120 mg 05/21/20 09:00 05/21/20 08:47 Diltiazem Hcl Cd 120 Mg Cap.Er.Deg PO 120 mg DAILY NURIS Administration Protocol Diltiazem HCl 240 mg 05/21/20 09:00 05/21/20 08:46 Diltiazem Hcl Cd 240 Mg Cap.Er.Deg PO 240 mg DAILY NURIS Administration Protocol Docusate Sodium 100 mg 05/20/20 21:00 05/21/20 08:43 Docusate Sodium 100 Mg Capsule PO 100 mg BID NURIS Administration Heparin Sodium (Porcine) 5,000 unit 05/18/20 20:00 05/21/20 08:42 Heparin Sodium,Porcine 5,000 Unit/Ml Vial SUBCUT 5,000 unit Q12H NURIS Administration Lisinopril 40 mg 05/21/20 09:00 05/21/20 05:40 Lisinopril 40 Mg Tablet PO 40 mg DAILY NURIS Administration Protocol Nicotine 21 mg 05/19/20 09:00 05/21/20 08:43 Nicotine 21 Mg Patch.Td24 TRANSDERMA 21 mg DAILY NURIS Administration Nicotine Polacrilex 2 mg 05/18/20 19:52 05/19/20 06:35 Nicotine Polacrilex 2 Mg Gum BUCCAL 2 mg Q2H PRN Administration withdrawl Ondansetron HCl 4 mg 05/18/20 19:50 Ondansetron Hcl 4 Mg/2 Ml Vial IVPUSH Q8H PRN Nausea and Vomiting Pharmacy Consult 1 each 05/18/20 16:12 Consult Rx Perform Med Rec MISCELLANE ONCE PRN Consult order Spironolactone 50 mg 05/21/20 09:00 05/21/20 08:46 Spironolactone 25 Mg Tablet PO 50 mg DAILY NURIS Administration Protocol Time Spent With Patient Time: Total time spent is greater than 50% in coordination of care (as documented) at patient's floor/unit and/or counseling patient: Time with patient: less than 15 minutes
[2020-05-21] MEDS: LORazepam 0.5 MG TABLET PO (13:24)
--- NOTE | 2020-05-21 13:32 | PC.NURSE ---
Patients blood pressure elevated this morning at 0846 BP 190/90 HR 61, blood pressure medication given, 1013 BP 198/100 HR 60, MD aware. Cardiology consult placed. 1104 Bp 218/96 HR 61. 1135 BP 200/90 HR 64 Hydralazine ordered and given. BP at 1300 198/98 and HR 66, repeat head CT ordered.
--- NOTE | 2020-05-21 15:17 | HO.PM.IMPN ---
Subjective Subjective Date of Service: 05/22/20 Interval History: Being followed for acute CVA, persistent right hemianopsia, no new deficits patient headache and confusion is better, patient just returned from MRI study blood pressure remains significantly elevated overnight requiring multiple dosages of antihypertensive medications. Review of Systems General headache resolved,no dizziness, no fever chills, no tremors. CVS no chest pain, no palpitation. Respiratory no cough, no shortness of breath Gastrointestinal no nausea, no vomiting, no abdominal pain Physical Exam Vital Signs: Vital Signs: Last Vital Signs Temp 98.5 F 05/21/20 08:00 Pulse 66 05/21/20 13:26 Resp 20 05/21/20 08:00 BP 198/98 H 05/21/20 13:26 Pulse Ox 98 05/21/20 08:00 Body Mass Index 27.3 General awake alert no distress Neck supple no JVD. CVS regular rate rhythm, Respiratory lungs clear to auscultation, no respiratory distress, no wheeze, no rhonchi. Gastrointestinal abdomen soft, nontender, bowel sounds audible Extremities no clubbing cyanosis or edema. Neuro speech clear, right hemianopsia. Skin no rash Objective Data Current Medications Generic Name Dose Route Start Last Admin Trade Name Freq PRN Reason Stop Dose Admin Acetaminophen 650 mg 05/18/20 19:50 05/21/20 13:04 Acetaminophen 325 Mg Tablet PO 650 mg Q6H PRN Administration Pain, Mild (Pain Scale 1-3) Aspirin 81 mg 05/19/20 09:00 05/21/20 08:43 Aspirin Enteric Coated 81 Mg Tablet. PO 81 mg DAILY NURIS Administration Atorvastatin Calcium 80 mg 05/19/20 09:00 05/21/20 08:43 Atorvastatin Calcium 80 Mg Tablet PO 80 mg DAILY NURIS Administration Diltiazem HCl 120 mg 05/21/20 09:00 05/21/20 08:47 Diltiazem Hcl Cd 120 Mg Cap.Er.Deg PO 120 mg DAILY NURIS Administration Protocol Diltiazem HCl 240 mg 05/21/20 09:00 05/21/20 08:46 Diltiazem Hcl Cd 240 Mg Cap.Er.Deg PO 240 mg DAILY NURIS Administration Protocol Docusate Sodium 100 mg 05/20/20 21:00 05/21/20 08:43 Docusate Sodium 100 Mg Capsule PO 100 mg BID NURIS Administration Heparin Sodium (Porcine) 5,000 unit 05/18/20 20:00 05/21/20 08:42 Heparin Sodium,Porcine 5,000 Unit/Ml Vial SUBCUT 5,000 unit Q12H NURIS Administration Hydralazine HCl 50 mg 05/21/20 15:15 Hydralazine Hcl 25 Mg Tablet PO TID [facility] Protocol Lisinopril 40 mg 05/21/20 09:00 05/21/20 05:40 Lisinopril 40 Mg Tablet PO 40 mg DAILY NURIS Administration Protocol Nicotine 21 mg 05/19/20 09:00 05/21/20 08:43 Nicotine 21 Mg Patch.Td24 TRANSDERMA 21 mg DAILY NURIS Administration Nicotine Polacrilex 2 mg 05/18/20 19:52 05/19/20 06:35 Nicotine Polacrilex 2 Mg Gum BUCCAL 2 mg Q2H PRN Administration withdrawl Ondansetron HCl 4 mg 05/18/20 19:50 Ondansetron Hcl 4 Mg/2 Ml Vial IVPUSH Q8H PRN Nausea and Vomiting Pharmacy Consult 1 each 05/18/20 16:12 Consult Rx Perform Med Rec MISCELLANE ONCE PRN Consult order Spironolactone 50 mg 05/21/20 09:00 05/21/20 08:46 Spironolactone 25 Mg Tablet PO 50 mg DAILY NURIS Administration Protocol Labs CBC & Chem 7: 05/19/20 06:02 05/19/20 06:02 Microbiology Microbiology Results: Microbiology 05/19/20 00:10 Blood - Venous Blood Culture - Preliminary No growth after 48 hours. 05/19/20 00:10 Blood - Venous Blood Culture - Preliminary No growth after 48 hours. Assessment and Plan (1) Stroke: Status: Acute (2) Uncontrolled hypertension: Status: Acute (3) Atrial arrhythmia: Status: Acute Assessment and Plan: 65-year-old man admitted with acute stroke. Also found to have new onset of atrial fibrillation with rapid ventricular response. left posterior cerebral artery infarction Confusion resolved, gets intermittent headaches, no new deficit, persistent right hemianopsia MRI showed acute infarction involving vascular territory of left posterior cerebral artery and scattered chronic small-vessel ischemic changes involving periventricular white matter and latha there is also few small chronic microhemorrhages within the latha suggestive of underlying hypertensive angiopathy Carotids shows no obstruction Will aim for better blood pressure control, continue aspirin , Lipitor echocardiogram showed EF 40, mild diastolic dysfunction mildly increased left ventricular wall thickness. Patient seen by Physical therapy and they are recommending home with occupational therapy Case discussed with Dr. Oropeza and Dr. Paulino, neuro recommend aspirin and Plavix for 1 month and then aspirin and also recommend outpatient monitoring for AFib. called patient Eli mann [phone] and updated her about patient's current condition. Question Atrial fibrillation Case discussed with Cardiology it seems that patient had atrial tachycardia with rapid ventricular response. Treated with IV Cardizem in the ER. Converted to sinus rhythm. Tele monitor shows persistent normal sinus rhythm on Cardizem CD 360 mg daily TSH, 2.7 and normal Mag. Since EF is low with persistent hypertension will change to Coreg 12.5 b.i.d. and DC Cardizem History of abdominal aortic aneurysm Patient seen by Dr. Rene, he does not feel eccentric thrombus in abdominal aneurysm is source of stroke, he recommend aspirin and Plavix. Uncontrolled Hypertension. Patient continued to have persistent elevated blood pressure, despite being on Cardizem to 360 mg daily, lisinopril 40 mg daily, and Aldactone 50 mg daily, Patient frustrated about persistent elevated blood pressure, case discussed with Nephrology and Cardiology patient has been noncompliant with his blood pressure medications since BP is chronically elevated he was last seen by Nephro in 2018, due to persistently elevated blood pressure will add hydralazine 50 mg t.i.d., change lisinopril to 20 mg b.i.d. and DC Aldactone and place him on Spironolactone/hydrochlorothiazide combination 25/25 Due to persistently elevated blood pressure and feeling oozy a repeat CT head was obtained that showed no acute abnormality. Smoker. Continue Nicotine replacement therapy. Strongly recommend to abstain from alcohol. History of daily alcohol consumption with no history of withdrawal seizure or delirium tremens , no tremors noted , will give as needed Ativan for anxiety/ tremors and follow clinical course. DVT prophylaxis with heparin
[2020-05-21] MEDS: hydrALAZINE HCl 50 MG TABLET PO ×2 (15:28→20:39)
--- NOTE | 2020-05-21 18:36 | PC.NURSE ---
b/p improved , 170's systolically. pt still c/o mild headache, endorses no dizziness, no chest discomfort. gait unsteady. renal u/s completed. a & o x 3. handgrasps and foot strength equal strong bilaterally. no difficulty swallowing, gag reflex intact.
[2020-05-22] VITALS (12 sets, daily range): BP systolic 140–192; BP diastolic 68–102; PULSE 54–70; RESP 14–18; TEMP 36.1–36.4; O2SAT 97–99
[2020-05-22] MEDS: traMADoL HCL 50 MG TABLET PO (05:36)
[2020-05-22] MEDS: hydrALAZINE HCl 20 MG/ML VIAL 5 MG IVPUSH (05:38)
--- NOTE | 2020-05-22 07:22 | PC.NURSE ---
4 am pt c/o coming back h/a and bp is still high. ordered ultram and iv hydralazine pt more comfortable now and bp is still high 186/86
[2020-05-22] MEDS: hydrALAZINE HCl 50 MG TABLET PO ×3 (09:02→20:57)
[2020-05-22] MEDS: Heparin Sodium,Porcine 5,000 UNIT/ML VIAL 5000 UNIT SUBCUT ×2 (09:02→20:53)
[2020-05-22] MEDS: Atorvastatin Calcium 80 MG TABLET PO (09:02)
[2020-05-22] MEDS: Aspirin Enteric Coated 81 MG TABLET.DR PO (09:02)
[2020-05-22] MEDS: Docusate Sodium 100 MG CAPSULE PO ×2 (09:02→20:59)
[2020-05-22] MEDS: carvediloL 12.5 MG TABLET PO ×2 (09:02→20:58)
[2020-05-22] MEDS: Nicotine 21 MG PATCH.TD24 TRANSDERMA (09:03)
[2020-05-22] MEDS: Acetaminophen 325 MG TABLET 650 MG PO (10:54)
--- NOTE | 2020-05-22 10:59 | P.CONNP_ITS ---
History of Present Illness Reason for Consult Consult date: 05/22/20 Reason for consult: htn Chief Complaint Chief complaint: Stroke History of Present Illness Narrative: Full Renal/HTN consult to follow Severe HTN w CVA Doppler raises ques JOE Needs w/u to r/o other causes of severe HTN BP meds being adjsuted by card BP for me now 142/68 LUE and similar in RUE I woill review prior w/u for secondary causes of HTN and schedule additional test to complete the eval of 2ry causes of HTN [facility] Past Medical History Medical History (Updated 05/19/20 @ 16:27 by Farhan Paulino MD) Abdominal aortic aneurysm Chronic constipation CVA (cerebral vascular accident) Gout Hypertension Family History Family History (Updated 05/18/20 @ 19:42 by Meg Jackson NP) Father Colon cancer Surgical History Surgical History History of appendectomy Social History Social History (Updated 05/18/20 @ 19:43 by Meg Jackson NP) Household Members: Spouse Housing: House Do you presently have visiting nurse or other home services: No Alcohol intake: current Alcohol intake frequency: 0-2 drinks per day Smoking Status: Current every day smoker Tobacco Type: Cigar Packs Per Day: 1 Cigarettes Per Day: 20 Smoked in Last 30 Days: Yes Patient Interested in Nicotine Replacement: No Patient Given Instructions on How to Stop Smoking: No Second Hand Smoke Exposure: No Use of substances other than those prescribed or required for medical reasons: No Substance Use Type: Marijuana Substance Use Frequency: Daily Last Used Substance: Days (ago) Currently Displaying Signs/Symptoms of Drug Intoxication Withdrawal: No Any prior treatment program specific to substance use: No Have you been hit, kicked, punched, or otherwise hurt by someone within the past year? If so, by whom?: No Do you feel safe in your current relationship?: Yes Is there a partner from a previous relationship who is making you feel unsafe now?: No Are you made to feel afraid or neglected: No Advance Directives: No Advance Directives Information Provided: Yes Advance Directives on File: No Do you have thoughts of harming others: None Do you have a plan to hurt others: No Plan Recently lost weight without trying: No service: No Current occupational status: retired Meds Allergies Allergy/AdvReac Type Severity Reaction Status Date / Time No Known Allergies Allergy Verified 03/22/20 14:49 [No Known Allergies*] Home Medications Medication Instructions Recorded Confirmed Type allopurinol 300 mg tablet 150 mg PO DAILY 02/23/20 05/18/20 History Physical Exam Vital Signs: Last Vital Signs Temp 97.0 F 05/22/20 08:00 Pulse 64 05/22/20 09:02 Resp 18 05/22/20 08:00 BP 158/80 H 05/22/20 10:30 Pulse Ox 97 05/22/20 08:00 Body Mass Index 27.3 Results Lab Results Result Diagrams: 05/19/20 06:02 05/19/20 06:02
--- NOTE | 2020-05-22 11:52 | P.PNCA_ITS ---
Subjective Subjective Date of Service: 05/22/20 Interval history: Patient has a headache but otherwise feels okay. Review of Systems Review of Systems Yes all other systems are reviewed and are negative and Unobtainable due to mental status Denies dizziness Cardiovascular: Reports as per HPI, Reports no additional cardiovascular complaints, Denies acrocyanosis, Denies cool extremities, Denies painful fingertips, Denies chest pain, Denies chest pain at rest, Denies diaphoresis, Denies syncope, Denies rapid heart rate, Denies irregular heart rhythm, Denies claudication, Denies leg edema, Denies lightheadedness, Denies radiating jaw, neck or arm pain, Denies palpitations, Denies dyspnea and Denies dyspnea on exertion Respiratory: Denies dyspnea and Denies dyspnea on exertion Reports system reviewed and no additional complaints, except as documented, Denies dizziness, Denies syncope and Denies Sensory deficit (Neuro) Endocrine: Denies palpitations Physical Exam Vital Signs: Last Vital Signs Temp 97.0 F 05/22/20 08:00 Pulse 64 05/22/20 09:02 Resp 18 05/22/20 08:00 BP 158/80 H 05/22/20 10:30 Pulse Ox 97 05/22/20 08:00 Body Mass Index 27.3 Const General: cooperative, comfortable and no acute distress Orientation/consciousness: patient oriented x3 HENMT Other: Unremarkable Neck Neck: Yes normal visual inspection Chest Chest palpation & inspection: normal inspection of the chest Resp Auscultation: clear to auscultation bilaterally, no crackles and no wheezes Cardio Jugular venous distension: no JVD Palpation: normal PMI Heart sounds: S1 normal heart sound present, S2 normal heart sound present, no gallops, no murmurs and no rubs GI Palpation (GI): Soft to palpation Back/Spine/Pelvis Other: unremarkable Skin General skin exam: no rashes or lesions noted Neuro General: patient oriented x3 Sensory Exam: No Sensory deficit (Neuro) Extrem General: Yes no clubbing, cyanosis or edema Psych Mental Status: mental status grossly normal Results Labs and Meds Result diagrams: 05/19/20 06:02 05/19/20 06:02 Imaging Radiologist's impression: Impressions Head CT 05/21/20 00:00 IMPRESSION: No acute intracranial process seen. Old left mesial occipital lobe infarct without hemorrhagic conversion. No new acute infarct seen. There is lacunar infarct anterior left external capsule. Renal Ultrasound 05/21/20 00:00 IMPRESSION: 1. Right renal artery velocities, most pronounced proximally in the range of greater than 60% analysis. 2. No hemodynamically significant stenosis in the left renal artery. Renal Ultrasound 05/21/20 00:00 IMPRESSION: 1. Right renal artery velocities, most pronounced proximally in the range of greater than 60% analysis. 2. No hemodynamically significant stenosis in the left renal artery. Progress Note: A&P Assessment and plan (1) Stroke: Status: Acute (2) Uncontrolled hypertension: Status: Acute (3) PAF (paroxysmal atrial fibrillation): Status: Acute Assessment and Plan: Today's blood pressure is better than before but still on the higher side. Current regimen includes carvedilol, lisinopril, hydralazine. These can be uptitrated as guided by blood pressure. He has slight headache that could be from high blood pressure as well as a stroke. Otherwise with regard to the atrial fibrillation, he was on a Cardizem drip upon arrival to the ER but in the [facility], he has been in sinus rhythm. We can plan on anticoagulation 1-2 weeks after the stroke. Fall Risk Details Current Medications: Current Medications Generic Name Dose Route Start Last Admin Trade Name Freq PRN Reason Stop Dose Admin Acetaminophen 650 mg 05/18/20 19:50 05/22/20 10:54 Acetaminophen 325 Mg Tablet PO 650 mg Q6H PRN Administration Pain, Mild (Pain Scale 1-3) Aspirin 81 mg 05/19/20 09:00 05/22/20 09:02 Aspirin Enteric Coated 81 Mg Tablet. PO 81 mg DAILY NURIS Administration Atorvastatin Calcium 80 mg 05/19/20 09:00 05/22/20 09:02 Atorvastatin Calcium 80 Mg Tablet PO 80 mg DAILY NURIS Administration Carvedilol 12.5 mg 05/22/20 09:00 05/22/20 09:02 Carvedilol 12.5 Mg Tablet PO 12.5 mg BID NURIS Administration Protocol Docusate Sodium 100 mg 05/20/20 21:00 05/22/20 09:02 Docusate Sodium 100 Mg Capsule PO 100 mg BID NURIS Administration Heparin Sodium (Porcine) 5,000 unit 05/18/20 20:00 05/22/20 09:02 Heparin Sodium,Porcine 5,000 Unit/Ml Vial SUBCUT 5,000 unit Q12H NURIS Administration Hydralazine HCl 50 mg 05/21/20 15:30 05/22/20 09:02 Hydralazine Hcl 50 Mg Tablet PO 50 mg TID NURIS Administration Protocol Lisinopril 20 mg 05/22/20 09:00 05/22/20 09:02 Lisinopril 20 Mg Tablet PO 20 mg BID NURIS Administration Protocol Nicotine 21 mg 05/19/20 09:00 05/22/20 09:03 Nicotine 21 Mg Patch.Td24 TRANSDERMA 21 mg DAILY NURIS Administration Nicotine Polacrilex 2 mg 05/18/20 19:52 05/19/20 06:35 Nicotine Polacrilex 2 Mg Gum BUCCAL 2 mg Q2H PRN Administration withdrawl Ondansetron HCl 4 mg 05/18/20 19:50 Ondansetron Hcl 4 Mg/2 Ml Vial IVPUSH Q8H PRN Nausea and Vomiting Pharmacy Consult 1 each 05/18/20 16:12 Consult Rx Perform Med Rec MISCELLANE ONCE PRN Consult order Time Spent With Patient Time: Total time spent is greater than 50% in coordination of care (as documented) at patient's floor/unit and/or counseling patient: Time with patient: less than 15 minutes
--- NOTE | 2020-05-22 12:28 | P.CONNP_ITS ---
History of Present Illness Reason for Consult Consult date: 05/22/20 Chief Complaint Chief complaint: Stroke History of Present Illness Narrative: 65 y/o wM adm 05/18 with CVA and severe HTN and ask to help in eval of HTN and ques of 2ry cause for HTN. PMH signif for Abdominal aortic aneurysm Chronic constipation CVA (cerebral vascular accident) Gout Hypertension He states he has had HTN > 20 yrs but has ot been on meds routinely d/t $$ issues. BP during hosp course has been markeldy elevated SBP 190-200 at times. Had doppler of renal with ques signif L JOE ( > 60%) He is c/o JACOME on/off and has signif JACOME this am. He has been seen by neuro, vascular and getting ongoing close monitoring by card who have been adjusting his BP meds. He denies palp, tremors or flushing epsidoes. Review of Systems Review of Systems General headache resolved,no dizziness, no fever chills, no tremors. CVS no chest pain, no palpitation. Respiratory no cough, no shortness of breath Gastrointestinal no nausea, no vomiting, no abdominal pain Yes all other systems are reviewed and are negative and Unobtainable due to mental status Constitutional: Reports no additional constitutional complaints Eyes: Reports no additional eye complaints Denies dizziness Cardiovascular: Reports as per HPI, Reports no additional cardiovascular compla ints, Denies acrocyanosis, Denies cool extremities, Denies painful fingertips, Denies chest pain, Denies chest pain at rest, Denies diaphoresis, Denies syncope, Denies rapid heart rate, Denies irregular heart rhythm, Denies claudication, Denies leg edema, Denies lightheadedness, Denies radiating jaw, neck or arm pain, Denies palpitations, Denies dyspnea and Denies dyspnea on exertion Respiratory: Reports as per HPI, Denies dyspnea and Denies dyspnea on exertion Gastrointestinal: Reports no additional gastrointestinal complaints Musculoskeletal: Reports no additional musculoskeletal complaints Skin/Breast: Denies rash Reports system reviewed and no additional complaints, except as documented, Denies dizziness, Denies syncope and Denies Sensory deficit (Neuro) Psychiatric: Denies anxiety Endocrine: Denies palpitations PMFSH Past Medical History Medical History (Updated 05/22/20 @ 11:58 by Farhan Paulino MD) Abdominal aortic aneurysm Chronic constipation CVA (cerebral vascular accident) Gout Hypertension Family History Family History (Updated 05/18/20 @ 19:42 by Meg Jackson NP) Father Colon cancer Surgical History Surgical History History of appendectomy Social History Social History (Updated 05/18/20 @ 19:43 by Meg Jackson NP) Household Members: Spouse Housing: House Do you presently have visiting nurse or other home services: No Alcohol intake: current Alcohol intake frequency: 0-2 drinks per day Smoking Status: Current every day smoker Tobacco Type: Cigar Packs Per Day: 1 Cigarettes Per Day: 20 Smoked in Last 30 Days: Yes Patient Interested in Nicotine Replacement: No Patient Given Instructions on How to Stop Smoking: No Second Hand Smoke Exposure: No Use of substances other than those prescribed or required for medical reasons: No Substance Use Type: Marijuana Substance Use Frequency: Daily Last Used Substance: Days (ago) Currently Displaying Signs/Symptoms of Drug Intoxication Withdrawal: No Any prior treatment program specific to substance use: No Have you been hit, kicked, punched, or otherwise hurt by someone within the past year? If so, by whom?: No Do you feel safe in your current relationship?: Yes Is there a partner from a previous relationship who is making you feel unsafe now?: No Are you made to feel afraid or neglected: No Advance Directives: No Advance Directives Information Provided: Yes Advance Directives on File: No Do you have thoughts of harming others: None Do you have a plan to hurt others: No Plan Recently lost weight without trying: No service: No Current occupational status: retired [employer] Allergies Allergy/AdvReac Type Severity Reaction Status Date / Time No Known Allergies Allergy Verified 03/22/20 14:49 [No Known Allergies*] Home Medications Medication Instructions Recorded Confirmed Type allopurinol 300 mg tablet 150 mg PO DAILY 02/23/20 05/18/20 History Physical Exam Vital Signs: Last Vital Signs Temp 97.5 F 05/22/20 12:00 Pulse 59 05/22/20 12:00 Resp 18 05/22/20 12:00 BP 140/68 H 05/22/20 12:00 Pulse Ox 97 05/22/20 12:00 Body Mass Index 27.3 Const Other: Ill appearing, weak General: cooperative, comfortable and no acute distress Nutritional Appearance: average body habitus Orientation/consciousness: oriented to person and patient oriented x3 Limitations: altered mental status HENNH Other: Unremarkable Head: Yes normal to inspection Ears: external ears normal General nose exam: Normal external nose present Mouth: Normal oral and palatal mucosa present and oropharynx normal Throat: Yes posterior oropharynx normal Eyes General: appearance normal, both eyes and all related structures Neck Other: supple Neck: Yes normal visual inspection Chest Chest palpation & inspection: normal inspection of the chest Resp Auscultation: clear to auscultation bilaterally, no crackles and no wheezes Cardio Other: Ill appearing, weak Jugular venous distension: no JVD Palpation: normal PMI Rate: regular rate Rhythm: regular rhythm Heart sounds: S1 normal heart sound present, S2 normal heart sound present, no gallops, no murmurs and no rubs GI Inspection: Yes normal to inspection Palpation (GI): Soft to palpation, nontender and No hepatosplenomegaly present Auscultation: normal bowel sounds General: Yes no CVA tenderness Back/Spine/Pelvis Other: unremarkable Back: no CVA tenderness Skin General skin exam: no rashes or lesions noted Neuro General: oriented to person and patient oriented x3 Cranial nerves: Yes CN's II-XII intact bilaterally Motor exam (neuro): 5/5 motor strength present throughout Sensory Exam: No Sensory deficit (Neuro) Plantar Reflex Responses: downgoing: bilateral, upgoing (positive Babinski): bilateral and equivocal: bilateral Doll's-Eye Reflex: Present Extrem General: Yes normal to inspection and Yes no clubbing, cyanosis or edema Psych Appearance: grossly normal Mental Status: mental status grossly normal Results Lab Results Result Diagrams: 05/19/20 06:02 05/19/20 06:02 Assessment and Plan (1) Stroke: Qualifiers: CVA mechanism: embolism Laterality of affected vessel: unspecified Precerebral and cerebral artery: posterior cerebral artery Qualified Code(s): I63.439 - Cerebral infarction due to embolism of unspecified posterior cerebral artery Status: Acute (2) Uncontrolled hypertension: Status: Acute (3) PAF (paroxysmal atrial fibrillation): Status: Acute 65 y/o sever HTN with CVA and ques of 2ry cause for HTN REC: r/o pheo, primary hyperaldo and JOE..note in regards to JOE he will need further eval including a MRA or CTA at somepoint and this can be done at same tinme the AAA is being evaluated; card is adjsuting the meds to optimize BP control; avoid NSAIDs
--- NOTE | 2020-05-22 15:25 | HO.PM.IMPN ---
Subjective Subjective Date of Service: 05/22/20 Interval History: Patient much relax today, complaining of left frontal headache, persistent right hemianopsia, no new symptoms of dizziness weakness, tele monitor showed normal sinus rhythm patient denies palpitations no chest pain, tolerating diet no nausea vomiting no shortness of breath blood pressure remains in 180-190 range systolic. Review of Systems General frontal headache,no dizziness, no fever chills, no tremors. CVS no chest pain, no palpitation. Respiratory no cough, no shortness of breath Gastrointestinal no nausea, no vomiting, no abdominal pain Physical Exam Vital Signs: Vital Signs: Last Vital Signs Temp 97.5 F 05/22/20 12:00 Pulse 59 05/22/20 12:00 Resp 18 05/22/20 12:00 BP 140/68 H 05/22/20 12:00 Pulse Ox 97 05/22/20 12:00 Body Mass Index 27.3 General awake alert no distress Neck supple no JVD. CVS regular rate rhythm, Respiratory lungs clear to auscultation, no respiratory distress, no wheeze, no rhonchi. Gastrointestinal abdomen soft, nontender, bowel sounds audible Extremities no clubbing cyanosis or edema. Neuro speech clear, right hemianopsia. Skin no rash Objective Data Current Medications Generic Name Dose Route Start Last Admin Trade Name Freq PRN Reason Stop Dose Admin Acetaminophen 650 mg 05/18/20 19:50 05/22/20 10:54 Acetaminophen 325 Mg Tablet PO 650 mg Q6H PRN Administration Pain, Mild (Pain Scale 1-3) Aspirin 81 mg 05/19/20 09:00 05/22/20 09:02 Aspirin Enteric Coated 81 Mg Tablet. PO 81 mg DAILY NURIS Administration Atorvastatin Calcium 80 mg 05/19/20 09:00 05/22/20 09:02 Atorvastatin Calcium 80 Mg Tablet PO 80 mg DAILY NURIS Administration Carvedilol 12.5 mg 05/22/20 09:00 05/22/20 09:02 Carvedilol 12.5 Mg Tablet PO 12.5 mg BID NURIS Administration Protocol Docusate Sodium 100 mg 05/20/20 21:00 05/22/20 09:02 Docusate Sodium 100 Mg Capsule PO 100 mg BID NURIS Administration Heparin Sodium (Porcine) 5,000 unit 05/18/20 20:00 05/22/20 09:02 Heparin Sodium,Porcine 5,000 Unit/Ml Vial SUBCUT 5,000 unit Q12H NURIS Administration Hydralazine HCl 50 mg 05/21/20 15:30 05/22/20 09:02 Hydralazine Hcl 50 Mg Tablet PO 50 mg TID NURIS Administration Protocol Lisinopril 20 mg 05/22/20 09:00 05/22/20 09:02 Lisinopril 20 Mg Tablet PO 20 mg BID NURIS Administration Protocol Nicotine 21 mg 05/19/20 09:00 05/22/20 09:03 Nicotine 21 Mg Patch.Td24 TRANSDERMA 21 mg DAILY NURIS Administration Nicotine Polacrilex 2 mg 05/18/20 19:52 05/19/20 06:35 Nicotine Polacrilex 2 Mg Gum BUCCAL 2 mg Q2H PRN Administration withdrawl Ondansetron HCl 4 mg 05/18/20 19:50 Ondansetron Hcl 4 Mg/2 Ml Vial IVPUSH Q8H PRN Nausea and Vomiting Pharmacy Consult 1 each 05/18/20 16:12 Consult Rx Perform Med Rec MISCELLANE ONCE PRN Consult order Labs CBC & Chem 7: 05/19/20 06:02 05/19/20 06:02 Microbiology Microbiology Results: Microbiology 05/19/20 00:10 Blood - Venous Blood Culture - Preliminary No growth after 48 hours. 05/19/20 00:10 Blood - Venous Blood Culture - Preliminary No growth after 48 hours. Assessment and Plan (1) Stroke: Status: Acute (2) Uncontrolled hypertension: Status: Acute (3) Atrial arrhythmia: Status: Acute Assessment and Plan: 65-year-old man admitted with acute stroke. Also found to have new onset of atrial fibrillation with rapid ventricular response. left posterior cerebral artery infarction Confusion resolved, persistent headache, no new deficit, persistent right hemianopsia MRI showed acute infarction involving vascular territory of left posterior cerebral artery and scattered chronic small-vessel ischemic changes involving periventricular white matter and latha there is also few small chronic microhemorrhages within the latha suggestive of underlying hypertensive angiopathy Carotids shows no obstruction Repeat CT head 11/28/2021 showed no new abnormality continue aspirin , Lipitor echocardiogram showed EF 40, mild diastolic dysfunction mildly increased left ventricular wall thickness. Patient seen by Physical therapy and they are recommending home with occupational therapy Patient blood pressure better controlled, patient will be placed on anticoagulation after 1-2 weeks called patient Eli mann [phone] and updated her about patient's current condition. Question Atrial fibrillation Patient remains in normal sinus rhythm, tele monitor showed no arrhythmia, patient placed on Coreg 12.5 mg b.i.d. and Cardizem discontinued due to low EF TSH, 2.7 and normal Mag. Case discussed with Cardiology and they recommend anticoagulation starting in next 1-2 weeks History of abdominal aortic aneurysm Patient seen by Dr. Rene, he does not feel eccentric thrombus in abdominal aneurysm is source of stroke, he recommend aspirin and Plavix. Uncontrolled Hypertension. Patient blood pressure better controlled this morning on current medications including Coreg 12.5 b.i.d., hydralazine 50 t.i.d., lisinopril 20 b.i.d., if noted to have elevated blood pressure will change hydralazine to 50 mg q.i.d. Smoker. Continue Nicotine replacement therapy. Strongly recommend to abstain from alcohol. History of daily alcohol consumption with no history of withdrawal seizure or delirium tremens , no tremors noted , will give as needed Ativan for anxiety/ tremors and follow clinical course. DVT prophylaxis with heparin
--- NOTE | 2020-05-22 18:27 | PC.NURSE ---
aware of bp, no new orders
[2020-05-23] VITALS (13 sets, daily range): BP systolic 148–201; BP diastolic 72–100; PULSE 70–82; RESP 16–20; TEMP 36.3–37.3; O2SAT 97–98
--- NOTE | 2020-05-23 | CT_ITS ---
EXAMINATION: CT ANGIOGRAM ABDOMEN AND PELVIS CLINICAL INFORMATION: Rule out renal artery stenosis. COMPARISON: None TECHNIQUE: Multiple axial images were obtained through the abdomen and pelvis following the administration of 100 mL of Omnipaque 350 intravenous contrast. Images were reviewed on a dedicated 3-D workstation. This CT examination was performed using dose optimization techniques as appropriate, variously including the following: *Automated exposure control *Adjustment of mA and/or kV according to patient size (this includes techniques or standardized protocols for targeted exams where dose is matched to indication/reason for exam; i.e. extremities or head) *Use of iterative reconstruction technique DLP: 422 mGy-cm FINDINGS: There is atherosclerotic and aneurysmally dilated proximal mid and distal abdominal aorta. The proximal abdominal aorta measures 4.1 x 4.5 cm and axial image 19/5. The mid abdominal aorta measures 4.2 x 4.0 cm axial image 47/5 with significant anterior thrombus within. The patent lumen measures 2.7 x 2.5 cm. The distal abdominal aorta just above the bifurcation measures 4.8 x 4.6 cm. There is moderate surrounding thrombus. The patent lumen measures approximately 3.0 x 2.60 cm with likely ulcerating plaque on axial image 60/5. The common iliac arteries are heavily calcified and atherosclerotic but patent. 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 There is mild narrowing of proximal celiac artery the origin appears patent. The superior mesenteric artery is widely patent. There is atherosclerotic plaque at origin of both renal arteries with moderate stenosis left renal artery origin and mild stenosis origin of right renal artery. Both renal arteries are patent and the proximal mid and distal segments. The inferior mesenteric artery is visualized with no flow seen within. There is reconstitution of the mid segment. Visualized liver, spleen and pancreas appear unremarkable. The gallbladder is unremarkable. Bilateral adrenal glands are symmetrical and normal. Previously visualized liver cyst is not seen at this time. Both kidneys are normal size, shape and position. No radiopaque renal calculi, hydronephrosis seen. There is scattered stool and gas seen throughout the colon without significant distention. There is diffuse sigmoid and scattered rest of colon diverticulosis but no diverticulitis seen. Appendix is not visualized with certainty. The abdominal wall appears unremarkable. Imaging through the pelvis reveals enlarged prostate gland with central gland calcifications. CT/CT angio abdomen pelvis IMPRESSION: Diffuse abdominal aortic aneurysm as described above with significant thrombus seen in the distal and moderate thrombus in mid segment. There is moderate to high-grade stenosis left renal artery and mild stenosis of right renal artery. There is mild stenosis proximal celiac artery. The origins of celiac and superior mesenteric artery are patent. Inferior mesenteric artery is visualized but no flow seen at the origin. There is reconstitution of flow in the mid segment from collateral vessels. Diffuse colonic diverticulosis most prominent in the sigmoid colon. No evidence of diverticulitis. Moderate prostate enlargement with central gland calcification.
[2020-05-23] MEDS: hydrALAZINE HCl 50 MG TABLET PO ×2 (02:49→08:01)
[2020-05-23] MEDS: Acetaminophen 325 MG TABLET 650 MG PO (08:01)
[2020-05-23] MEDS: Atorvastatin Calcium 80 MG TABLET PO (08:01)
[2020-05-23] MEDS: carvediloL 12.5 MG TABLET PO ×2 (08:01→20:43)
[2020-05-23] MEDS: Docusate Sodium 100 MG CAPSULE PO ×2 (08:01→20:43)
[2020-05-23] MEDS: Aspirin Enteric Coated 81 MG TABLET.DR PO (08:01)
[2020-05-23] MEDS: Heparin Sodium,Porcine 5,000 UNIT/ML VIAL 5000 UNIT SUBCUT ×2 (08:02→20:44)
[2020-05-23] MEDS: Nicotine 21 MG PATCH.TD24 TRANSDERMA (08:02)
--- NOTE | 2020-05-23 11:13 | P.PNCA_ITS ---
Subjective Subjective Date of Service: 05/23/20 Interval history: Denies any angina or shortness of breath or other cardiac symptoms. Review of Systems Review of Systems Yes all other systems are reviewed and are negative Denies dizziness Cardiovascular: Reports as per HPI, Reports no additional cardiovascular complaints, Denies acrocyanosis, Denies cool extremities, Denies painful fingertips, Denies chest pain, Denies chest pain at rest, Denies diaphoresis, Denies syncope, Denies rapid heart rate, Denies irregular heart rhythm, Denies claudication, Denies leg edema, Denies lightheadedness, Denies radiating jaw, neck or arm pain, Denies palpitations, Denies dyspnea and Denies dyspnea on exertion Respiratory: Denies dyspnea and Denies dyspnea on exertion Reports system reviewed and no additional complaints, except as documented, Denies dizziness, Denies syncope and Denies Sensory deficit (Neuro) Endocrine: Denies palpitations Physical Exam Vital Signs: Last Vital Signs Temp 97.4 F 05/23/20 07:30 Pulse 82 05/23/20 08:01 Resp 20 05/23/20 07:30 BP 148/74 H 05/23/20 10:52 Pulse Ox 97 05/23/20 07:30 Body Mass Index 27.3 Const General: cooperative, comfortable and no acute distress Orientation/consciousness: patient oriented x3 HENMT Other: Unremarkable Neck Neck: Yes normal visual inspection Chest Chest palpation & inspection: normal inspection of the chest Resp Auscultation: clear to auscultation bilaterally, no crackles and no wheezes Cardio Jugular venous distension: no JVD Palpation: normal PMI Heart sounds: S1 normal heart sound present, S2 normal heart sound present, no gallops, no murmurs and no rubs GI Palpation (GI): Soft to palpation Back/Spine/Pelvis Other: unremarkable Skin General skin exam: no rashes or lesions noted Neuro General: patient oriented x3 Sensory Exam: No Sensory deficit (Neuro) Extrem General: Yes no clubbing, cyanosis or edema Psych Mental Status: mental status grossly normal Results Labs and Meds Result diagrams: 05/19/20 06:02 05/19/20 06:02 Progress Note: A&P Assessment and plan (1) Stroke: Status: Acute (2) Uncontrolled hypertension: Status: Acute (3) PAF (paroxysmal atrial fibrillation): Status: Acute Assessment and Plan: Today's blood pressure is better than before -148/74mmHg. But overnight, it was still high. Current regimen includes carvedilol, lisinopril, hydralazine. These can be uptitrated as guided by blood pressure. Otherwise with regard to the atrial fibrillation, he was on a Cardizem drip upon arrival to the ER but in the [facility] [place] he has been in sinus rhythm. We can plan on anticoagulation 1-2 weeks after the stroke. Fall Risk Details Current Medications: Current Medications Generic Name Dose Route Start Last Admin Trade Name Freq PRN Reason Stop Dose Admin Acetaminophen 650 mg 05/18/20 19:50 05/23/20 08:01 Acetaminophen 325 Mg Tablet PO 650 mg Q6H PRN Administration Pain, Mild (Pain Scale 1-3) Aspirin 81 mg 05/19/20 09:00 05/23/20 08:01 Aspirin Enteric Coated 81 Mg Tablet.Dr PO 81 mg DAILY NURIS Administration Atorvastatin Calcium 80 mg 05/19/20 09:00 05/23/20 08:01 Atorvastatin Calcium 80 Mg Tablet PO 80 mg DAILY NURIS Administration Carvedilol 12.5 mg 05/22/20 09:00 05/23/20 08:01 Carvedilol 12.5 Mg Tablet PO 12.5 mg BID NURIS Administration Protocol Docusate Sodium 100 mg 05/20/20 21:00 05/23/20 08:01 Docusate Sodium 100 Mg Capsule PO 100 mg BID NURIS Administration Heparin Sodium (Porcine) 5,000 unit 05/18/20 20:00 05/23/20 08:02 Heparin Sodium,Porcine 5,000 Unit/Ml Vial SUBCUT 5,000 unit Q12H NURIS Administration Hydralazine HCl 50 mg 05/22/20 20:00 05/23/20 08:01 Hydralazine Hcl 50 Mg Tablet PO 50 mg Q6H NURIS Administration Protocol Lisinopril 20 mg 05/22/20 09:00 05/23/20 08:01 Lisinopril 20 Mg Tablet PO 20 mg BID NURIS Administration Protocol Nicotine 21 mg 05/19/20 09:00 05/23/20 08:02 Nicotine 21 Mg Patch.Td24 TRANSDERMA 21 mg DAILY NURIS Administration Nicotine Polacrilex 2 mg 05/18/20 19:52 05/19/20 06:35 Nicotine Polacrilex 2 Mg Gum BUCCAL 2 mg Q2H PRN Administration withdrawl Ondansetron HCl 4 mg 05/18/20 19:50 Ondansetron Hcl 4 Mg/2 Ml Vial IVPUSH Q8H PRN Nausea and Vomiting Pharmacy Consult 1 each 05/18/20 16:12 Consult Rx Perform Med Rec MISCELLANE ONCE PRN Consult order Time Spent With Patient Time: Total time spent is greater than 50% in coordination of care (as documented) at patient's floor/unit and/or counseling patient: Time with patient: less than 15 minutes
--- NOTE | 2020-05-23 11:45 | HO.PM.IMPN ---
Subjective Subjective Date of Service: 05/23/20 Interval History: Patient remains frustrated regarding his blood pressure control, complaining of headache, no dizziness, no chest pain, no shortness of breath, no other acute medical issues. Review of Systems General frontal headache,no dizziness, no fever chills, no tremors. CVS no chest pain, no palpitation. Respiratory no cough, no shortness of breath Gastrointestinal no nausea, no vomiting, no abdominal pain Physical Exam Vital Signs: Vital Signs: Last Vital Signs Temp 97.4 F 05/23/20 07:30 Pulse 82 05/23/20 08:01 Resp 20 05/23/20 07:30 BP 148/74 H 05/23/20 10:52 Pulse Ox 97 05/23/20 07:30 Body Mass Index 27.3 General awake, alert ,no distress Neck supple no JVD. CVS regular rate rhythm, Respiratory lungs clear to auscultation, no respiratory distress, no wheeze, no rhonchi. Gastrointestinal abdomen soft, nontender, bowel sounds audible Extremities no clubbing cyanosis or edema. Neuro speech clear, right hemianopsia. Skin no rash Objective Data Current Medications Generic Name Dose Route Start Last Admin Trade Name Freq PRN Reason Stop Dose Admin Acetaminophen 650 mg 05/18/20 19:50 05/23/20 08:01 Acetaminophen 325 Mg Tablet PO 650 mg Q6H PRN Administration Pain, Mild (Pain Scale 1-3) Aspirin 81 mg 05/19/20 09:00 05/23/20 08:01 Aspirin Enteric Coated 81 Mg Tablet. PO 81 mg DAILY NURIS Administration Atorvastatin Calcium 80 mg 05/19/20 09:00 05/23/20 08:01 Atorvastatin Calcium 80 Mg Tablet PO 80 mg DAILY NURIS Administration Carvedilol 12.5 mg 05/22/20 09:00 05/23/20 08:01 Carvedilol 12.5 Mg Tablet PO 12.5 mg BID NURIS Administration Protocol Docusate Sodium 100 mg 05/20/20 21:00 05/23/20 08:01 Docusate Sodium 100 Mg Capsule PO 100 mg BID NURIS Administration Heparin Sodium (Porcine) 5,000 unit 05/18/20 20:00 05/23/20 08:02 Heparin Sodium,Porcine 5,000 Unit/Ml Vial SUBCUT 5,000 unit Q12H NURIS Administration Hydralazine HCl 50 mg 05/22/20 20:00 05/23/20 08:01 Hydralazine Hcl 50 Mg Tablet PO 50 mg Q6H NURIS Administration Protocol Lisinopril 20 mg 05/22/20 09:00 05/23/20 08:01 Lisinopril 20 Mg Tablet PO 20 mg BID NURIS Administration Protocol Nicotine 21 mg 05/19/20 09:00 05/23/20 08:02 Nicotine 21 Mg Patch.Td24 TRANSDERMA 21 mg DAILY NURIS Administration Nicotine Polacrilex 2 mg 05/18/20 19:52 05/19/20 06:35 Nicotine Polacrilex 2 Mg Gum BUCCAL 2 mg Q2H PRN Administration withdrawl Ondansetron HCl 4 mg 05/18/20 19:50 Ondansetron Hcl 4 Mg/2 Ml Vial IVPUSH Q8H PRN Nausea and Vomiting Pharmacy Consult 1 each 05/18/20 16:12 Consult Rx Perform Med Rec MISCELLANE ONCE PRN Consult order Labs CBC & Chem 7: 05/19/20 06:02 05/19/20 06:02 Microbiology Microbiology Results: Microbiology 05/19/20 00:10 Blood - Venous Blood Culture - Preliminary No growth after 48 hours. 05/19/20 00:10 Blood - Venous Blood Culture - Preliminary No growth after 48 hours. Assessment and Plan (1) PAF (paroxysmal atrial fibrillation): Status: Acute (2) Atrial arrhythmia: Status: Acute (3) Uncontrolled hypertension: Status: Acute (4) Stroke: Status: Acute (5) Atrial fibrillation: Status: Acute (6) 2019 novel coronavirus disease (COVID-19): Status: Acute (7) Gout: Status: Acute (8) Chronic constipation: Status: Acute (9) Abdominal aortic aneurysm: Problem details: 04/[address] scan showed 4.2 cm abdominal aortic aneurysm. Status: Acute (10) Hypertension: Status: Acute Assessment and Plan: 65-year-old man admitted with acute stroke. Also found to have new onset of atrial fibrillation with rapid ventricular response. Acute CVA involving left posterior cerebral artery. Confusion resolved, persistent headache, no new deficit, persistent right hemianopsia MRI showed acute infarction involving vascular territory of left posterior cerebral artery and scattered chronic small-vessel ischemic changes involving periventricular white matter and latha there is also few small chronic microhemorrhages within the latha suggestive of underlying hypertensive angiopathy Carotids shows no obstruction Repeat CT head 11/28/2021 showed no new abnormality continue aspirin , Lipitor echocardiogram showed EF 40, mild diastolic dysfunction mildly increased left ventricular wall thickness. Patient seen by Physical therapy and they are recommending home with occupational therapy Patient blood pressure better controlled but remains elevated at night, patient will be placed on anticoagulation after 1-2 weeks called patient Eli mann [phone] and updated her about patient's current condition. will add fiorecet for headache. Question Atrial fibrillation Patient remains in normal sinus rhythm, tele monitor showed no arrhythmia, patient placed on Coreg 12.5 mg b.i.d. and Cardizem discontinued due to low EF TSH, 2.7 and normal Mag. Case discussed with Cardiology and they recommend anticoagulation starting in next 1-2 weeks History of abdominal aortic aneurysm Patient seen by Dr. Rene, he does not feel eccentric thrombus in abdominal aneurysm is source of stroke, he recommend aspirin and Plavix. Uncontrolled Hypertension. Patient blood pressure better controlled this morning but overnight BP remains elevated on Coreg 12.5 b.i.d., hydralazine 50 q.i.d., lisinopril 20 b.i.d., case discussed with Cardiology and Nephrology will increase dose of hydralazine to 100 mg t.i.d. will discuss with vascular surgery for evaluating abdominal aneurysm and at the same time check for renal artery stenosis with an MRA or CTA Being followed by Nephrology workup for secondary causes of hypo including pheo and primary hyperaldo is pend. Smoker. Continue Nicotine replacement therapy. Strongly recommend to abstain from alcohol. History of daily alcohol consumption with no history of withdrawal seizure or delirium tremens , no tremors noted , will give as needed Ativan for anxiety/ tremors and follow clinical course. DVT prophylaxis with heparin
[2020-05-23] MEDS: hydrALAZINE HCl 25 MG TABLET 100 MG PO ×2 (13:41→20:43)
--- NOTE | 2020-05-23 16:13 | PM.PNNEP ---
Subjective Subjective Date of Service: 05/23/20 Interval history: Patient remains frustrated regarding his blood pressure control, complaining of headache and some r eye discomfort, no dizziness, no chest pain, no shortness of breath, no other acute medical issues. BPs labile but still runnong high Physical Exam Vital Signs: Vital Signs: Last Vital Signs Temp 99.2 F 05/23/20 15:41 Pulse 73 05/23/20 15:41 Resp 19 05/23/20 15:41 BP 160/87 H 05/23/20 15:41 Pulse Ox 98 05/23/20 15:41 Body Mass Index 27.3 Const: Other: Ill appearing, weak General: cooperative, comfortable and no acute distress Nutritional Appearance: average body habitus Orientation/consciousness: oriented to person and patient oriented x3 Limitations: altered mental status HENMT: Other: Unremarkable Head: Yes normal to inspection Ears: external ears normal General nose exam: Normal external nose present Mouth: Normal oral and palatal mucosa present and oropharynx normal Throat: Yes posterior oropharynx normal Eyes: General: appearance normal, both eyes and all related structures Neck: Other: supple Neck: Yes normal visual inspection Chest: Chest palpation & inspection: normal inspection of the chest Resp: Auscultation: clear to auscultation bilaterally, no crackles and no wheezes Cardio: Other: Ill appearing, weak Jugular venous distension: no JVD Palpation: normal PMI Rate: regular rate Rhythm: regular rhythm Heart sounds: S1 normal heart sound present, S2 normal heart sound present, no gallops, no murmurs and no rubs GI: Inspection: Yes normal to inspection Palpation (GI): Soft to palpation, nontender and No hepatosplenomegaly present Auscultation: normal bowel sounds : General: Yes no CVA tenderness Back/Spine/Pelvis: Other: unremarkable Back: no CVA tenderness Skin: General skin exam: no rashes or lesions noted Neuro: General: oriented to person and patient oriented x3 Cranial nerves: Yes CN's II-XII intact bilaterally Motor exam (neuro): 5/5 motor strength present throughout Sensory Exam: No Sensory deficit (Neuro) Plantar Reflex Responses: downgoing: bilateral, upgoing (positive Babinski): bilateral and equivocal: bilateral Doll's-Eye Reflex: Present Extrem: General: Yes normal to inspection and Yes no clubbing, cyanosis or edema Psych: Appearance: grossly normal Mental Status: mental status grossly normal Objective Data Labs CBC & Chem 7: 05/19/20 06:02 05/19/20 06:02 Microbiology Microbiology Results: Microbiology 05/19/20 00:10 Blood - Venous Blood Culture - Preliminary No growth after 48 hours. 05/19/20 00:10 Blood - Venous Blood Culture - Preliminary No growth after 48 hours. Assessment & Plan Assessment and plan (1) PAF (paroxysmal atrial fibrillation): Status: Acute (2) Atrial arrhythmia: Status: Acute (3) Uncontrolled hypertension: Status: Acute (4) Stroke: Status: Acute (5) Atrial fibrillation: Status: Acute (6) 2019 novel coronavirus disease (COVID-19): Status: Acute (7) Gout: Status: Acute (8) Chronic constipation: Status: Acute (9) Abdominal aortic aneurysm: Problem details: 04/[address] scan showed 4.2 cm abdominal aortic aneurysm. Status: Acute (10) Hypertension: Status: Acute Assessment and Plan: 65-year-old man admitted with acute stroke and severe uncontrolled HTN 1. Severe uncontrolled HTN despite 4 BP meds..not on diuretic yet need to r/o 2ry causes of HTN; endocrine labs for cause of HTN are pending JOE; doppler ques JOE; needs further eval with CTA or MRA question goal target for BP given recent CVA...cardiolgy managing BP target and med adjsutments 2,Afib 3. AAA Rec: add diurtetic chlorthalidone 12.5 and spirnolactoen if cont BP not at target; CTA to r/o JOE ( I will order the latter) Time Spent With Patient Time: Total time spent is greater than 50% in coordination of care (as documented) at patient's floor/unit and/or counseling patient:
[2020-05-23] MEDS: iohexoL 350 MG/ML 100 ML INFUS..BTL IV (17:15)
[2020-05-24] VITALS (11 sets, daily range): BP systolic 158–192; BP diastolic 70–100; PULSE 62–81; RESP 18; TEMP 36.3–37.1; O2SAT 95–98
[2020-05-24] MEDS: Butalb/Acetamin/Caff 50/325/40 TABLET 1 TAB PO (03:32)
[2020-05-24] MEDS: hydrALAZINE HCl 25 MG TABLET 100 MG PO ×3 (03:33→20:21)
[2020-05-24 06:11] LABS: MANUAL DIFF FLAG NO
[2020-05-24 06:19] LABS: Basophils Absolute Auto 0.1 X10*3/uL (0.0-0.2); Basophils Percent Auto 1.1 % (0-2); Eosinophils Absolute Auto 0.1 X10*3/uL (0.0-0.4); Hematocrit 44.5 % (42-52); Hemoglobin 15.3 g/dl (14.0-18.0); Imm Gran Abs Auto 0.01 X10*3/uL (0.00-0.03); Imm Gran Pct Auto 0.2 % (0.0-0.4); Lymphocytes Absolute Auto 2.4 X10*3/uL (1.2-4.9); Lymphocytes Percent Auto 50.4 % (20-40); Mean Corpuscular HGB Conc 34.4 g/dl (31.0-36.0); Mean Corpuscular Hemoglobin 30.1 pg (27.0-33.0); Mean Corpuscular Volume 87.6 fL (80-98); Mean Platelet Volume 12.3 fL (9.4-12.4); Monocytes Absolute Auto 0.9 X10*3/uL (0.1-1.2); Monocytes Percent Auto 18.9 % (2-11); Neutrophils Absolute Auto 1.3 X10*3/uL (2.0-8.3); Neutrophils Percent Auto 26.4 % (45-73); Platelet Count 162 X10*3/uL (160-400); Red Blood Count 5.08 X10*6/uL (4.60-5.80); Red Cell Distribution Width 13.2 % (11.0-16.0); White Blood Count 4.7 X10*3/uL (4.8-10.8)
[2020-05-24 06:56] LABS: Anion Gap 15 (12-20); Blood Urea Nitrogen 14 mg/dL (9-16); Calcium 8.6 mg/dL (8.4-10.2); Carbon Dioxide 21 mmol/L (22-29); Chloride 107 mmol/L (96-108); Creatinine Clr Calc Pharmacy 97.6; Estimated Glomerular Filt Rate > 60; Glucose Random 87 mg/dL (60-115); Potassium 3.7 mmol/l (3.3-5.1); Sodium 139 mmol/L (135-145)
[2020-05-24] MEDS: Docusate Sodium 100 MG CAPSULE PO ×2 (08:28→20:21)
[2020-05-24] MEDS: Aspirin Enteric Coated 81 MG TABLET.DR PO (08:28)
[2020-05-24] MEDS: Atorvastatin Calcium 80 MG TABLET PO (08:28)
[2020-05-24] MEDS: Heparin Sodium,Porcine 5,000 UNIT/ML VIAL 5000 UNIT SUBCUT ×2 (08:29→20:21)
[2020-05-24] MEDS: Nicotine 21 MG PATCH.TD24 TRANSDERMA (08:29)
[2020-05-24] MEDS: carvediloL 12.5 MG TABLET PO ×2 (08:29→20:22)
[2020-05-24] MEDS: Acetaminophen 325 MG TABLET 650 MG PO ×2 (08:30→15:35)
--- NOTE | 2020-05-24 10:26 | PM.PNNEP ---
Subjective Subjective Date of Service: 05/24/20 Interval history: Cont complaining of headache on/off and some r eye discomfort, no dizziness, no chest pain, no shortness of breath, no other acute medical issues. BPs labile but still runnig high CTA showed signif JOE Physical Exam Vital Signs: Vital Signs: Last Vital Signs Temp 97.4 F 05/24/20 07:43 Pulse 72 05/24/20 08:29 Resp 18 05/24/20 07:43 BP 172/70 H 05/24/20 08:29 Pulse Ox 97 05/24/20 07:43 Body Mass Index 27.3 Const: Other: Ill appearing, weak General: cooperative, comfortable and no acute distress Nutritional Appearance: average body habitus Orientation/consciousness: oriented to person and patient oriented x3 Limitations: altered mental status HENMT: Other: Unremarkable Head: Yes normal to inspection Ears: external ears normal General nose exam: Normal external nose present Mouth: Normal oral and palatal mucosa present and oropharynx normal Throat: Yes posterior oropharynx normal Eyes: General: appearance normal, both eyes and all related structures Neck: Other: supple Neck: Yes normal visual inspection Chest: Chest palpation & inspection: normal inspection of the chest Resp: Auscultation: clear to auscultation bilaterally, no crackles and no wheezes Cardio: Other: Ill appearing, weak Jugular venous distension: no JVD Palpation: normal PMI Rate: regular rate Rhythm: regular rhythm Heart sounds: S1 normal heart sound present, S2 normal heart sound present, no gallops, no murmurs and no rubs GI: Inspection: Yes normal to inspection Palpation (GI): Soft to palpation, nontender and No hepatosplenomegaly present Auscultation: normal bowel sounds : General: Yes no CVA tenderness Back/Spine/Pelvis: Other: unremarkable Back: no CVA tenderness Skin: General skin exam: no rashes or lesions noted Neuro: General: oriented to person and patient oriented x3 Cranial nerves: Yes CN's II-XII intact bilaterally Motor exam (neuro): 5/5 motor strength present throughout Sensory Exam: No Sensory deficit (Neuro) Plantar Reflex Responses: downgoing: bilateral, upgoing (positive Babinski): bilateral and equivocal: bilateral Doll's-Eye Reflex: Present Extrem: General: Yes normal to inspection and Yes no clubbing, cyanosis or edema Psych: Appearance: grossly normal Mental Status: mental status grossly normal Objective Data Labs CBC & Chem 7: 05/24/20 05:26 05/24/20 05:26 Labs: Laboratory Results - last 24 hr 05/24/20 05/24/20 05:26 05:26 WBC 4.7 L RBC 5.08 Hgb 15.3 Hct 44.5 MCV 87.6 MCH 30.1 MCHC 34.4 RDW 13.2 Plt Count 162 MPV 12.3 Immature Gran % (Auto) 0.2 Neut % (Auto) 26.4 L Lymph % (Auto) 50.4 H [place] % (Auto) 18.9 H Eos % (Auto) 3.0 Baso % (Auto) 1.1 Lymph # (Auto) 2.4 [place] # (Auto) 0.9 Eos # (Auto) 0.1 Baso # (Auto) 0.1 Abs Immat Gran (auto) 0.01 Absolute Neuts (auto) 1.3 L Absolute Nucleated RBC 0.000 Nucleated RBC % (auto) 0.0 Sodium 139 Potassium 3.7 Chloride 107 Carbon Dioxide 21 L Anion Gap 15 BUN 14 Creatinine 0.71 Estim Creat Clear Calc 97.6 Estimated GFR > 60 Random Glucose 87 Calcium 8.6 Microbiology Microbiology Results: Microbiology 05/19/20 00:10 Blood - Venous Blood Culture - Final No growth after 5 days. 05/19/20 00:10 Blood - Venous Blood Culture - Final No growth after 5 days. Assessment & Plan Assessment and plan (1) PAF (paroxysmal atrial fibrillation): Status: Acute (2) Atrial arrhythmia: Status: Acute (3) Uncontrolled hypertension: Status: Acute (4) Stroke: Status: Acute (5) Atrial fibrillation: Status: Acute (6) 2019 novel coronavirus disease (COVID-19): Status: Acute (7) Gout: Status: Acute (8) Chronic constipation: Status: Acute (9) Abdominal aortic aneurysm: Problem details: 04/[address] scan showed 4.2 cm abdominal aortic aneurysm. Status: Acute (10) Hypertension: Status: Acute Assessment and Plan: 65-year-old man admitted with acute stroke and severe uncontrolled HTN 1. Severe uncontrolled HTN despite 4 BP meds..not on diuretic yet w/u suspicious for RVH form JOE..vasc to see question goal target for BP given recent CVA...cardiolgy managing BP target and med adjsutments 2,Afib 3. AAA Rec: add diurtetic chlorthalidone 12.5 and spirnolactone if cont BP not at target; vasc to see re: JOE and options for intervention given uncontrolled HTN and compiannce issues Time Spent With Patient Time: Total time spent is greater than 50% in coordination of care (as documented) at patient's floor/unit and/or counseling patient:
[2020-05-24] MEDS: hydroCHLOROthiazide 25 MG TABLET PO (11:17)
[2020-05-24] MEDS: LORazepam 0.5 MG TABLET PO (11:17)
--- NOTE | 2020-05-24 11:22 | MHC.CM.PN ---
Per ROUNDS discussion, Patient is not yet medically cleared for dc (BP issues and may need a stent).Goal for dc is home with [facility] and CM will continue to follow for dc planning and possible need to adjust the dc plan.
--- NOTE | 2020-05-24 12:16 | PM.PNCARD ---
Subjective Subjective Date of Service: 05/24/20 Principal diagnosis: HTN, CVA, Afib. JOE Interval history: No new complaints. Right-sided visual changes. Review of Systems Review of Systems No new complaints Physical Exam Vital Signs: Last Vital Signs Temp 97.8 F 05/24/20 11:25 Pulse 62 05/24/20 11:25 Resp 18 05/24/20 11:25 BP 186/90 H 05/24/20 11:25 Pulse Ox 98 05/24/20 11:25 Body Mass Index 27.3 GENERAL APPEARANCE: in no acute distress, well developed, well nourished. HEENT: unremarkable. HEAD: normocephalic, atraumatic. NECK/THYROID: no carotid bruit, no jugular venous distention. SKIN: no suspicious lesions, warm and dry. HEART: no murmurs, regular rate and rhythm, S1, S2 normal. LUNGS: clear to auscultation bilaterally. ABDOMEN: normal, bowel sounds present, soft, nontender, nondistended. EXTREMITIES: no clubbing, cyanosis, or edema. PERIPHERAL PULSES: equal. NEUROLOGIC: Visual changes right eye. Moving all extremities. PSYCH: mood/affect full range. Results Labs and Meds Result diagrams: 05/24/20 05:26 05/24/20 05:26 Lab results: Laboratory Results - last 24 hr 05/24/20 05/24/20 05:26 05:26 WBC 4.7 L RBC 5.08 Hgb 15.3 Hct 44.5 MCV 87.6 MCH 30.1 MCHC 34.4 RDW 13.2 Plt Count 162 MPV 12.3 Immature Gran % (Auto) 0.2 Neut % (Auto) 26.4 L Lymph % (Auto) 50.4 H [place] % (Auto) 18.9 H Eos % (Auto) 3.0 Baso % (Auto) 1.1 Lymph # (Auto) 2.4 [place] # (Auto) 0.9 Eos # (Auto) 0.1 Baso # (Auto) 0.1 Abs Immat Gran (auto) 0.01 Absolute Neuts (auto) 1.3 L Absolute Nucleated RBC 0.000 Nucleated RBC % (auto) 0.0 Sodium 139 Potassium 3.7 Chloride 107 Carbon Dioxide 21 L Anion Gap 15 BUN 14 Creatinine 0.71 Estim Creat Clear Calc 97.6 Estimated GFR > 60 Random Glucose 87 Calcium 8.6 Imaging Radiologist's impression: Impressions Abdomen/Pelvis CTA 05/23/20 00:00 IMPRESSION: Diffuse abdominal aortic aneurysm as described above with significant thrombus seen in the distal and moderate thrombus in mid segment. There is moderate to high-grade stenosis left renal artery and mild stenosis of right renal artery. There is mild stenosis proximal celiac artery. The origins of celiac and superior mesenteric artery are patent. Inferior mesenteric artery is visualized but no flow seen at the origin. There is reconstitution of flow in the mid segment from collateral vessels. Diffuse colonic diverticulosis most prominent in the sigmoid colon. No evidence of diverticulitis. Moderate prostate enlargement with central gland calcification. Progress Note: A&P Assessment and plan (1) PAF (paroxysmal atrial fibrillation): Status: Acute (2) Uncontrolled hypertension: Status: Acute (3) Stroke: Status: Acute (4) Abdominal aortic aneurysm: Problem details: 04/[address] scan showed 4.2 cm abdominal aortic aneurysm. Status: Acute (5) JOE (renal artery stenosis): Status: Acute Assessment and Plan: 65-year-old gentleman is presenting with CVA. He has significantly elevated blood pressures. He also had run of atrial fibrillation in the ER. He has been sinus rhythm since then. CT scan of his abdomen has shown abdominal aortic aneurysm with thrombus as well as concern for renal artery stenosis. Renal ultrasound is showing right renal artery more than 60% stenosis with CTA is pointing to her moderate to severe stenosis of the left renal artery and mild stenosis in the right renal artery. This is somewhat confusing. In any case his blood pressure is elevated right now. He is on multiple medication including a diuretic right now. If kidney function and potassium are stable, then add spironolactone 25 mg once a day. Agree with vascular surgery assessment given abdominal aortic aneurysm as well as renal artery disease. From atrial fibrillation point of view, given recent stroke agree with holding the anticoagulation. As per Neurology notes, anticoagulation and he started 1 week from the stroke. We will follow along with you. Thank you for allowing me to participate in the care of your patient. Please feel free to contact me if you have any questions. Fall Risk Details Current Medications: Current Medications Generic Name Dose Route Start Last Admin Trade Name Freq PRN Reason Stop Dose Admin Acetaminophen 650 mg 05/18/20 19:50 05/24/20 08:30 Acetaminophen 325 Mg Tablet PO 650 mg Q6H PRN Administration Pain, Mild (Pain Scale 1-3) Acetaminophen/Butalbital/Caffeine 1 tab 05/23/20 12:07 05/24/20 03:32 Butalb/Acetamin/Caff 50/325/40 Tablet PO 1 tab Q6H PRN Administration headache Aspirin 81 mg 05/19/20 09:00 05/24/20 08:28 Aspirin Enteric Coated 81 Mg Tablet.Dr PO 81 mg DAILY NURIS Administration Atorvastatin Calcium 80 mg 05/19/20 09:00 05/24/20 08:28 Atorvastatin Calcium 80 Mg Tablet PO 80 mg DAILY NURIS Administration Carvedilol 12.5 mg 05/22/20 09:00 05/24/20 08:29 Carvedilol 12.5 Mg Tablet PO 12.5 mg BID NURIS Administration Protocol Docusate Sodium 100 mg 05/20/20 21:00 05/24/20 08:28 Docusate Sodium 100 Mg Capsule PO 100 mg BID NURIS Administration Heparin Sodium (Porcine) 5,000 unit 05/18/20 20:00 05/24/20 08:29 Heparin Sodium,Porcine 5,000 Unit/Ml Vial SUBCUT 5,000 unit Q12H NURIS Administration Hydralazine HCl 100 mg 05/23/20 12:15 05/24/20 03:33 Hydralazine Hcl 25 Mg Tablet PO 100 mg Q8H NURIS Administration Protocol Hydrochlorothiazide 25 mg 05/24/20 10:45 05/24/20 11:17 Hydrochlorothiazide 25 Mg Tablet PO 25 mg DAILY NURIS Administration Protocol Lisinopril 20 mg 05/22/20 09:00 05/24/20 08:29 Lisinopril 20 Mg Tablet PO 20 mg BID NURIS Administration Protocol Lorazepam 0.5 mg 05/24/20 10:42 05/24/20 11:17 Lorazepam 0.5 Mg Tablet PO 0.5 mg Q8H PRN Administration anxiety/restlessness Nicotine 21 mg 05/19/20 09:00 05/24/20 08:29 Nicotine 21 Mg Patch.Td24 TRANSDERMA 21 mg DAILY NURIS Administration Nicotine Polacrilex 2 mg 05/18/20 19:52 05/19/20 06:35 Nicotine Polacrilex 2 Mg Gum BUCCAL 2 mg Q2H PRN Administration withdrawl Ondansetron HCl 4 mg 05/18/20 19:50 Ondansetron Hcl 4 Mg/2 Ml Vial IVPUSH Q8H PRN Nausea and Vomiting Pharmacy Consult 1 each 05/18/20 16:12 Consult Rx Perform Med Rec MISCELLANE ONCE PRN Consult order Time Spent With Patient Time: Total time spent is greater than 50% in coordination of care (as documented) at patient's floor/unit and/or counseling patient: Time with patient: 15 - 24 minutes
--- NOTE | 2020-05-24 13:11 | P.PNVS_ITS ---
Subjective Subjective Date of Service: 05/24/20 Patient reports: no new complaints Interval history: Patient for follow-up. He was initially seen by me for stroke. He had no significant carotid disease. In the interim it was discovered that he has uncontrolled hypertension. He was seen by Nephrology and subsequently underwent S CTA of the abdomen which identified high-grade left renal artery stenosis. He now presents to us for follow-up evaluation. Physical Exam Vital Signs: Vital Signs: Last Vital Signs Temp 97.8 F 05/24/20 11:25 Pulse 66 05/24/20 12:47 Resp 18 05/24/20 11:25 BP 158/76 H 05/24/20 12:47 Pulse Ox 98 05/24/20 11:25 Body Mass Index 27.3 Const: General: cooperative, healthy appearing and no acute distress Or ientation/consciousness: oriented to person, oriented to place and oriented to time HENMT: Head: Yes normal to inspection Neck: Carotids: no bruits Chest: Chest palpation & inspection: normal inspection of the chest Resp: Effort & Inspection: normal respiratory effort and able to speak in complete sentences Auscultation: clear to auscultation bilaterally Cardio: Rate: regular rate Heart sounds: S1 normal heart sound present and S2 normal heart sound present GI: Inspection: Yes normal to inspection Skin: General skin exam: no rashes or lesions noted Wounds: no wounds Neuro: General: oriented to person, oriented to place, oriented to time and CN's II-XI intact bilaterally Extrem: General: Yes normal to inspection, Yes full ROM and Yes no clubbing, cyanosis or edema Psych: Appearance: grossly normal and well kempt Speech and movement: Normal speech and movement present Affect: normal affect Progress Note: A&P Assessment and plan (1) Left renal artery stenosis: Status: Acute Assessment and Plan: In short patient has identified left renal artery stenosis. This would definitely be contributing to his uncontrolled hypertension. He will require endovascular intervention. Due to his acute onset stroke will have to hold off on procedure for a total of 6 weeks from the initial stroke, as it is somewhat larger in nature. I have discussed these findings in detail with the patient. He demonstrated a clear understanding. We will schedule him as an outpatient within the next 3-4 weeks. Thank you for allowing us to assist in his care. Fall Risk Details Current Medications: Current Medications Generic Name Dose Route Start Last Admin Trade Name Freq PRN Reason Stop Dose Admin Acetaminophen 650 mg 05/18/20 19:50 05/24/20 08:30 Acetaminophen 325 Mg Tablet PO 650 mg Q6H PRN Administration Pain, Mild (Pain Scale 1-3) Acetaminophen/Butalbital/Caffeine 1 tab 05/23/20 12:07 05/24/20 03:32 Butalb/Acetamin/Caff 50/325/40 Tablet PO 1 tab Q6H PRN Administration headache Aspirin 81 mg 05/19/20 09:00 05/24/20 08:28 Aspirin Enteric Coated 81 Mg Tablet.Dr PO 81 mg DAILY NURIS Administration Atorvastatin Calcium 80 mg 05/19/20 09:00 05/24/20 08:28 Atorvastatin Calcium 80 Mg Tablet PO 80 mg DAILY NURIS Administration Carvedilol 12.5 mg 05/22/20 09:00 05/24/20 08:29 Carvedilol 12.5 Mg Tablet PO 12.5 mg BID NURIS Administration Protocol Docusate Sodium 100 mg 05/20/20 21:00 05/24/20 08:28 Docusate Sodium 100 Mg Capsule PO 100 mg BID NURIS Administration Heparin Sodium (Porcine) 5,000 unit 05/18/20 20:00 05/24/20 08:29 Heparin Sodium,Porcine 5,000 Unit/Ml Vial SUBCUT 5,000 unit Q12H NURIS Administration Hydralazine HCl 100 mg 05/23/20 12:15 05/24/20 12:47 Hydralazine Hcl 25 Mg Tablet PO 100 mg Q8H NURIS Administration Protocol Hydrochlorothiazide 25 mg 05/24/20 10:45 05/24/20 11:17 Hydrochlorothiazide 25 Mg Tablet PO 25 mg DAILY NURIS Administration Protocol Lisinopril 20 mg 05/22/20 09:00 05/24/20 08:29 Lisinopril 20 Mg Tablet PO 20 mg BID NURIS Administration Protocol Lorazepam 0.5 mg 05/24/20 10:42 05/24/20 11:17 Lorazepam 0.5 Mg Tablet PO 0.5 mg Q8H PRN Administration anxiety/restlessness Nicotine 21 mg 05/19/20 09:00 05/24/20 08:29 Nicotine 21 Mg Patch.Td24 TRANSDERMA 21 mg DAILY NURIS Administration Nicotine Polacrilex 2 mg 05/18/20 19:52 05/19/20 06:35 Nicotine Polacrilex 2 Mg Gum BUCCAL 2 mg Q2H PRN Administration withdrawl Ondansetron HCl 4 mg 05/18/20 19:50 Ondansetron Hcl 4 Mg/2 Ml Vial IVPUSH Q8H PRN Nausea and Vomiting Pharmacy Consult 1 each 05/18/20 16:12 Consult Rx Perform Med Rec MISCELLANE ONCE PRN Consult order Time Spent With Patient Time: Total time spent is greater than 50% in coordination of care (as documented) at patient's floor/unit and/or counseling patient: Time with patient: 25 - 35 minutes
--- NOTE | 2020-05-24 13:41 | CONS_ITS ---
DATE OF SERVICE: 05/21/2020 REASON FOR CONSULTATION: I was called to see this patient to assist in the management of the patient's resistant hypertension. HISTORY OF PRESENT ILLNESS: To summarize, Wesley is known to us. We have seen him in the past. His last office visit was in 2018. He has a history of resistant hypertension and he has been noncompliant to the medication and he did not keep up with his followup appointments. He comes in because of lethargy and he was found to have right-sided visual changes with memory changes and headache. A CT scan revealed evidence of new stroke. At the time of admission, blood pressure was significantly elevated. Since admission, the blood pressure has been difficult to control. He is on at least 3 different medications. His blood pressure is still difficult to control and hence this consultation. PAST MEDICAL HISTORY: Ongoing medical problems include history of abdominal aortic aneurysm, CVA, resistant hypertension, history of gout. FAMILY HISTORY: Father had colon cancer. PAST SURGICAL HISTORY: History of appendicectomy. SOCIAL HISTORY: History of smoking more than 1 pack per day. He also consumes alcohol and has a history of using marijuana. REVIEW OF SYSTEMS: Includes headache. He has no nausea or vomiting. No chest pain. No palpitations. No sweating. No diarrhea or constipation. No polyuria or polydipsia. No edema. All other systems were reviewed. PHYSICAL EXAMINATION: GENERAL: Wesley is a 65-year-old man who appears comfortable. NECK: Supple. No JVD. Mucosa is moist. VITAL SIGNS: Blood pressure today was 170/84, pulse 69, temperature 97.3. Intake and output were reviewed. Nonoliguric. LABORATORY DATA: Hemoglobin 16.8, platelets 183,000. Sodium 140, potassium 3.4, CO2 of 26, BUN 20, creatinine 0.76. AST and ALT were mildly elevated. Troponin I of 53.9. Urinalysis showed 1+ protein by dipstick. No blood. CT of the head done 2 days ago showed large left occipital infarct, appears subacute to old which was a new finding, generalized atrophy, and old bilateral basal ganglia, lacunar infarcts. IMPRESSION: A 65-year-old man with resistant hypertension in the setting of chronic smoking, comes in with occipital infarct. The goal at this point is to optimize his blood pressure. We will avoid rapid loading of blood pressure. All the current medications were reviewed. Over the next 24 to 48 hours, we will try to maintain the systolic blood pressure between 140 and 160 mmHg. I believe Cardiology has made changes to his medications today, and he will be on Coreg 12.5 mg b.i.d., lisinopril 20 mg b.i.d., and spironolactone has been switched to Aldactazide 25/25 one a day. He did receive a dose of hydralazine 25 mg without any significant improvement in his blood pressure. I would add hydralazine 50 mg three times a day. We will watch his blood pressure closely and again as mentioned above, we would avoid rapid drops in blood pressure. At the present time, renal function is stable. To complete the workup, I would certainly obtain a renal ultrasonogram with Doppler of renal arteries to screen for renal artery stenosis, especially with a history of longstanding smoking. We will follow him closely along with the team. MD EVELIO Hollins/MODL / [id number]
--- NOTE | 2020-05-24 14:02 | P.PNIM_ITS ---
Subjective Subjective Date of Service: 05/24/20 Interval History: Patient remains frustrated due to uncontrolled blood pressure complaining of headache, persistent right hemianopsia, no chest pain no new neuro deficit, no other acute issues overnight. Review of Systems General left-sided frontal headache,no dizziness, no fever chills, no tremors. CVS no chest pain, no palpitation. Respiratory no cough, no shortness of breath Gastrointestinal no nausea, no vomiting, no abdominal pain, no diarrhea Physical Exam Vital Signs: Vital Signs: Last Vital Signs Temp 97.8 F 05/24/20 11:25 Pulse 66 05/24/20 12:47 Resp 18 05/24/20 11:25 BP 158/76 H 05/24/20 12:47 Pulse Ox 98 05/24/20 11:25 Body Mass Index 27.3 General awake, alert ,no distress Neck supple no JVD. CVS regular rate rhythm, Respiratory lungs clear to auscultation, no respiratory distress, no wheeze, no rhonchi. Gastrointestinal abdomen soft, nontender, bowel sounds audible Extremities no clubbing, no cyanosis or edema. Neuro speech clear, no weakness, right hemianopsia. Skin no rash Objective Data Current Medications Generic Name Dose Route Start Last Admin Trade Name Freq PRN Reason Stop Dose Admin Acetaminophen 650 mg 05/18/20 19:50 05/24/20 08:30 Acetaminophen 325 Mg Tablet PO 650 mg Q6H PRN Administration Pain, Mild (Pain Scale 1-3) Acetaminophen/Butalbital/Caffeine 1 tab 05/23/20 12:07 05/24/20 03:32 Butalb/Acetamin/Caff 50/325/40 Tablet PO 1 tab Q6H PRN Administration headache Aspirin 81 mg 05/19/20 09:00 05/24/20 08:28 Aspirin Enteric Coated 81 Mg Tablet. PO 81 mg DAILY NURIS Administration Atorvastatin Calcium 80 mg 05/19/20 09:00 05/24/20 08:28 Atorvastatin Calcium 80 Mg Tablet PO 80 mg DAILY NURIS Administration Carvedilol 12.5 mg 05/22/20 09:00 05/24/20 08:29 Carvedilol 12.5 Mg Tablet PO 12.5 mg BID NURIS Administration Protocol Docusate Sodium 100 mg 05/20/20 21:00 05/24/20 08:28 Docusate Sodium 100 Mg Capsule PO 100 mg BID NURIS Administration Heparin Sodium (Porcine) 5,000 unit 05/18/20 20:00 05/24/20 08:29 Heparin Sodium,Porcine 5,000 Unit/Ml Vial SUBCUT 5,000 unit Q12H NURIS Administration Hydralazine HCl 100 mg 05/23/20 12:15 05/24/20 12:47 Hydralazine Hcl 25 Mg Tablet PO 100 mg Q8H NUIRS Administration Protocol Hydrochlorothiazide 25 mg 05/24/20 10:45 05/24/20 11:17 Hydrochlorothiazide 25 Mg Tablet PO 25 mg DAILY NURIS Administration Protocol Lisinopril 20 mg 05/22/20 09:00 05/24/20 08:29 Lisinopril 20 Mg Tablet PO 20 mg BID NURIS Administration Protocol Lorazepam 0.5 mg 05/24/20 10:42 05/24/20 11:17 Lorazepam 0.5 Mg Tablet PO 0.5 mg Q8H PRN Administration anxiety/restlessness Nicotine 21 mg 05/19/20 09:00 05/24/20 08:29 Nicotine 21 Mg Patch.Td24 TRANSDERMA 21 mg DAILY NURIS Administration Nicotine Polacrilex 2 mg 05/18/20 19:52 05/19/20 06:35 Nicotine Polacrilex 2 Mg Gum BUCCAL 2 mg Q2H PRN Administration withdrawl Ondansetron HCl 4 mg 05/18/20 19:50 Ondansetron Hcl 4 Mg/2 Ml Vial IVPUSH Q8H PRN Nausea and Vomiting Pharmacy Consult 1 each 05/18/20 16:12 Consult Rx Perform Med Rec MISCELLANE ONCE PRN Consult order Labs CBC & Chem 7: 05/24/20 05:26 05/24/20 05:26 Microbiology Microbiology Results: Microbiology 05/19/20 00:10 Blood - Venous Blood Culture - Final No growth after 5 days. 05/19/20 00:10 Blood - Venous Blood Culture - Final No growth after 5 days. Assessment and Plan (1) Left renal artery stenosis: Status: Acute (2) PAF (paroxysmal atrial fibrillation): Status: Acute (3) Uncontrolled hypertension: Status: Acute (4) Atrial arrhythmia: Status: Acute (5) Stroke: Status: Acute (6) Abdominal aortic aneurysm: Problem details: 04/[address] scan showed 4.2 cm abdominal aortic aneurysm. Status: Acute Assessment and Plan: 65-year-old man admitted with acute stroke. Also found to have new onset of atrial fibrillation with rapid ventricular response. Acute CVA involving left posterior cerebral artery. Confusion resolved, persistent headache, no new deficit, persistent right hemianopsia MRI showed acute infarction involving vascular territory of left posterior c erebral artery and scattered chronic small-vessel ischemic changes involving periventricular white matter and latha there is also few small chronic microhemorrhages within the latha suggestive of underlying hypertensive angiopathy Carotids shows no obstruction Repeat CT head 11/28/2021 showed no new abnormality continue aspirin , Lipitor echocardiogram showed EF 40, mild diastolic dysfunction mildly increased left ventricular wall thickness. Patient seen by Physical therapy and they are recommending home with occupational therapy Patient blood pressure remains elevated blood pressure medicines being adjusted called patient Eli mann [phone] and updated her about patient's current condition and result of CTA abdomen and planned for renal artery stenting as outpatient. Out of bed to chair/ambulation as tolerated Will discuss with Cardiology when to start anticoagulation. Question Atrial fibrillation Noted to have atrial fibrillation on arrival to the emergency, subsequently c onverted to normal sinus rhythm, tele monitor showed no arrhythmia, patient placed on Coreg 12.5 mg b.i.d. and Cardizem discontinued due to low EF TSH, 2.7 and normal Mag. Case discussed with Cardiology and they recommend anticoagulation starting in next 1-2 weeks History of abdominal aortic aneurysm Patient seen by Dr. Rene, he does not feel eccentric thrombus in abdominal aneurysm is source of stroke, he recommend aspirin and Plavix. Uncontrolled Hypertension. Patient blood pressure remains elevated on Coreg 12.5 b.i.d., hydralazine 100mg t.i.d., lisinopril 20 b.i.d., therefore added hydrochlorothiazide 25 mg daily if BP remains elevated will add Aldactone 25 mg daily, resistant blood pressures likely secondary to left renal artery stenosis as seen on CTA abdomen case discussed with Dr. Rene due to acute large CVA he plans on doing procedure 6 weeks after the stroke Continue close blood pressure monitoring and treatment Smoker. Continue Nicotine replacement therapy. Strongly recommend to abstain from alcohol. History of daily alcohol consumption with no history of withdrawal seizure or delirium tremens , no tremors noted , ordered Ativan for anxiety/ tremors and follow clinical course. DVT prophylaxis with heparin
[2020-05-25] VITALS (10 sets, daily range): BP systolic 158–200; BP diastolic 82–102; PULSE 66–81; RESP 16–20; TEMP 36.4–37.2; O2SAT 92–99
[2020-05-25] MEDS: amLODIPine Besylate 5 MG TABLET PO ×2 (01:42→08:21)
[2020-05-25] MEDS: hydrALAZINE HCl 25 MG TABLET 100 MG PO ×2 (04:28→11:41)
[2020-05-25] MEDS: Aspirin Enteric Coated 81 MG TABLET.DR PO (08:20)
[2020-05-25] MEDS: hydroCHLOROthiazide 25 MG TABLET PO (08:20)
[2020-05-25] MEDS: Docusate Sodium 100 MG CAPSULE PO (08:20)
[2020-05-25] MEDS: carvediloL 12.5 MG TABLET PO (08:21)
[2020-05-25] MEDS: Spironolactone 25 MG TABLET PO (08:21)
[2020-05-25] MEDS: Heparin Sodium,Porcine 5,000 UNIT/ML VIAL 5000 UNIT SUBCUT (08:21)
[2020-05-25] MEDS: Nicotine 21 MG PATCH.TD24 TRANSDERMA (08:21)
[2020-05-25] MEDS: Atorvastatin Calcium 80 MG TABLET PO (08:21)
--- NOTE | 2020-05-25 11:19 | PM.PNNEP ---
Subjective Subjective Date of Service: 05/25/20 Principal diagnosis: HTN, CVA, Afib. JOE Interval history: Seen and edxamine. Events noted Physical Exam Vital Signs: Vital Signs: Last Vital Signs Temp 98.8 F 05/25/20 07:54 Pulse 79 05/25/20 08:21 Resp 20 05/25/20 07:54 BP 166/92 H 05/25/20 08:21 Pulse Ox 96 05/25/20 07:54 Body Mass Index 27.3 Const: Other: Ill appearing, weak General: cooperative, comfortable and no acute distress Nutritional Appearance: average body habitus Orientation/consciousness: oriented to person and patient oriented x3 Limitations: altered mental status HENMT: Other: Unremarkable Head: Yes normal to inspection Ears: external ears normal General nose exam: Normal external nose present Mouth: Normal oral and palatal mucosa present and oropharynx normal Throat: Yes posterior oropharynx normal Eyes: General: appearance normal, both eyes and all related structures Neck: Other: supple Neck: Yes normal visual inspection Chest: Chest palpation & inspection: normal inspection of the chest Resp: Auscultation: clear to auscultation bilaterally, no crackles and no wheezes Cardio: Other: Ill appearing, weak Jugular venous distension: no JVD Palpation: normal PMI Rate: regular rate Rhythm: regular rhythm Heart sounds: S1 normal heart sound present, S2 normal heart sound present, no gallops, no murmurs and no rubs GI: Inspection: Yes normal to inspection Palpation (GI): Soft to palpation, nontender and No hepatosplenomegaly present Auscultation: normal bowel sounds : General: Yes no CVA tenderness Back/Spine/Pelvis: Other: unremarkable Back: no CVA tenderness Skin: General skin exam: no rashes or lesions noted Neuro: General: oriented to person and patient oriented x3 Cranial nerves: Yes CN's II-XII intact bilaterally Motor exam (neuro): 5/5 motor strength present throughout Sensory Exam: No Sensory deficit (Neuro) Plantar Reflex Responses: downgoing: bilateral, upgoing (positive Babinski): bilateral and equivocal: bilateral Doll's-Eye Reflex: Present Extrem: General: Yes normal to inspection and Yes no clubbing, cyanosis or edema Psych: Appearance: grossly normal Mental Status: mental status grossly normal Objective Data Labs CBC & Chem 7: 05/24/20 05:26 05/24/20 05:26 Microbiology Microbiology Results: Microbiology 05/19/20 00:10 Blood - Venous Blood Culture - Final No growth after 5 days. 05/19/20 00:10 Blood - Venous Blood Culture - Final No growth after 5 days. Assessment & Plan Assessment and plan (1) PAF (paroxysmal atrial fibrillation): Status: Acute (2) Atrial arrhythmia: Status: Acute (3) Uncontrolled hypertension: Status: Acute (4) Stroke: Status: Acute (5) Atrial fibrillation: Status: Acute (6) 2019 novel coronavirus disease (COVID-19): Status: Acute (7) Gout: Status: Acute (8) Chronic constipation: Status: Acute (9) Abdominal aortic aneurysm: Problem details: 04/[address] scan showed 4.2 cm abdominal aortic aneurysm. Status: Acute (10) Hypertension: Status: Acute Assessment and Plan: 65-year-old man admitted with acute stroke and severe uncontrolled HTN 1. Severe uncontrolled HTN despite 4 BP and now on diuretic ..BP still high but better; JOE with RVH based on CTA...appreciate vasc input 2,Afib 3. AAA Rec: incr diurtetic chlorthalidone 25 and will look to add aldactone as outt; compiannce issues may be an issue after d/c'd Time Spent With Patient Time: Total time spent is greater than 50% in coordination of care (as documented) at patient's floor/unit and/or counseling patient:
[2020-05-25] MEDS: Acetaminophen 325 MG TABLET 650 MG PO (13:08)
--- NOTE | 2020-05-25 13:18 | P.DS_ITS ---
DS: Providers Provider Date of Service: 05/26/20 Date of admission: 05/18/20 19:50 Primary care physician: Aldo Browning MD Consults: 05/18/20 19:50 Consult to Neurology Routine Consulting Provider: [facility] Reason for consultation: stroke Has provider been notified: No 05/18/20 19:51 Consult to Cardiology Routine Consulting Provider: Farhan Paulino Reason for consultation: new afib rvr Has provider been notified: No 05/18/20 20:00 Consult to Vascular Surgery Routine Consulting Provider: Roddy Rene Reason for consultation: enlarged abd aorta with thrombus Has provider been notified: No 05/20/20 18:05 Consult to Nephrology Routine Consulting Provider: Jose Luis Jean Baptiste Reason for consultation: hypertension uncointrolled Has provider been notified: No DS: Diagnosis Discharge Diagnosis (1) PAF (paroxysmal atrial fibrillation): Status: Acute (2) Atrial arrhythmia: Status: Acute (3) Uncontrolled hypertension: Status: Acute (4) Stroke: Status: Acute (5) Atrial fibrillation: Status: Acute (6) 2019 novel coronavirus disease (COVID-19): Status: Acute (7) Gout: Status: Acute (8) Chronic constipation: Status: Acute (9) Abdominal aortic aneurysm: Status: Acute Problem details: 04/[address] scan showed 4.2 cm abdominal aortic aneurysm. (10) Hypertension: Status: Acute DS: Medications Discharge Medications Home Medications: Home Medications Medication Instructions Recorded Confirmed allopurinol 300 mg tablet 150 mg PO DAILY 02/23/20 05/18/20 Previous Rx's Medication Instructions Recorded amlodipine 5 mg PO DAILY #30 tab 05/25/20 apixaban [Eliquis] 5 mg PO BID #60 tab 05/25/20 aspirin 81 mg PO DAILY #30 tab 05/25/20 atorvastatin 80 mg PO DAILY #3 tab 05/25/20 carvedilol 12.5 mg PO BID #60 tab 05/25/20 docusate sodium 100 mg PO BID #60 cap 05/25/20 hydralazine 100 mg PO Q8H #90 tab 05/25/20 hydrochlorothiazide 25 mg PO DAILY #30 tab 05/25/20 lisinopril 20 mg PO BID #60 tab 05/25/20 nicotine 21 mg TRANSDERMAL DAILY #30 ea 05/25/20 spironolactone 25 mg PO DAILY #30 tab 05/25/20 DS: Summary Hospital Course Hospital Course: Chief Complaint: Lethargy 65-year-old man presenting to the ER with stroke symptoms. Apparently patient went to bed on Sunday night in his usual state of health and woke up on Sunday feeling unwell with right-sided visual changes, memory changes, headache and feeling off balance. According to the patient's he had been under couch for 2 days and seemed quite different from his usual. He denied chest pain, shortness of breath, nausea, vomiting, diarrhea, extremity weakness. He does have a history of prior CVAs, hypertension, smoking and alcohol use therefore he is quite high risk. It also appears that he has some vascular issues. He had an abdominal aortic ultrasound and October of 2019 which found diffuse enlargement of the abdominal aorta with diameter of 4.7 x 4.5 distally with peripheral eccentric thrombus. Head and neck CTA/CT showed acute to subacute Large left oc cipital infarction with occlusion of the P2 to P3 junction of the left [employer]. No other additional occlusions found. His hemoglobin was noted to be elevated 18.8, hematocrit 53.6. His BNP is elevated 464, AST 56, ALT 81, troponin 40.9. His EKG initially showed atrial fibrillation with rapid ventricular response with heart rate in 150s. This did improve after a Cardizem drip and the patient did convert to sinus rhythm. His blood pressure was also notably elevated at 1 90/113 however again this also improved. In the ER he also received a full dose of aspirin, Tylenol and 1 L of IV fluid. He will be admitted for further management and treatment of acute stroke. Past medical history Abdominal aortic aneurysm Chronic constipation CVA (cerebral vascular accident) Gout Hypertension 65-year-old man admitted with acute stroke,also found to have atrial fibrillation with rapid ventricular response in ER. Acute CVA involving left posterior cerebral artery, initially patient was found to be confused, had frontal headache, and right hemianopsia, prior to discharge patient confusion and headache has resolved He has no new neuro deficits,MRI showed acute infarction involving vascular territory of left posterior cerebral artery and scattered chronic small-vessel ischemic changes involving periventricular white matter and latha there is also few small chronic microhemorrhages within the latha suggestive of underlying hypertensive angiopathy,Carotids showed no obstruction,Repeat CT head 11/28/2021 showed no new abnormality,echocardiogram showed EF 40, mild diastolic dysfunction mildly increased left ventricular wall thickness, no thrombus. Patient seen by Physical therapy and they are recommending home with occupational therapy is being discharged home on Lipitor, aspirin and Eliquis, patient has been ambulating to bathroom no lightheadedness dizziness or unsteady gait. Patient was evaluated by Dr. Rene in regard to abdominal aortic aneurysm and he does not feel a centric thrombus in abdominal aneurysm is source of stroke Atrial fibrillation Patient in ER was noted to be in AFib treated with IV Cardizem subsequently patient converted to normal sinus rhythm and remained in normal sinus rhythm, heart rate stable on Coreg 12.5 b.i.d. patient is now being discharged on Coreg and Eliquis for anticoagulation patient was followed closely by Cardiology. Uncontrolled Hypertension due to left renal artery stenosis. Patient blood pressure was very difficult to control, CT abdomen showed moderate to high-grade left renal artery stenosis and showed diffuse abdominal aortic aneurysm with significant thrombus in the distal and moderate thrombus in the mid segment, patient is being discharged on Coreg 12.5 b.i.d., hydralazine 100mg t.i.d., lisinopril 20 b.i.d., hydrochlorothiazide 25 mg, Aldactone 25 mg and Norvasc 5 mg daily, patient seen by Dr. Rene and he will be evaluated in 2 weeks as outpatient for stent placement. Patient is being discharged with VNA services for close blood pressure monitoring. Case discussed with Nephrology Dr. Jean Baptiste he will follow up with patient in next 1-2 week and will make further adjustment and blood pressure medication. Smoker. Continue Nicotine replacement therapy. Strongly recommend to abstain from smoking and alcohol. Time Spent with Patient Time attestation: Total time spent providing and/or coordinating discharge services: Discharge coordination time: Greater than 30 minutes Quality: Stroke Pt Provided Written Stroke Discharge Instructions: Patient given written information Physical Exam Vital Signs: Vital Signs: Last Vital Signs Temp 99.0 F 05/25/20 12:00 Pulse 68 05/25/20 12:00 Resp 16 05/25/20 12:00 BP 158/82 H 05/25/20 12:00 Pulse Ox 92 05/25/20 12:00 Body Mass Index 27.3 General awake, alert ,no distress Neck supple no JVD. CVS regular rate rhythm, Respiratory lungs clear to auscultation, no respiratory distress, no wheeze, no rhonchi. Gastrointestinal abdomen soft, nontender, bowel sounds audible Extremities no clubbing, no cyanosis or edema. Neuro speech clear, no weakness Skin no rash DS: Data Data Completed and Pending Labs on day of discharge: Laboratory Tests 05/18/20 05/18/20 05/18/20 12:46 12:46 12:46 WBC 7.6 RBC 6.30 H Hgb 18.8 H Hct 53.6 H MCV 85.1 MCH 29.8 MCHC 35.1 RDW 13.3 Plt Count 220 MPV 10.8 Immature Gran % (Auto) 0.1 Neut % (Auto) 53.6 Lymph % (Auto) 33.3 Meagher % (Auto) 11.9 H Eos % (Auto) 0.4 Baso % (Auto) 0.7 Lymph # (Auto) 2.5 Meagher # (Auto) 0.9 Eos # (Auto) 0.0 Baso # (Auto) 0.1 Abs Immat Gran (auto) 0.01 Absolute Neuts (auto) 4.1 Absolute Nucleated RBC 0.000 Nucleated RBC % (auto) 0.0 Sodium 138 Potassium 3.5 Chloride 97 Carbon Dioxide 24 Anion Gap 21 H BUN 23 H Creatinine 0.91 Estim Creat Clear Calc 76.2 Estimated GFR > 60 Random Glucose 126 H Calcium 9.8 Magnesium 1.9 Total Bilirubin 0.9 Direct Bilirubin 0.5 AST 56 H ALT 81 H Alkaline Phosphatase 76 Troponin I High Sens 40.9 H Total Protein 8.3 H Albumin 4.5 Triglycerides Cholesterol LDL Cholesterol, Calc HDL Cholesterol TSH 2.70 Urine Color Urine Appearance Urine pH Ur Specific [place] Urine Protein Urine Glucose (UA) Urine Ketones Urine Blood Urine Nitrite Ur Leukocyte Esterase Urine RBC Urine WBC Ur Squamous Epith Cells Urine Bacteria Urine Mucus COVID-19 (MILLICENT) COVID-19 Clin Com 05/18/20 05/18/20 05/19/20 12:52 14:34 00:10 WBC RBC Hgb Hct MCV MCH MCHC RDW Plt Count MPV Immature Gran % (Auto) Neut % (Auto) Lymph % (Auto) Meagher % (Auto) Eos % (Auto) Baso % (Auto) Lymph # (Auto) Meagher # (Auto) Eos # (Auto) Baso # (Auto) Abs Immat Gran (auto) Absolute Neuts (auto) Absolute Nucleated RBC Nucleated RBC % (auto) Sodium Potassium Chloride Carbon Dioxide Anion Gap BUN Creatinine Estim Creat Clear Calc Estimated GFR Random Glucose Calcium Magnesium Total Bilirubin Direct Bilirubin AST ALT Alkaline Phosphatase Troponin I High Sens 53.9 H Total Protein Albumin Triglycerides Cholesterol LDL Cholesterol, Calc HDL Cholesterol TSH Urine Color YELLOW Urine Appearance CLEAR Urine pH 6.5 Ur Specific [place] 1.010 Urine Protein 1+ H Urine Glucose (UA) NEG Urine Ketones NEG Urine Blood NEG Urine Nitrite NEG Ur Leukocyte Esterase NEG Urine RBC 1-4 Urine WBC 0-2 Ur Squamous Epith Cells TRACE Urine Bacteria NONE Urine Mucus TRACE COVID-19 (MILLICENT) Negative COVID-19 Clin Com See Note 05/19/20 05/19/20 05/24/20 06:02 06:02 05:26 WBC 6.7 4.7 L RBC 5.63 5.08 Hgb 16.8 15.3 Hct 49.1 44.5 MCV 87.2 87.6 MCH 29.8 30.1 MCHC 34.2 34.4 RDW 13.6 13.2 Plt Count 183 162 MPV 11.2 12.3 Immature Gran % (Auto) 0.1 0.2 Neut % (Auto) 42.0 L 26.4 L Lymph % (Auto) 43.2 H 50.4 H Meagher % (Auto) 13.4 H 18.9 H Eos % (Auto) 0.6 3.0 Baso % (Auto) 0.7 1.1 Lymph # (Auto) 2.9 2.4 Meagher # (Auto) 0.9 0.9 Eos # (Auto) 0.0 0.1 Baso # (Auto) 0.1 0.1 Abs Immat Gran (auto) 0.01 0.01 Absolute Neuts (auto) 2.8 1.3 L Absolute Nucleated RBC 0.000 0.000 Nucleated RBC % (auto) 0.0 0.0 Sodium 140 Potassium 3.4 Chloride 105 Carbon Dioxide 26 Anion Gap 12 BUN 20 H Creatinine 0.76 Estim Creat Clear Calc 91.2 Estimated GFR > 60 Random Glucose 89 Calcium 8.8 D Magnesium Total Bilirubin Direct Bilirubin AST ALT Alkaline Phosphatase Troponin I High Sens Total Protein Albumin Triglycerides 188 Cholesterol 200 LDL Cholesterol, Calc 118 HDL Cholesterol 45 TSH Urine Color Urine Appearance Urine pH Ur Specific [place] Urine Protein Urine Glucose (UA) Urine Ketones Urine Blood Urine Nitrite Ur Leukocyte Esterase Urine RBC Urine WBC Ur Squamous Epith Cells Urine Bacteria Urine Mucus COVID-19 (MILLICENT) COVID-19 [facility] Com 05/24/20 05:26 WBC RBC Hgb Hct MCV MCH MCHC RDW Plt Count MPV Immature Gran % (Auto) Neut % (Auto) Lymph % (Auto) Meagher % (Auto) Eos % (Auto) Baso % (Auto) Lymph # (Auto) Meagher # (Auto) Eos # (Auto) Baso # (Auto) Abs Immat Gran (auto) Absolute Neuts (auto) Absolute Nucleated RBC Nucleated RBC % (auto) Sodium 139 Potassium 3.7 Chloride 107 Carbon Dioxide 21 L Anion Gap 15 BUN 14 Creatinine 0.71 Estim Creat Clear Calc 97.6 Estimated GFR > 60 Random Glucose 87 Calcium 8.6 Magnesium Total Bilirubin Direct Bilirubin AST ALT Alkaline Phosphatase Troponin I High Sens Total Protein Albumin Triglycerides Cholesterol LDL Cholesterol, Calc HDL Cholesterol TSH Urine Color Urine Appearance Urine pH Ur Specific [place] Urine Protein Urine Glucose (UA) Urine Ketones Urine Blood Urine Nitrite Ur Leukocyte Esterase Urine RBC Urine WBC Ur Squamous Epith Cells Urine Bacteria Urine Mucus COVID-19 (MILLICENT) COVID-19 Clin Com Discharge Plan Discharge Patient Disposition: Home Health Service Referrals: [facility] [Outside] Aldo Browning MD [Primary Care Provider] - Discharge Medications: New atorvastatin 80 mg Tablet 80 mg PO DAILY Qty: 3 RF: 0 carvedilol 12.5 mg Tablet 12.5 mg PO BID Qty: 60 RF: 0 lisinopril 20 mg Tablet 20 mg PO BID Qty: 60 RF: 0 hydralazine 25 mg Tablet 100 mg PO Q8H Qty: 90 RF: 0 amlodipine 5 mg Tablet 5 mg PO DAILY Qty: 30 RF: 0 aspirin 81 mg Tablet,Delayed Release (Dr/Ec) 81 mg PO DAILY Qty: 30 RF: 0 spironolactone 25 mg Tablet 25 mg PO DAILY Qty: 30 RF: 0 nicotine 21 mg/24 hr Patch 24 Hour 21 mg transdermal DAILY Qty: 30 RF: 0 docusate sodium 100 mg Capsule 100 mg PO BID Qty: 60 RF: 0 hydrochlorothiazide 25 mg Tablet 25 mg PO DAILY Qty: 30 RF: 0 Eliquis 5 mg tablet 5 mg PO BID Qty: 60 RF: 0 Continued allopurinol 300 mg tablet 150 mg PO DAILY RF: 0 Discontinued spironolacton-hydrochlorothiaz 25-25 mg tablet 1 tab PO DAILY Qty: 90 RF: 8 Discharge Orders: Discharge Order (Routine); Ordered 05/25/20 Ordered By: Faby Rowley Diet: low fat, low cholesterol Activity on Discharge: As tolerated Stand Alone Forms: Patient Portal Discharge page Care Plan Goals: Close outpatient monitoring of blood pressure and follow-up with vascular surgery Dr. Rene in 2 weeks time, VNA and PT services. Health Concerns: Uncontrolled hypertension/ right hemianopsia Plan of Treatment: Outpatient follow-up with Cardiology, vascular surgery Dr. Rene in 2 weeks and PCP,follow up with DR Jean Baptiste in 1-2 weeks. Patient Instructions: Spironolactone (By mouth), Lisinopril (By mouth), Hydroc hlorothiazide (By mouth), Hydralazine (By mouth), Amlodipine (By mouth), Atorvastatin (By mouth), Carvedilol (By mouth), Apixaban (By mouth), A-fib (Atrial Fibrillation) (GEN), Nonruptured Abdominal Aortic Aneurysm (GEN), Ischemic Stroke (GEN) Discharge Date/Time: 05/25/20 16:00
--- NOTE | 2020-05-25 13:35 | W.MHC.F2F ---
Service Date Service Date: 05/25/20 Encounter Date of encounter: 05/25/20 Reasons for Services Reason for [facility]: medication management, teach disease management and other MD Overseeing Care: Aldo Browning Homebound: Leaving the home is medically contraindicated at this time without the asist of a device and/or another person due th the listed conditions above and below. Reason homebound: weakness related to hospital stay and other Certification: Based on the above findings, I certify that this patient is confined to the home and needs intermittent [facility] care, physical therapy and/or speech therapy, or continues to need occupational therapy. The patient is under my care, and I have initiated the establishment of the plan of care. The patient will be followed by a physician who will periodically review the plan of care.
--- NOTE | 2020-05-25 14:01 | MHC.CM.PN ---
Patient has been medically cleared for dc to home today with VNA. A referral had been made to [facility], who has been made aware of today's dc. Second IMM addressed with Patient who is aware of and in agreement with the dc plan. Original IMM has been given to Patient and a copy has been placed on the chart.
--- NOTE | 2020-05-25 14:09 | PM.PNCARD ---
Subjective Subjective Date of Service: 05/25/20 Principal diagnosis: HTN, CVA, Afib. JOE Interval history: Since is feeling better. Wants to go home. Blood pressure was elevated last night amlodipine 5 mg once a day was added. Review of Systems Review of Systems No new complaints Yes all other systems are reviewed and are negative Physical Exam Vital Signs: Last Vital Signs Temp 99.0 F 05/25/20 12:00 Pulse 68 05/25/20 12:00 Resp 16 05/25/20 12:00 BP 158/82 H 05/25/20 12:00 Pulse Ox 92 05/25/20 12:00 Body Mass Index 27.3 GENERAL APPEARANCE: in no acute distress, well developed, well nourished. HEENT: unremarkable. HEAD: normocephalic, atraumatic. NECK/THYROID: no carotid bruit, no jugular venous distention. SKIN: no suspicious lesions, warm and dry. HEART: no murmurs, regular rate and rhythm, S1, S2 normal. LUNGS: clear to auscultation bilaterally. ABDOMEN: normal, bowel sounds present, soft, nontender, nondistended. EXTREMITIES: no clubbing, cyanosis, or edema. PERIPHERAL PULSES: equal. NEUROLOGIC: Visual changes right eye. Moving all extremities. PSYCH: mood/affect full range. Results Labs and Meds Result diagrams: 05/24/20 05:26 05/24/20 05:26 Progress Note: A&P Assessment and plan (1) Left renal artery stenosis: Status: Acute (2) PAF (paroxysmal atrial fibrillation): Status: Acute (3) Uncontrolled hypertension: Status: Acute (4) Stroke: Status: Acute (5) Abdominal aortic aneurysm: Problem details: 04/[address] scan showed 4.2 cm abdominal aortic aneurysm. Status: Acute Assessment and Plan: 65-year-old gentleman is presenting with CVA. He has significantly elevated blood pressures. He also had run of atrial fibrillation in the ER. He has been sinus rhythm since then. CT scan of his abdomen has shown abdominal aortic aneurysm with thrombus as well as concern for renal artery stenosis. He is being assessed by Dr. Rene from vascular surgery. Blood pressure control is still not optimal. He had addition of spironolactone as well as amlodipine 5 mg once a day. If blood pressure is elevated to more than amlodipine should be increased to 10 mg once a day. Given concern for atrial fibrillation in the emergency department and CVA, I would favor starting him on Eliquis. We can do cardiac event monitor and assess for presence or absence of atrial fibrillation. We will follow along with you. Thank you for allowing me to participate in the care of your patient. Please feel free to contact me if you have any questions. Fall Risk Details Current Medications: Current Medications Generic Name Dose Route Start Last Admin Trade Name Freq PRN Reason Stop Dose Admin Acetaminophen 650 mg 05/18/20 19:50 05/25/20 13:08 Acetaminophen 325 Mg Tablet PO 650 mg Q6H PRN Administration Pain, Mild (Pain Scale 1-3) Acetaminophen/Butalbital/Caffeine 1 tab 05/23/20 12:07 05/24/20 03:32 Butalb/Acetamin/Caff 50/325/40 Tablet PO 1 tab Q6H PRN Administration headache Amlodipine Besylate 5 mg 05/25/20 00:55 05/25/20 08:21 Amlodipine Besylate 5 Mg Tablet PO 5 mg DAILY NURIS Administration Protocol Aspirin 81 mg 05/19/20 09:00 05/25/20 08:20 Aspirin Enteric Coated 81 Mg Tablet. PO 81 mg DAILY NURIS Administration Atorvastatin Calcium 80 mg 05/19/20 09:00 05/25/20 08:21 Atorvastatin Calcium 80 Mg Tablet PO 80 mg DAILY NURIS Administration Carvedilol 12.5 mg 05/22/20 09:00 05/25/20 08:21 Carvedilol 12.5 Mg Tablet PO 12.5 mg BID NURIS Administration Protocol Docusate Sodium 100 mg 05/20/20 21:00 05/25/20 08:20 Docusate Sodium 100 Mg Capsule PO 100 mg BID NURIS Administration Heparin Sodium (Porcine) 5,000 unit 05/18/20 20:00 05/25/20 08:21 Heparin Sodium,Porcine 5,000 Unit/Ml Vial SUBCUT 5,000 unit Q12H NURIS Administration Hydralazine HCl 100 mg 05/23/20 12:15 05/25/20 11:41 Hydralazine Hcl 25 Mg Tablet PO 100 mg Q8H NURIS Administration Protocol Hydrochlorothiazide 25 mg 05/24/20 10:45 05/25/20 08:20 Hydrochlorothiazide 25 Mg Tablet PO 25 mg DAILY NURIS Administration Protocol Lisinopril 20 mg 05/22/20 09:00 05/25/20 08:20 Lisinopril 20 Mg Tablet PO 20 mg BID NURIS Administration Protocol Lorazepam 0.5 mg 05/24/20 10:42 05/24/20 11:17 Lorazepam 0.5 Mg Tablet PO 0.5 mg Q8H PRN Administration anxiety/restlessness Nicotine 21 mg 05/19/20 09:00 05/25/20 08:21 Nicotine 21 Mg Patch.Td24 TRANSDERMA 21 mg DAILY NURIS Administration Nicotine Polacrilex 2 mg 05/18/20 19:52 05/19/20 06:35 Nicotine Polacrilex 2 Mg Gum BUCCAL 2 mg Q2H PRN Administration withdrawl Ondansetron HCl 4 mg 05/18/20 19:50 Ondansetron Hcl 4 Mg/2 Ml Vial IVPUSH Q8H PRN Nausea and Vomiting Pharmacy Consult 1 each 05/18/20 16:12 Consult Rx Perform Med Rec MISCELLANE ONCE PRN Consult order Spironolactone 25 mg 05/25/20 09:00 05/25/20 08:21 Spironolactone 25 Mg Tablet PO 25 mg DAILY NURIS Administration Protocol Time Spent With Patient Time: Total time spent is greater than 50% in coordination of care (as documented) at patient's floor/unit and/or counseling patient: Time with patient: 15 - 24 minutes
[2020-05-25] MEDS: Apixaban 5 MG TABLET PO (15:37)
[2020-05-27 23:53] LABS: Catecholamine,Calc Tot.(E+NE) 34 mcg/g cr (9-74); Creatinine, Random Urine 157 mg/dL (20-320); Dopamine, Random Urine 245 mcg/g cr (40-390); Epinephrine, Random Urine 5 mcg/g cr (2-16); Norepinephrine, Random Urine 29 mcg/g cr (7-65)
[2020-05-31 07:27] LABS: Aldosterone/Renin Ratio 1.5 Ratio (0.9-28.9); Plasma Renin Activity 0.65 ng/mL/h (0.25-5.82)
[2020-05-31 14:33] LABS: Catecholamine Frac, Total 442 pg/mL
== END 2020-05-25 16:00 | disposition home health service (06) | DRG 66 ==
LOC: HO.ED 16:10 → HO.EDOVER 20:03 → HO.IMC 23:37
PROVIDERS: Internal Medicine Nephrology; Nurse Practitioner Acute Care; Admitting Provider Hospitalist; Emergency Provider Emergency Medicine; PCP Internal Medicine; Visit Provider Hospitalist
DX: I63.532 Cerebral infarction due to unspecified occlusion or stenosis of left posterior cerebral artery (principal); K59.09 Other constipation; I48.91 Unspecified atrial fibrillation; R29.704 NIHSS score 4; H53.9 Unspecified visual disturbance; I70.1 Atherosclerosis of renal artery; I71.4 Abdominal aortic aneurysm, without rupture; M10.9 Gout, unspecified; Z20.822 Contact with and (suspected) exposure to COVID-19; F17.210 Nicotine dependence, cigarettes, uncomplicated; Z71.6 Tobacco abuse counseling; Z79.01 Long term (current) use of anticoagulants; Z79.82 Long term (current) use of aspirin; Z79.899 Other long term (current) drug therapy
CPT/HCPCS: 36415; 70450; 70496; 70498; 70551; 71045; 74174; 76775; 80048; 80061; 80076; 81001; 82088; 82384; 83735; 84443; 84484; 85025; 87040; 87635; 93005; 93306; 93975; 96361; 96365; 96366; 96375; 96376; 97162; 97165; 97530; 99285; Q9967

== ENCOUNTER → 2020-06-08 10:43 | Outpatient (BNVA) | payer MEDICARE, MEDICAID, SELFPAY | PROVIDERS: PCP Internal Medicine; Visit Provider Surgery Vascular Surgery | DX: I70.1 Atherosclerosis of renal artery (principal); I71.4 Abdominal aortic aneurysm, without rupture | CPT/HCPCS: 99212 ==

== ENCOUNTER 2020-06-16 07:13 | Day surgery (SDC) | payer MEDICARE, MEDICAID, SELFPAY ==
[2020-06-16] VITALS (8 sets, daily range): BP systolic 105–136; BP diastolic 55–70; PULSE 58–76; RESP 16–18; TEMP 36.4; O2SAT 99–100; BMI 27.3
[2020-06-16 08:08] LABS: MANUAL DIFF FLAG NO
[2020-06-16 08:10] LABS: Basophils Absolute Auto 0.1 X10*3/uL (0.0-0.2); Basophils Percent Auto 0.9 % (0-2); Eosinophils Absolute Auto 0.2 X10*3/uL (0.0-0.4); Eosinophils Percent Auto 2.7 % (0-4); Hematocrit 40.9 % (42-52); Imm Gran Abs Auto 0.02 X10*3/uL (0.00-0.03); Imm Gran Pct Auto 0.3 % (0.0-0.4); Lymphocytes Absolute Auto 2.2 X10*3/uL (1.2-4.9); Lymphocytes Percent Auto 33.8 % (20-40); Mean Corpuscular HGB Conc 34.2 g/dl (31.0-36.0); Mean Corpuscular Hemoglobin 29.9 pg (27.0-33.0); Mean Corpuscular Volume 87.2 fL (80-98); Mean Platelet Volume 10.4 fL (9.4-12.4); Monocytes Percent Auto 15.5 % (2-11); Neutrophils Percent Auto 46.8 % (45-73); Platelet Count 254 X10*3/uL (160-400); Red Blood Count 4.69 X10*6/uL (4.60-5.80); Red Cell Distribution Width 12.6 % (11.0-16.0); White Blood Count 6.4 X10*3/uL (4.8-10.8)
[2020-06-16 08:15] LABS: INTERNATIONAL NORM RATIO 1.1 (0.9-1.1); Prothrombin Time 13.6 SEC (10.8-13.0)
[2020-06-16 08:18] LABS: Partial Thromboplastin Time 34.7 SEC (24.1-38.0)
[2020-06-16 08:33] LABS: Anion Gap 14 (12-20); Blood Urea Nitrogen 53 mg/dL (9-16); Calcium 9.1 mg/dL (8.4-10.2); Carbon Dioxide 23 mmol/L (22-29); Chloride 104 mmol/L (96-108); Creatinine Clr Calc Pharmacy 44.5; Estimated Glomerular Filt Rate 43; Glucose Random 126 mg/dL (60-115); Potassium 4.6 mmol/L (3.3-5.1); Sodium 136 mmol/L (135-145)
[2020-06-16] MEDS: 0.9 % Sodium Chloride 1,000 ML 100 ML IVCONT (11:25)
--- NOTE | 2020-06-16 11:30 | W.PM.OPN ---
Operative Note Operative Note Date of Service: 06/16/20 Narrative: Angiogram report from [facility] Preoperative diagnosis: Peripheral arterial disease 2. Left renal artery stenosis Postoperative diagnosis: Same Procedure: 1. Ultrasound-guided right common femoral access 2. Aortogram with right lower extremity runoff, and selective left renal angiogram 3. Angioplasty and stent of left renal artery 4. Angioplasty of right external iliac artery Surgeon:Roddy Rene M.D. Manager Endoscopy:None Anesthesia: Local with moderate conscious sedation for a total of 110 minutes, performed by sc Specimens:none Drains:none Estimated blood loss:minimal Indications: 65-year-old gentleman with a history of peripheral vascular disease. He was noted to have uncontrolled hypertension and is on 5 antihypertensive meds. He subsequently underwent CT angiogram which demonstrated high-grade left renal artery stenosis. He now presents for endovascular intervention. Risks benefits complications were discussed in detail with the patient. Patient understood and consented. Procedure in detail: Patient was brought to the angiography suite prior to which a time-out was called for patient identification and site verification. Bilateral groins were prepped and draped in the standard surgical fashion. Under ultrasound guidance right common femoral was punctured with micro puncture needle and wire. Subsequently a precision 4 [place] sheath was then placed. [employer]son wire was advanced to the level of the aorta. 4 Northern Irish Flush catheter was brought up and parked at the level of the renal arteries. Aortogram was then undertaken. Runoff study was then undertaken. We then exchanged for a 5 Northern Irish sheath. We brought this to level of the renal arteries. At this time 3000 units of systemic heparin was administered. After 5 minutes of circulation time we tried with an angle glide catheter to cannulate the left renal artery. Were unsuccessful. We subsequently exchanged out for a C2 catheter. Once again we had significant difficulty cannulating the left renal artery. At this point we then brought in a 6 [place] Irish angle glide sheath. We then used a angled [place] cath and a and 014 wire and we were subsequently able to cannulate the left renal artery. We then plasty the origin with a 6 x 20 balloon. At this point we lost access and we had to recannulate. Once we regained access we then placed a 6 x 18 balloon expandable stent. This abutted an extended into the aorta. Once this was accomplished completion angiogram demonstrated good result. Upon evaluation the puncture site of the right common femoral there was a high-grade stenosis of the external iliac noted. A 6 x 40 drug coated balloon was brought into position in the external iliac coming into the common iliac. This was brought into position in under 3 minutes and insufflated for a total of 3 minutes in duration. Excellent result was achieved. We then placed StarClose closure device. Patient tolerated the procedure well. Returned to recovery with stable vitals. Interpretation of films: 1. Ultrasound demonstrates appropriate femoral puncture. Image of which was saved. 2. Aortogram demonstrates appropriate caliber aorta. Minimal disease. Appropriate take-off of the renals. 3. Iliac images demonstrate multiple stenosis throughout the iliac arteries. High-grade stenosis noted in the right external iliac. 4. High-grade stenosis of the left renal artery. Right renal artery did appear normal in caliber with no significant stenosis noted. 5. Completion angiogram of the renal arteries demonstrated good flow through the left renal artery with no significant stenosis. Nephrogram appeared to be within normal limits. Completion iliac angiogram demonstrated good flow through the right common iliac and external iliac. Conclusion: 1. Successful left renal artery stent placement. In addition successful plasty of right external iliac artery with a drug coated balloon. The patient is already anticoagulated on Eliquis due to his AFib. That should provide enough anticoagulation for the D CB. This note is constructed using voice recognition software. While every effort has been made to ensure accuracy, rn concurrent review errors may have been included. Thank you for allowing me to participate in the care of your patient. Yours sincerely, Roddy Rene MD, FACS, R.P.V.I.
[2020-06-16] MEDS: iohexoL 350 MG/ML 100 ML INFUS..BTL 200 ML IV (11:32)
[2020-06-16] MEDS: Lidocaine HCl 1 % MPF 5 ML VIAL 10 ML SUBCUT (11:33)
--- NOTE | 2020-06-16 11:40 | PM.EVENT ---
Event Note Date of Service: 06/16/20 Event Note: Operative note by [facility]
[2020-06-16] MEDS: Acetaminophen 325 MG TABLET 650 MG PO (11:51)
[2020-06-16] MEDS: oxyCODONE HCl Immed Release 5 MG TABLET PO (11:51)
== END 2020-06-16 15:42 | disposition home or self-care (01) ==
PROVIDERS: PCP Internal Medicine; Visit Provider Surgery Vascular Surgery
DX: I70.1 Atherosclerosis of renal artery (principal); I71.4 Abdominal aortic aneurysm, without rupture; I70.202 Unspecified atherosclerosis of native arteries of extremities, left leg; I10 Essential (primary) hypertension; I48.91 Unspecified atrial fibrillation; Z79.01 Long term (current) use of anticoagulants; Z79.899 Other long term (current) drug therapy
CPT/HCPCS: 36245; 36415; 37220; 37236; 75625; 76937; 76942; 80048; 85025; 85610; 85730; 99152; 99153; C1725; C1760; C1769; C1887; C1894; J2250; J3010; Q9967

== ENCOUNTER → 2020-06-22 12:57 | Outpatient (BNVA) | payer MEDICARE, MEDICAID, SELFPAY | PROVIDERS: PCP Internal Medicine; Visit Provider Internal Medicine | DX: Z76.89 Persons encountering health services in other specified circumstances (principal) | CPT/HCPCS: 99212 ==

== ENCOUNTER 2020-06-24 18:12 | Observation (INO) | payer MEDICARE, MEDICAID, SELFPAY ==
[2020-06-24] VITALS (11 sets, daily range): BP systolic 167–231; BP diastolic 81–112; PULSE 67–80; RESP 12–22; TEMP 36.4–37.2; O2SAT 96–99; BMI 26.6
--- NOTE | 2020-06-24 | ECG_ITS ---
Test Reason : INCREASED TROP Blood Pressure : / mmHG Vent. Rate : 072 BPM Atrial Rate : 072 BPM P-R Int : 188 ms QRS Dur : 106 ms QT Int : 406 ms P-R-T Axes : 059 015 050 degrees QTc Int : 444 ms Normal sinus rhythm Normal ECG When compared with ECG of 24-JUN-2020 18:21, No significant change was found Referred By: Trang Ely Electronically Signed By:KAYLA COLEMAN MD
--- NOTE | ~2020-06-24 | XR_ITS ---
EXAMINATION: XR CHEST CLINICAL INFORMATION: provided history: AP/co COMPARISON: 05/18/2020 TECHNIQUE: Frontal view of the chest was obtained. FINDINGS: No significant abnormality is noted involving the heart, lungs, mediastinum, bony thorax or soft tissues. There has been no interval change since the prior study. XR/XR chest 1V IMPRESSION: Unremarkable examination.
--- NOTE | ~2020-06-24 | CT_ITS ---
EXAMINATION: CTA ABDOMEN AND PELVIS WITH CONTRAST CLINICAL INFORMATION: Question of aortic dissection COMPARISON: CT angiography of the abdomen 05/23/2020 TECHNIQUE: Multidetector volumetric imaging was performed from the superior aspect of the liver through the pubic symphysis following administration of 85 mL Omnipaque 350. Sagittal and coronal reformatted images were obtained on the technologist's workstation. This CT examination was performed using dose optimization techniques as appropriate, variously including the following: *Automated exposure control *Adjustment of mA and/or kV according to patient size (this includes techniques or standardized protocols for targeted exams where dose is matched to indication/reason for exam; i.e. extremities or head) *Use of iterative reconstruction technique DLP: 425 mGy-cm FINDINGS: Vascular Again seen is aneurysmal dilatation of the distal descending thoracic aorta as well as abdominal aorta. Maximal dimension is in the infrarenal portion with transverse measurements of 4.9 x 4.8 cm. Appearances are not significantly changed when compared to the prior study. Again noted is a large amount of noncalcified plaque/thrombus within the aneurysm sac. The aortic bifurcation is patent. The common iliac arteries have atherosclerotic disease but are patent. On the right, the internal iliac artery demonstrates some aneurysmal dilatation proximally but is then occluded with distal branches filling via collaterals. The external iliac artery has atherosclerotic changes but is patent. The common femoral is patent. The right profunda femoris has a tight stenosis at its origin. The visualized proximal SFA is patent. Of note, there is a small pseudoaneurysm present arising from the common femoral artery anterior to it that measures about 1.9 cm. Some thrombus is present in the pseudoaneurysm. Anterior to this is a small hematoma measuring 1.7 x 1.8 cm. On the left, atherosclerotic changes present in the common iliac artery. The iliac bifurcation is patent. The external iliac shows moderate disease. The common femoral is patent. The visualized proximal profunda femoris and superficial femoral artery is patent. . Since the prior study, the left renal artery has been stented and this stent is widely patent. A single right renal artery is present that is patent. The celiac continues to demonstrate a stenosis. The SMA is patent. The BRADEN is not patent. FINDINGS: LUNG BASES: Posterior right paracardiac lymph nodes measuring about a centimeter in size are unchanged. An additional posterior paracardiac node is noted just next to the GE junction measuring 1 cm as well and is unchanged. An anterior preparacardiac lymph node measures 0.6 cm and is unchanged. LIVER, GALLBLADDER, AND BILIARY TREE: The liver is normal in size and shape. There is marked heterogenity of enhancement with large geographic areas which show decreased attenuation, some of this could possibly be due to the arterial phase of imaging. I would suspect that if the patient's LFTs are normal, this is of no consequence. Please correlate. The gallbladder is unremarkable with no evidence of radiopaque gallstones, gallbladder wall thickening, or obvious pericholecystic inflammatory changes. PANCREAS: Unremarkable. SPLEEN: Unremarkable. ADRENAL GLANDS: Unremarkable. KIDNEYS AND URETERS: The kidneys are normal in size, shape, and attenuation. No hydronephrosis, hydroureter, or calculi seen. No perinephric stranding. BLADDER: Unremarkable. GASTROINTESTINAL TRACT: Extensive diverticular changes are present without diverticulitis The small and large bowel are unremarkable. The appendix is unremarkable. ABDOMINAL WALL: No significant hernia is appreciated. LYMPH NODES: Normal. PELVIC VISCERA: Unremarkable. OSSEOUS STRUCTURES: Degenerative changes present most marked at L3-L4 and L4-L5. CT/CT angio abdomen pelvis IMPRESSION: 1. No change in the aortic aneurysm with moderate noncalcified plaque within it. 2. New pseudoaneurysm and right groin hematoma. I would suspect that this patient underwent recent arterial access in the right groin. This could be amenable to ultrasound-guided thrombin treatment. 3. Newly stented left renal artery widely patent. 4.Continued presence of celiac stenosis. 5.Other atherosclerotic changes as described above. 6.Incidental note made of colonic diverticulosis, degenerative changes in the spine. 7.Large geographic areas of differences in attenuation in the enhancement of the liver as described above. Please correlate with liver function tests. This critical result was discussed with Dr. Trang Ely at 8:00 PM on the day the exam and it was ascertained that the content and urgency of the report was understood at the time of direct communication.
--- NOTE | 2020-06-24 18:31 | ECG_ITS ---
Test Reason : CHEST PAIN Blood Pressure : / mmHG Vent. Rate : 070 BPM Atrial Rate : 070 BPM P-R Int : 170 ms QRS Dur : 104 ms QT Int : 386 ms P-R-T Axes : 071 032 069 degrees QTc Int : 416 ms Normal sinus rhythm Voltage criteria for left ventricular hypertrophy Abnormal ECG When compared with ECG of 18-MAY-2020 14:45, Premature ventricular complexes are no longer Present ST no longer depressed in Inferior leads ST no longer depressed in Lateral leads T wave inversion no longer evident in Inferior leads T wave inversion no longer evident in Lateral leads QT has shortened Referred By: Trang Ely Electronically Signed By:KAYLA COLEMAN MD
--- NOTE | 2020-06-24 18:34 | ED.CHESTPAIN ---
HPI - Chest Pain General Chief Complaint: Chest Pain Stated Complaint: high bp Time Seen by Provider: 06/24/20 18:24 Source: patient Mode of arrival: ambulatory Limitations: no limitations History of Present Illness HPI narrative: 65 yo male with past medical history of afib on eliquis, gout, chronic constipation, known AAA with peripheral eccentric thrombus additionally with left renal artery stenosis s/p stenting, HTN with recent admit 05/18-05/25 for acute CVA, afib with rvr, hypertensive crisis and enlarged abd aorta with thrombus and JOE. Pt tells me approximately 1 hr [employer] he developed severe upper abdominal pain with radiation to the left side of the chest. No associated diaphoresis, SOB, dizziness. One episode of nausea with dry heaves. No JACOME or vision changes. Took blood pressure at home and noted to be >200 sytolic and began concerned. Related Data Previous Rx's Medication Instructions Recorded aspirin 81 mg PO DAILY #30 tab 05/25/20 docusate sodium 100 mg PO BID #60 cap 05/25/20 apixaban 5 mg tablet 5 mg PO BID #180 tab 06/22/20 carvedilol 6.25 mg tablet 6.25 mg PO BID 90 Days #180 tab 06/22/20 lisinopril 10 mg tablet 10 mg PO DAILY #90 tab 06/22/20 allopurinol 300 mg tablet 150 mg PO DAILY #90 tab 06/23/20 Allergies Allergy/AdvReac Type Severity Reaction Status Date / Time No Known Allergies Allergy Verified 06/22/20 13:36 [No Known Allergies*] Review of Systems Review of Systems: Yes all other systems are reviewed and are negative Constitutional: Constitutional: Reports no additional constitutional complaints, Denies body ache(s), Denies chills, Denies fever(s), Denies headache(s) and Denies weakness Eyes: Eyes: Reports no additional eye complaints and Denies change in vision ENT: Reports system reviewed and no additional complaints, except as documented, Denies dizziness, Denies headache(s), Denies nasal congestion, Denies nasal discharge and Denies neck pain Cardiovascular: Cardiovascular: Reports no additional cardiovascular complaints, Denies chest pain, Denies leg edema and Denies dyspnea Respiratory: Respiratory: Reports no additional respiratory complaints, Denies cough and Denies dyspnea Gastrointestinal: Gastrointestinal: Reports no additional gastrointestinal complaints, Reports abdominal pain, Denies diarrhea, Reports nausea and Denies vomiting Genitourinary: Genitourinary: Denies urinary incontinence Musculoskeletal: Musculoskeletal: Reports no additional musculoskeletal complaints, Denies back pain, Denies arthralgias, Denies joint swelling, Denies neck pain, Denies numbness and Denies tingling Integumentary/Breasts: Skin/Breast: Reports system reviewed and no additional complaints, except as docu and Denies rash Neurologic: Reports system reviewed and no additional complaints, except as documented, Denies Abnormal speech present, Denies dizziness, Denies headache(s), Denies numbness, Denies tingling and Denies weakness PMFSH Past Medical History Attestation statement: The following information was validated with the patient. Source: old records reviewed and nursing notes reviewed Medical History Abdominal aortic aneurysm Cardiomyopathy Chronic constipation CVA (cerebral vascular accident) CVA (cerebral vascular accident) Gout Surgical History History of appendectomy Family History Family History Father Colon cancer Social History Social History Household Members: Spouse Housing: House Alcohol intake: never Smoking Status: Never smoker Tobacco Type: Cigar Packs Per Day: 1 Cigarettes Per Day: 20 Second Hand Smoke Exposure: No Use of substances other than those prescribed or required for medical reasons: No Substance Use Type: Marijuana Advance Directives: No Advance Directives Information Provided: Yes service: No Current occupational status: retired Physical Exam Vital Signs: Vital Signs: Last Vital Signs Temp 98.2 F 06/24/20 22:10 Pulse 72 06/24/20 23:11 Resp 19 06/24/20 22:10 BP 186/82 H 06/24/20 23:11 Pulse Ox 97 06/24/20 22:10 Body Mass Index 26.6 Const: Other: in pain, holding abdomen, grimacing General: cooperative Orientation/consciousness: patient oriented x3 Limitations: no limitations HENMT: Head: Yes normal to inspection Ears: hearing grossly normal bilaterally General nose exam: Normal external nose present Face and sinus: Yes normal facial exam Mouth: Normal oral and palatal mucosa present Throat: Yes posterior oropharynx normal Eyes: General: appearance normal, both eyes and all related structures Pupils: Equal, round and reactive pupils present Neck: Neck: Yes normal visual inspection Chest: Chest palpation & inspection: normal inspection of the chest Resp: Effort & Inspection: normal respiratory effort Auscultation: clear to auscultation bilaterally Cardio: Rate: regular rate Rhythm: regular rhythm Peripheral pulses: Peripheral pulses 2+ throughout GI: Inspection: Yes normal to inspection Palpation (GI): Firmness to palpation present (GI), Tenderness to palpation present (GI) (tender in upper abdomen and epigastric ) and Guarding due to palpation present (GI) Back/Spine/Pelvis: Thoracic/Lumbar Spine: thoracic and lumbar spine normal to inspection Skin: General skin exam: no rashes or lesions noted Neuro: General: patient oriented x3, no focal motor deficits and normal sensation to monofilament Cranial nerves: Yes Equal, round and reactive pupils present Cognition (Neuro): normal cognition Speech: No Abnormal speech present Gait exam (Neuro): Normal gait present Motor exam (neuro): 5/5 motor strength present throughout Extrem: General: Yes normal to inspection Course Course Course Narrative: 65 yo male here with sudden onset epigastric pain with radiation to the chest with one episode of nausea with dry heaves and hypertension at home. On arrival patient was noted to be severely hypertensive with blood pressure 246/135 with a very tender abdomen. Discussion with Dr Rice. With patient's history of known AAA, currently being on eliquis with severe hypertension decision was made for patient to go direct to CT to r/o aortic dissection. 1829-CT notified to go direct to CT and PIV placement. 1844-Brought to CT and reviewed with Dr Rice. No dissection. Brought back to room, labetalol 20mg IV ordered for blood pressure control. Labs ordered. 2299-CT shows 1. No change in the aortic aneurysm with moderate noncalcified plaque within it. 2. New pseudoaneurysm and right groin hematoma. I would suspect that this patient underwent recent arterial access in the right groin. This could be amenable to ultrasound-guided thrombin treatment. 3. Newly stented left renal artery widely patent. 4.Continued presence of celiac stenosis. 5.Other atherosclerotic changes as described above. 6.Incidental note made of colonic diverticulosis, degenerative changes in the spine. 7.Large geographic areas of differences in attenuation in the enhancement of the liver as described above. Please correlate with liver function tests. -Patient tells me he had an angioplasty 06/[address] Rene with successful left renal artery stent placement. I looked at the site. There is no obvious ecchymosis or hematoma at the groin. There is some ecchymosis at the base of the penile shaft. Distal pulses on the RLE present. Attenuation in the liver likely incidental. Liver function tests are actually improved from previous. -unfortunately the patient's repeat troponin is increased. Repeat EKG shows no new changes when compared to previous EKG from today. Blood pressure is improving. Epigastric pain is much improved but not resolved. Likely secondary to uncontrolled hypertension. Did discuss with Dr. Valle from Cardiology who recommended admission with serial troponins and blood pressure control. Discussed with Dr Mauricio who accepted admission. MDM - Chest Pain MDM Narrative Medical decision making narrative: aortic dissection, acs, hypertensive crisis, cholecystitis, pancreatitis, gastritis Medical Records Data Attestation: I reviewed the patient's medical records. Lab Data Attestation: I reviewed the patient's lab results. Result diagrams: 06/24/20 18:36 06/24/20 18:36 Labs: Lab Results 06/24/20 06/24/20 06/24/20 Range/Units 18:36 18:36 18:36 WBC 5.5 (4.8-10.8) X10*3/uL RBC 4.40 L (4.60-5.80) X10*6/uL Hgb 13.2 L (14.0-18.0) g/dl Hct 39.0 L (42-52) % MCV 88.6 (80-98) fL MCH 30.0 (27.0-33.0) pg MCHC 33.8 (31.0-36.0) g/dl RDW 12.5 (11.0-16.0) % Plt Count 280 (160-400) X10*3/uL MPV 10.1 (9.4-12.4) fL Immature Gran % (Auto) 0.2 (0.0-0.4) % Neut % (Auto) 40.0 L (45-73) % Lymph % (Auto) 35.4 (20-40) % [place] % (Auto) 14.2 H (2-11) % Eos % (Auto) 9.3 H (0-4) % Baso % (Auto) 0.9 (0-2) % Lymph # (Auto) 2.0 (1.2-4.9) X10*3/uL [place] # (Auto) 0.8 (0.1-1.2) X10*3/uL Eos # (Auto) 0.5 H (0.0-0.4) X10*3/uL Baso # (Auto) 0.1 (0.0-0.2) X10*3/uL Abs Immat Gran (auto) 0.01 (0.00-0.03) X10*3/uL Absolute Neuts (auto) 2.2 (2.0-8.3) X10*3/uL Absolute Nucleated RBC 0.000 (0.0-0.012) X10*3/uL Nucleated RBC % (auto) 0.0 (0.0-0.2) /100WBC PT 15.8 H (10.8-13.0) SEC INR 1.3 H (0.9-1.1) Sodium 145 (135-145) mmol/L Potassium 4.6 (3.3-5.1) mmol/L Chloride 109 H (96-108) mmol/L Carbon Dioxide 26 (22-29) mmol/L Anion Gap 15 (12-20) BUN 36 H (9-16) mg/dL Creatinine 0.89 (0.5-1.4) mg/dL Estim Creat Clear Calc 80.5 Estimated GFR > 60 Random Glucose 113 (60-115) mg/dL Lactic Acid (0.5-2.0) mmol/L Calcium 9.2 (8.4-10.2) mg/dL Magnesium 1.9 (1.6-2.6) mg/dL Total Bilirubin 0.5 (0.0-1.0) mg/dL Direct Bilirubin 0.2 (0.0-0.5) mg/dL AST 38 H (5-37) U/L ALT 68 H (0-40) U/L Alkaline Phosphatase 83 (39-117) U/L Lactate Dehydrogenase 149 (118-273) U/L Troponin I High Sens (<3.5-35.0) ng/L Total Protein 7.5 (6.5-8.0) g/dL Albumin 4.0 (3.5-5.0) g/dL Triglycerides 89 mg/dL Lipase 40 (8-78) U/L Stool Occult Blood (NEG) COVID-19 (MILLICENT) (Negative) COVID-19 Clin Com 06/24/20 06/24/20 06/24/20 Range/Units 18:36 21:51 21:52 WBC (4.8-10.8) X10*3/uL RBC (4.60-5.80) X10*6/uL Hgb (14.0-18.0) g/dl Hct (42-52) % MCV (80-98) fL MCH (27.0-33.0) pg MCHC (31.0-36.0) g/dl RDW (11.0-16.0) % Plt Count (160-400) X10*3/uL MPV (9.4-12.4) fL Immature Gran % (Auto) (0.0-0.4) % Neut % (Auto) (45-73) % Lymph % (Auto) (20-40) % [place] % (Auto) (2-11) % Eos % (Auto) (0-4) % Baso % (Auto) (0-2) % Lymph # (Auto) (1.2-4.9) X10*3/uL [place] # (Auto) (0.1-1.2) X10*3/uL Eos # (Auto) (0.0-0.4) X10*3/uL Baso # (Auto) (0.0-0.2) X10*3/uL Abs Immat Gran (auto) (0.00-0.03) X10*3/uL Absolute Neuts (auto) (2.0-8.3) X10*3/uL Absolute Nucleated RBC (0.0-0.012) X10*3/uL Nucleated RBC % (auto) (0.0-0.2) /100WBC PT (10.8-13.0) SEC INR (0.9-1.1) Sodium (135-145) mmol/L Potassium (3.3-5.1) mmol/L Chloride (96-108) mmol/L Carbon Dioxide (22-29) mmol/L Anion Gap (12-20) BUN (9-16) mg/dL Creatinine (0.5-1.4) mg/dL Estim Creat Clear Calc Estimated GFR Random Glucose (60-115) mg/dL Lactic Acid (0.5-2.0) mmol/L Calcium (8.4-10.2) mg/dL Magnesium (1.6-2.6) mg/dL Total Bilirubin (0.0-1.0) mg/dL Direct Bilirubin (0.0-0.5) mg/dL AST (5-37) U/L ALT (0-40) U/L Alkaline Phosphatase (39-117) U/L Lactate Dehydrogenase (118-273) U/L Troponin I High Sens 23.6 D 49.1 H D (<3.5-35.0) ng/L Total Protein (6.5-8.0) g/dL Albumin (3.5-5.0) g/dL Triglycerides mg/dL Lipase (8-78) U/L Stool Occult Blood NEG (NEG) COVID-19 (MILLICENT) (Negative) COVID-19 Clin Com 06/24/20 06/24/20 Range/Units 21:52 23:12 WBC (4.8-10.8) X10*3/uL RBC (4.60-5.80) X10*6/uL Hgb (14.0-18.0) g/dl Hct (42-52) % MCV (80-98) fL MCH (27.0-33.0) pg MCHC (31.0-36.0) g/dl RDW (11.0-16.0) % Plt Count (160-400) X10*3/uL MPV (9.4-12.4) fL Immature Gran % (Auto) (0.0-0.4) % Neut % (Auto) (45-73) % Lymph % (Auto) (20-40) % [place] % (Auto) (2-11) % Eos % (Auto) (0-4) % Baso % (Auto) (0-2) % Lymph # (Auto) (1.2-4.9) X10*3/uL [place] # (Auto) (0.1-1.2) X10*3/uL Eos # (Auto) (0.0-0.4) X10*3/uL Baso # (Auto) (0.0-0.2) X10*3/uL Abs Immat Gran (auto) (0.00-0.03) X10*3/uL Absolute Neuts (auto) (2.0-8.3) X10*3/uL Absolute Nucleated RBC (0.0-0.012) X10*3/uL Nucleated RBC % (auto) (0.0-0.2) /100WBC PT (10.8-13.0) SEC INR (0.9-1.1) Sodium (135-145) mmol/L Potassium (3.3-5.1) mmol/L Chloride (96-108) mmol/L Carbon Dioxide (22-29) mmol/L Anion Gap (12-20) BUN (9-16) mg/dL Creatinine (0.5-1.4) mg/dL Estim Creat Clear Calc Estimated GFR Random Glucose (60-115) mg/dL Lactic Acid 1.1 (0.5-2.0) mmol/L Calcium (8.4-10.2) mg/dL Magnesium (1.6-2.6) mg/dL Total Bilirubin (0.0-1.0) mg/dL Direct Bilirubin (0.0-0.5) mg/dL AST (5-37) U/L ALT (0-40) U/L Alkaline Phosphatase (39-117) U/L Lactate Dehydrogenase (118-273) U/L Troponin I High Sens (<3.5-35.0) ng/L Total Protein (6.5-8.0) g/dL Albumin (3.5-5.0) g/dL Triglycerides mg/dL Lipase (8-78) U/L Stool Occult Blood (NEG) COVID-19 (MILLICENT) Negative (Negative) COVID-19 Clin Com See Note Imaging Data Chest x-ray: Attestation: I personally reviewed and interpreted this imaging study as follows: Radiologist's impression: EXAMINATION: XR CHEST CLINICAL INFORMATION: provided history: AP/co COMPARISON: 05/18/2020 TECHNIQUE: Frontal view of the chest was obtained. FINDINGS: No significant abnormality is noted involving the heart, lungs, mediastinum, bony thorax or soft tissues. There has been no interval change since the prior study. XR/XR chest 1V IMPRESSION: Unremarkable examination. CTA A/P: Attestation: I personally reviewed and interpreted this imaging study as follows: Radiologist's impression: 1. No change in the aortic aneurysm with moderate noncalcified plaque within it. 2. New pseudoaneurysm and right groin hematoma. I would suspect that this patient underwent recent arterial access in the right groin. This could be amenable to ultrasound-guided thrombin treatment. 3. Newly stented left renal artery widely patent. 4.Continued presence of celiac stenosis. 5.Other atherosclerotic changes as described above. 6.Incidental note made of colonic diverticulosis, degenerative changes in the spine. 7.Large geographic areas of differences in attenuation in the enhancement of the liver as described above. Please correlate with liver function tests. ECG Data ECG #1: Attestation: I personally reviewed and interpreted this ECG as follows: ECG interpretation date: 06/24/20 ECG interpretation time: 18:21 Interpretation: NSR, normal pr, normal qrs, normal qt Critical Care Time Critical Care Time Critical Care Time: Yes Total Critical Care Time: 60 Attestation: Abdominal reassessments, re-evaluations for blood pressure control, discussion with Cardiology, discussion with hospitalist for admission Discharge Plan Discharge Clinical Impression: Acute epigastric pain, Hypertensive crisis, Elevated troponin Patient Disposition: Admitted As Inpatient
[2020-06-24 18:42] LABS: MANUAL DIFF FLAG NO
[2020-06-24 18:44] LABS: Basophils Absolute Auto 0.1 X10*3/uL (0.0-0.2); Basophils Percent Auto 0.9 % (0-2); Eosinophils Absolute Auto 0.5 X10*3/uL (0.0-0.4); Eosinophils Percent Auto 9.3 % (0-4); Hemoglobin 13.2 g/dl (14.0-18.0); Imm Gran Abs Auto 0.01 X10*3/uL (0.00-0.03); Imm Gran Pct Auto 0.2 % (0.0-0.4); Lymphocytes Percent Auto 35.4 % (20-40); Mean Corpuscular HGB Conc 33.8 g/dl (31.0-36.0); Mean Corpuscular Volume 88.6 fL (80-98); Mean Platelet Volume 10.1 fL (9.4-12.4); Monocytes Absolute Auto 0.8 X10*3/uL (0.1-1.2); Monocytes Percent Auto 14.2 % (2-11); Neutrophils Absolute Auto 2.2 X10*3/uL (2.0-8.3); Platelet Count 280 X10*3/uL (160-400); Red Cell Distribution Width 12.5 % (11.0-16.0); White Blood Count 5.5 X10*3/uL (4.8-10.8)
[2020-06-24] MEDS: iohexoL 350 MG/ML 100 ML INFUS..BTL IV (18:45)
[2020-06-24 18:48] LABS: INTERNATIONAL NORM RATIO 1.3 (0.9-1.1); Prothrombin Time 15.8 SEC (10.8-13.0)
[2020-06-24] MEDS: Labetalol HCL 100 MG/20 ML VIAL 20 MG IVPUSH ×2 (18:50→21:31)
[2020-06-24 19:10] LABS: Troponin-I High Sensitivity 23.6 ng/L (<3.5-35.0)
[2020-06-24 19:15] LABS: Alanine Aminotransferase 68 U/L (0-40); Alkaline Phosphatase 83 U/L (39-117); Anion Gap 15 (12-20); Aspartate Amino Transferase 38 U/L (5-37); Bilirubin Direct 0.2 mg/dL (0.0-0.5); Bilirubin Total 0.5 mg/dL (0.0-1.0); Blood Urea Nitrogen 36 mg/dL (9-16); Calcium 9.2 mg/dL (8.4-10.2); Carbon Dioxide 26 mmol/L (22-29); Chloride 109 mmol/L (96-108); Creatinine Clr Calc Pharmacy 80.5; Estimated Glomerular Filt Rate > 60; Glucose Random 113 mg/dL (60-115); Magnesium 1.9 mg/dL (1.6-2.6); Potassium 4.6 mmol/L (3.3-5.1); Sodium 145 mmol/L (135-145); Total Protein 7.5 g/dL (6.5-8.0)
[2020-06-24] MEDS: Morphine Sulfate 4 MG/ML CARTRIDGE IVPUSH (19:24)
--- NOTE | 2020-06-24 19:26 | PC.NURSE ---
MEDICATED CHARTED FOR 10 ABD PAIN. REPORTS FEELS LIKE INDIGESTION . SINUS RHYTHM ON FINGERNAIL SCULPTOR. VOIDED IN URINAL PRIOR TO THIS NURSE ENTERING ROOM.
[2020-06-24] MEDS: Lidocaine HCl Viscous 2 % 15 ML SOLUTION MUCOUS MEM (20:14)
[2020-06-24] MEDS: Magnesium Hydrox/Alum Hydrox 30 ML ORAL.SUSP PO (20:14)
[2020-06-24] MEDS: Famotidine/PF 20 MG/2 ML VIAL IVPUSH (20:15)
[2020-06-24] MEDS: ondansetron HCL 4 MG/2 ML VIAL IVPUSH (20:15)
[2020-06-24] MEDS: HYDROmorphone HCl 0.5 MG/0.5 ML SYRINGE IVPUSH (21:33)
--- NOTE | 2020-06-24 21:34 | PC.NURSE ---
MEDICATED CHARTED FOR PAIN AND HTN. DR WELCH TO BEDSIDE FOR RECTAL EXAM. BEDSIDE GUIAC NEGATIVE. SINUS RHYTHM ON PROCESS ARCHITECT.
[2020-06-24 22:16] LABS: Lactic Acid 1.1 mmol/L (0.5-2.0)
[2020-06-24 22:29] LABS: Troponin-I High Sensitivity 49.1 ng/L (<3.5-35.0)
[2020-06-24] MEDS: carvediloL 6.25 MG TABLET PO (23:11)
[2020-06-24 23:13] LABS: Lactate Dehydrogenase 149 U/L (118-273); Lipase 40 U/L (8-78)
[2020-06-24 23:29] LABS: OBS Int Ctl Valid YES; OBS1 NEG (NEG)
[2020-06-24 23:30] LABS: Triglycerides 89 mg/dL
[2020-06-24 23:39] LABS: COVID-19 Test Negative (Negative); IDNOW Serial# 9DD0AD1C
[2020-06-25 00:12] VITALS: BP 180/87; PULSE 72; RESP 20; O2SAT 98
[2020-06-25 02:33] VITALS: BP 178/94; PULSE 69; RESP 12; TEMP 36.5; O2SAT 99
--- NOTE | 2020-06-25 06:00 | PM.IMHP ---
History of Present Illness Date of Service: 06/24/20 Chief Complaint: abdominal pain This is a 65-year-old male with past medical history of CVA, AFib, renal artery stenosis status post stenting, abdominal aortic aneurysm, cardiomyopathy, gout who presents to the hospital with complaints of epigastric abdominal pain. Patient reports that immediately after eating a pizza for dinner he started having severe epigastric pain nonradiating, 9/10, associated with nausea and some vomiting. No alleviating or exacerbating factors except eating the pizza. Patient felt that the pizza sauce did not sit with him well. He has no similar previous episode. He also took his blood pressure medication right prior to eating the pizza and he reports that this blood pressure medications new which may have led to his epigastric pain. Patient otherwise denies any headache, change in vision, no chest pain, no shortness of breath, has chronic constipation, no urinary symptoms and no lower extremity edema. No numbness or tingling or weakness. To have a blood pressure of 231/112 received 2 doses of labetalol, 1 dose of morphine, Dilaudid and Prilosec with improvement of his epigastric pain from 9 down to 4 and blood pressure improving to the 180s. Labs on arrival are significant for hemoglobin of 13.2 that dropped from sixteen back in May 19,PT of 15.8, INR of 1.3, pain of 36, creatinine of 0.89, lipase of 40, high sensitivity troponin that was initially 23.6 increased to 49.1. Cardiology was consulted and recommended admission for observation and serial troponins. Patient also has normal LDH and normal lactic acid. CT of the abdomen with contrast showed no change in the aortic aneurysm, pseudo aneurysm and right groin hematoma which is from his recent arterial access for the renal artery stent, renal artery stent widely patent. Has celiac stenosis, diverticulosis without diverticulitis, Past medical history as below on confirmed with patient Review of Systems Review of Systems: Yes all other systems are reviewed and are negative [facility] Medical History (Updated 06/25/20 @ 06:14 by Kori Mauricio MD) Abdominal aortic aneurysm Atrial fibrillation Cardiomyopathy Chronic constipation CVA (cerebral vascular accident) CVA (cerebral vascular accident) Gout Left renal artery stenosis Family History Father Colon cancer Surgical History History of appendectomy Social History Household Members: Spouse Housing: House Alcohol intake: never Smoking Status: Never smoker Tobacco Type: Cigar Packs Per Day: 1 Cigarettes Per Day: 20 Second Hand Smoke Exposure: No Use of substances other than those prescribed or required for medical reasons: No Substance Use Type: Marijuana Advance Directives: No Advance Directives Information Provided: Yes service: No Current occupational status: retired [employer] Allergies Allergy/AdvReac Type Severity Reaction Status Date / Time No Known Allergies Allergy Verified 06/22/20 13:36 [No Known Allergies*] Active Medications: Current Medications Generic Name Dose Route Start Last Admin Trade Name Freq PRN Reason Stop Dose Admin Acetaminophen 650 mg 06/25/20 00:28 Acetaminophen 325 Mg Tablet PO Q6H PRN Pain, Mild (Pain Scale 1-3) Allopurinol 150 mg 06/25/20 09:00 Allopurinol 300 Mg Tablet PO DAILY [facility] Apixaban 5 mg 06/25/20 09:00 Apixaban 5 Mg Tablet PO BID [facility] Aspirin 81 mg 06/25/20 09:00 Aspirin Enteric Coated 81 Mg Tablet.Dr PO DAILY [facility] Carvedilol 6.25 mg 06/25/20 09:00 Carvedilol 6.25 Mg Tablet PO BID [facility] Protocol Docusate Sodium 100 mg 06/25/20 09:00 Docusate Sodium 100 Mg Capsule PO BID [facility] Lisinopril 10 mg 06/25/20 09:00 Lisinopril 10 Mg Tablet PO DAILY [facility] Protocol Ondansetron HCl 4 mg 06/25/20 00:28 Ondansetron Hcl 4 Mg/2 Ml Vial IVPUSH Q8H PRN Nausea and Vomiting Sodium Chloride 3 ml 06/25/20 00:28 06/25/20 00:45 0.9 % Sodium Chloride Flush 3 Ml Syringe IVFLUSH Not Given QSHIFT [facility] Physical Exam Vital Signs and Narrative: Vital Signs: Last Vital Signs Temp 97.7 F 06/25/20 02:33 Pulse 69 06/25/20 02:33 Resp 12 06/25/20 02:33 BP 178/94 H 06/25/20 02:33 Pulse Ox 99 06/25/20 02:33 Body Mass Index 26.6 Const: General: cooperative and no acute distress Orientation/consciousness: patient oriented x3 Eyes: General: appearance normal, both eyes and all related structures Resp: Effort & Inspection: normal respiratory effort and able to speak in complete sentences Cardio: Rate: regular rate Rhythm: regular rhythm GI: Other: Tender epigastric region, no guarding, no rebound Palpation (GI): Firmness to palpation present (GI) (Slightly firm) and Tenderness to palpation present (GI) Auscultation: normal bowel sounds Skin: General skin exam: no rashes or lesions noted Neuro: General: patient oriented x3 Cognition (Neuro): normal cognition Extrem: General: Yes normal to inspection and Yes no pedal edema Results Labs CBC and Chem 7: 06/24/20 18:36 06/24/20 18:36 Labs: Laboratory Results - last 24 hr 06/24/20 06/24/20 06/24/20 18:36 18:36 18:36 MCV 88.6 MCH 30.0 MCHC 33.8 RDW 12.5 Plt Count 280 MPV 10.1 Immature Gran % (Auto) 0.2 Neut % (Auto) 40.0 L Lymph % (Auto) 35.4 [place] % (Auto) 14.2 H Eos % (Auto) 9.3 H Baso % (Auto) 0.9 Lymph # (Auto) 2.0 [place] # (Auto) 0.8 Eos # (Auto) 0.5 H Baso # (Auto) 0.1 Abs Immat Gran (auto) 0.01 Absolute Neuts (auto) 2.2 Absolute Nucleated RBC 0.000 Nucleated RBC % (auto) 0.0 PT 15.8 H INR 1.3 H Anion Gap 15 Estim Creat Clear Calc 80.5 Estimated GFR > 60 Random Glucose 113 Lactic Acid Calcium 9.2 Magnesium 1.9 Total Bilirubin 0.5 Direct Bilirubin 0.2 AST 38 H ALT 68 H Alkaline Phosphatase 83 Lactate Dehydrogenase 149 Troponin I High Sens Total Protein 7.5 Albumin 4.0 Triglycerides 89 Lipase 40 Stool Occult Blood COVID-19 (MILLICENT) COVID-19 Clin Com 06/24/20 06/24/20 06/24/20 18:36 21:51 21:52 MCV MCH MCHC RDW Plt Count MPV Immature Gran % (Auto) Neut % (Auto) Lymph % (Auto) [place] % (Auto) Eos % (Auto) Baso % (Auto) Lymph # (Auto) [place] # (Auto) Eos # (Auto) Baso # (Auto) Abs Immat Gran (auto) Absolute Neuts (auto) Absolute Nucleated RBC Nucleated RBC % (auto) PT INR Anion Gap Estim Creat Clear Calc Estimated GFR Random Glucose Lactic Acid Calcium Magnesium Total Bilirubin Direct Bilirubin AST ALT Alkaline Phosphatase Lactate Dehydrogenase Troponin I High Sens 23.6 D 49.1 H D Total Protein Albumin Triglycerides Lipase Stool Occult Blood NEG COVID-19 (MILLICENT) COVID-19 Clin Com 06/24/20 06/24/20 21:52 23:12 MCV MCH MCHC RDW Plt Count MPV Immature Gran % (Auto) Neut % (Auto) Lymph % (Auto) [place] % (Auto) Eos % (Auto) Baso % (Auto) Lymph # (Auto) [place] # (Auto) Eos # (Auto) Baso # (Auto) Abs Immat Gran (auto) Absolute Neuts (auto) Absolute Nucleated RBC Nucleated RBC % (auto) PT INR Anion Gap Estim Creat Clear Calc Estimated GFR Random Glucose Lactic Acid 1.1 Calcium Magnesium Total Bilirubin Direct Bilirubin AST ALT Alkaline Phosphatase Lactate Dehydrogenase Troponin I High Sens Total Protein Albumin Triglycerides Lipase Stool Occult Blood COVID-19 (MILLICENT) Negative COVID-19 Clin Com See Note Imaging Radiologist's Impressions: Impressions Chest X-Ray 06/24/20 18:31 IMPRESSION: Unremarkable examination. Abdomen/Pelvis CTA 06/24/20 18:35 IMPRESSION: 1. No change in the aortic aneurysm with moderate noncalcified plaque within it. 2. New pseudoaneurysm and right groin hematoma. I would suspect that this patient underwent recent arterial access in the right groin. This could be amenable to ultrasound-guided thrombin treatment. 3. Newly stented left renal artery widely patent. 4.Continued presence of celiac stenosis. 5.Other atherosclerotic changes as described above. 6.Incidental note made of colonic diverticulosis, degenerative changes in the spine. 7.Large geographic areas of differences in attenuation in the enhancement of the liver as described above. Please correlate with liver function tests. This critical result was discussed with Dr. Trang Ely at 8:00 PM on the day the exam and it was ascertained that the content and urgency of the report was understood at the time of direct communication. Assessment and Plan (1) Acute epigastric pain: Status: Acute (2) Hypertensive crisis: Status: Acute (3) Elevated troponin: Status: Acute (4) Normocytic anemia: Status: Acute This is a 65-year-old male with past medical history of stroke, AFib, renal artery stenosis status post stenting presents to the hospital with epigastric abdominal pain found to be in hypertensive crisis and elevated troponin # epigastric pain - possibly secondary to acid reflux/GERD, less likely to be secondary to pancreatitis and or ischemic bowel as he has normal lipase, LDH, lactic acid Plan: - will start him on famotidine 20 mg daily - may need GI consult for endoscopy/colonoscopy given his anemia as well # hypertensive crisis - patient presented with blood pressure in the 230s systolic coulee - no neurological deficits, but has elevated troponin - blood pressure improved after receiving labetalol as well as controlling pain - patient reports that after receiving the stent to the left renal artery his blood pressure significantly improved and his PCP did take him off 3 of his blood pressure medications - at this time will resume his carvedilol as well as lisinopril - monitor BP # elevated troponin - no chest pain, most likely secondary to the hypertensive crisis - will continue to monitor with serial trops # normocytic anemia - appears to have drop in hemoglobin from 16-13 today within the last 1 month - denies any changes to his stool - patient on anticoagulation for AFib - given his epigastric pain as well as this acute drop in hemoglobin will obtain occult stool - if positive may need evaluation by GI on outpatient basis DVT prophylaxis: Continue Eliquis for now
[2020-06-25 06:42] LABS: MANUAL DIFF FLAG NO
[2020-06-25 06:51] VITALS: BP 171/86; PULSE 72; RESP 18; O2SAT 99
[2020-06-25 06:55] LABS: Basophils Percent Auto 0.5 % (0-2); Eosinophils Absolute Auto 0.2 X10*3/uL (0.0-0.4); Eosinophils Percent Auto 3.1 % (0-4); Hematocrit 41.2 % (42-52); Imm Gran Abs Auto 0.02 X10*3/uL (0.00-0.03); Imm Gran Pct Auto 0.3 % (0.0-0.4); Lymphocytes Absolute Auto 1.4 X10*3/uL (1.2-4.9); Lymphocytes Percent Auto 18.4 % (20-40); Mean Corpuscular Hemoglobin 29.4 pg (27.0-33.0); Mean Corpuscular Volume 86.4 fL (80-98); Mean Platelet Volume 10.4 fL (9.4-12.4); Monocytes Absolute Auto 0.9 X10*3/uL (0.1-1.2); Monocytes Percent Auto 12.2 % (2-11); Neutrophils Percent Auto 65.5 % (45-73); Platelet Count 281 X10*3/uL (160-400); Red Blood Count 4.77 X10*6/uL (4.60-5.80); Red Cell Distribution Width 12.4 % (11.0-16.0); White Blood Count 7.7 X10*3/uL (4.8-10.8)
[2020-06-25 07:18] LABS: Anion Gap 15 (12-20); Blood Urea Nitrogen 27 mg/dL (9-16); Calcium 9.4 mg/dL (8.4-10.2); Carbon Dioxide 23 mmol/L (22-29); Chloride 106 mmol/L (96-108); Creatinine Clr Calc Pharmacy 91.8; Estimated Glomerular Filt Rate > 60; Glucose Random 119 mg/dL (60-115); Potassium 4.1 mmol/L (3.3-5.1); Sodium 140 mmol/L (135-145); Troponin-I High Sensitivity 36.4 ng/L (<3.5-35.0)
[2020-06-25 10:01] VITALS: BP 171/86
[2020-06-25] MEDS: Docusate Sodium 100 MG CAPSULE PO (10:01)
[2020-06-25] MEDS: Apixaban 5 MG TABLET PO (10:01)
[2020-06-25] MEDS: Aspirin Enteric Coated 81 MG TABLET.DR PO (10:01)
[2020-06-25 10:02] VITALS: BP 171/86
[2020-06-25] MEDS: carvediloL 6.25 MG TABLET PO (10:02)
[2020-06-25] MEDS: Famotidine 20 MG TABLET PO (10:02)
[2020-06-25] MEDS: allopurinoL 300 MG TABLET 150 MG PO (10:02)
--- NOTE | 2020-06-25 10:39 | PC.NURSE ---
this rn at bedside, pt expressing to hospitalist about leaving [facility], provider completing [facility]a paper work. ivs removed, pt understanding of risks of leaving against medical advice at this time.
--- NOTE | 2020-06-25 10:55 | PC.NURSE ---
pt signed ama discharge paper work, wheeled out to waiting room where is waiting to pick him up. ivs removed, pt understanding of leaving [facility]a at this time.
--- NOTE | 2020-06-25 10:59 | P.DS_ITS ---
DS: Providers Provider Date of Service: 06/25/20 Date of admission: 06/24/20 23:58 Primary care physician: Aldo Browning MD DS: Diagnosis Discharge Diagnosis (1) Acute epigastric pain: Status: Acute (2) Hypertensive crisis: Status: Acute (3) Elevated troponin: Status: Acute (4) Normocytic anemia: Status: Acute DS: Medications Discharge Medications Home Medications: Previous Rx's Medication Instructions Recorded aspirin 81 mg PO DAILY #30 tab 05/25/20 docusate sodium 100 mg PO BID #60 cap 05/25/20 apixaban 5 mg tablet 5 mg PO BID #180 tab 06/22/20 carvedilol 6.25 mg tablet 6.25 mg PO BID 90 Days #180 tab 06/22/20 lisinopril 10 mg tablet 10 mg PO DAILY #90 tab 06/22/20 allopurinol 300 mg tablet 150 mg PO DAILY #90 tab 06/23/20 DS: Summary Hospital Course Hospital Course: History of presenting illness 65-year-old male with past medical history of CVA, AFib, renal artery stenosis status post stenting, abdominal aortic aneurysm, cardiomyopathy, gout who presents to the hospital with complaints of epigastric abdominal pain. Patient reports that immediately after eating a pizza for dinner he started having severe epigastric pain nonradiating, 9/10, associated with nausea and some vomiting. No alleviating or exacerbating factors except eating the pizza. Patient felt that the pizza sauce did not sit with him well. He has no similar previous episode. He also took his blood pressure medication right prior to eating the pizza and he reports that this blood pressure medications new which may have led to his epigastric pain. Patient otherwise denies any headache, change in vision, no chest pain, no shortness of breath, has chronic constipation, no urinary symptoms and no lower extremity edema. No numbness or tingling or weakness. To have a blood pressure of 231/112 received 2 doses of labetalol, 1 dose of morphine, Dilaudid and Prilosec with improvement of his epigastric pain from 9 down to 4 and blood pressure improving to the 180s. Labs on arrival are significant for hemoglobin of 13.2 that dropped from sixteen back in May 19,PT of 15.8, INR of 1.3, pain of 36, creatinine of 0.89, lipase of 40, high sensitivity troponin that was initially 23.6 increased to 49.1. Cardiology was consulted and recommended admission for observation and serial troponins. Patient also has normal LDH and normal lactic acid. CT of the abdomen with contrast showed no change in the aortic aneurysm, pseudo aneurysm and right groin hematoma which is from his recent arterial access for the renal artery stent, renal artery stent widely patent. Has celiac stenosis, diverticulosis without diverticulitis, Hospital course 65 Year old gentleman with past medical history of stroke, AFib, renal artery stenosis status post recent stent placement and blood pressure medication adjustment presented to [facility] due to significant epigastric abdominal pain after eating a pizza for dinner the abdomen with contrast showed no acute pathology, no change in aortic aneurysm, diverticulosis without diverticulitis however patient was noted to have a blood pressure 231/112 patient receive 2 dosages of labetalol, 1 dose of morphine, Dilaudid, and Prilosec, patient's epigastric symptoms since resolved, patient blood pressure remained elevated, patient also noted to have elevated troponin initially 23.6 that increased to 49.1 therefore patient admitted to intermediate care unit EpiGastric pain resolved was likely related to pizza sauce, CT abdomen showed no acute abnormality. 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 but he is aware that he has an upcoming appointment in next 1-2 weeks therefore will increase dose of lisinopril to 20 mg daily strongly advised him to follow up with Nephrology Elevated troponin likely secondary to hypertensive urgency patient is adamant to leave the hospital and does not wish to wait for Cardiology or Nephrology consultation Abdominal aortic aneurysm inform patient that he need good blood pressure con trol for his aneurysm and need further blood pressure adjustment and close monitoring but he is adamant to leave the hospital and wishes to take the risk of aneurysm rupture/ please refer to history and physical done in last 24 hours for physical exam. Time Spent with Patient Time attestation: Total time spent providing and/or coordinating discharge services: Discharge coordination time: Greater than 30 minutes Physical Exam Vital Signs: Vital Signs: Last Vital Signs Temp 97.7 F 06/25/20 02:33 Pulse 72 06/25/20 06:51 Resp 18 06/25/20 06:51 BP 171/86 H 06/25/20 10:02 Pulse Ox 99 06/25/20 06:51 Body Mass Index 26.6 DS: Data Data Completed and Pending Labs on day of discharge: Laboratory Results - last 24 hr 06/24/20 06/24/20 06/24/20 18:36 18:36 18:36 WBC 5.5 RBC 4.40 L Hgb 13.2 L Hct 39.0 L MCV 88.6 MCH 30.0 MCHC 33.8 RDW 12.5 Plt Count 280 MPV 10.1 Immature Gran % (Auto) 0.2 Neut % (Auto) 40.0 L Lymph % (Auto) 35.4 [place] % (Auto) 14.2 H Eos % (Auto) 9.3 H Baso % (Auto) 0.9 Lymph # (Auto) 2.0 [place] # (Auto) 0.8 Eos # (Auto) 0.5 H Baso # (Auto) 0.1 Abs Immat Gran (auto) 0.01 Absolute Neuts (auto) 2.2 Absolute Nucleated RBC 0.000 Nucleated RBC % (auto) 0.0 PT 15.8 H INR 1.3 H Sodium 145 Potassium 4.6 Chloride 109 H Carbon Dioxide 26 Anion Gap 15 BUN 36 H Creatinine 0.89 Estim Creat Clear Calc 80.5 Estimated GFR > 60 Random Glucose 113 Lactic Acid Calcium 9.2 Magnesium 1.9 Total Bilirubin 0.5 Direct Bilirubin 0.2 AST 38 H ALT 68 H Alkaline Phosphatase 83 Lactate Dehydrogenase 149 Troponin I High Sens Total Protein 7.5 Albumin 4.0 Triglycerides 89 Lipase 40 Stool Occult Blood COVID-19 (MILLICENT) COVID-19 Clin Com 06/24/20 06/24/20 06/24/20 18:36 21:51 21:52 WBC RBC Hgb Hct MCV MCH MCHC RDW Plt Count MPV Immature Gran % (Auto) Neut % (Auto) Lymph % (Auto) Marathon % (Auto) Eos % (Auto) Baso % (Auto) Lymph # (Auto) [place] # (Auto) Eos # (Auto) Baso # (Auto) Abs Immat Gran (auto) Absolute Neuts (auto) Absolute Nucleated RBC Nucleated RBC % (auto) PT INR Sodium Potassium Chloride Carbon Dioxide Anion Gap BUN Creatinine Estim Creat Clear Calc Estimated GFR Random Glucose Lactic Acid Calcium Magnesium Total Bilirubin Direct Bilirubin AST ALT Alkaline Phosphatase Lactate Dehydrogenase Troponin I High Sens 23.6 D 49.1 H D Total Protein Albumin Triglycerides Lipase Stool Occult Blood NEG COVID-19 (MILLICENT) COVID-19 Clin Com 06/24/20 06/24/20 06/25/20 21:52 23:12 06:20 WBC 7.7 RBC 4.77 Hgb 14.0 Hct 41.2 L MCV 86.4 MCH 29.4 MCHC 34.0 RDW 12.4 Plt Count 281 MPV 10.4 Immature Gran % (Auto) 0.3 Neut % (Auto) 65.5 Lymph % (Auto) 18.4 L [place] % (Auto) 12.2 H Eos % (Auto) 3.1 Baso % (Auto) 0.5 Lymph # (Auto) 1.4 Marathon # (Auto) 0.9 Eos # (Auto) 0.2 Baso # (Auto) 0.0 Abs Immat Gran (auto) 0.02 Absolute Neuts (auto) 5.0 Absolute Nucleated RBC 0.000 Nucleated RBC % (auto) 0.0 PT INR Sodium Potassium Chloride Carbon Dioxide Anion Gap BUN Creatinine Estim Creat Clear Calc Estimated GFR Random Glucose Lactic Acid 1.1 Calcium Magnesium Total Bilirubin Direct Bilirubin AST ALT Alkaline Phosphatase Lactate Dehydrogenase Troponin I High Sens Total Protein Albumin Triglycerides Lipase Stool Occult Blood COVID-19 (MILLICENT) Negative COVID-19 Clin Com See Note 06/25/20 06/25/20 06:20 06:20 WBC RBC Hgb Hct MCV MCH MCHC RDW Plt Count MPV Immature Gran % (Auto) Neut % (Auto) Lymph % (Auto) Marathon % (Auto) Eos % (Auto) Baso % (Auto) Lymph # (Auto) Marathon # (Auto) Eos # (Auto) Baso # (Auto) Abs Immat Gran (auto) Absolute Neuts (auto) Absolute Nucleated RBC Nucleated RBC % (auto) PT INR Sodium 140 Potassium 4.1 Chloride 106 Carbon Dioxide 23 Anion Gap 15 BUN 27 H Creatinine 0.78 Estim Creat Clear Calc 91.8 Estimated GFR > 60 Random Glucose 119 H Lactic Acid Calcium 9.4 Magnesium Total Bilirubin Direct Bilirubin AST ALT Alkaline Phosphatase Lactate Dehydrogenase Troponin I High Sens 36.4 H Total Protein Albumin Triglycerides Lipase Stool Occult Blood COVID-19 (MILLICENT) COVID-19 Clin Com Discharge Plan Discharge Patient Disposition: Left Against Medical Advice Referrals: Aldo Browning MD [Primary Care Provider] - Discharge Medications: Continued allopurinol 300 mg tablet 150 mg PO DAILY Qty: 90 RF: 8 aspirin 81 mg Tablet,Delayed Release (Dr/Ec) 81 mg PO DAILY Qty: 30 RF: 0 docusate sodium 100 mg Capsule 100 mg PO BID Qty: 60 RF: 0 Eliquis 5 mg tablet 5 mg PO BID Qty: 180 RF: 4 carvedilol [Coreg] 6.25 mg tablet 6.25 mg PO BID 90 Days Qty: 180 RF: 4 Changed lisinopril 10 mg tablet 20 mg PO DAILY Qty: 90 RF: 4 Discharge Orders: Discharge Order (Routine); Ordered 06/25/20 Ordered By: Faby Rowley Care Plan Goals: Outpatient follow-up of blood pressure and with Nephrology for further blood pressure monitoring and adjustment of dosages Health Concerns: Hypertension uncontrolled Plan of Treatment: Follow-up with PCP and Nephrology
--- NOTE | 2020-06-26 09:03 | MHC.CM.PN ---
Pt not seen by CM due to leaving against medical advice.
== END 2020-06-26 09:19 | disposition left against medical advice (07) ==
LOC: HO.ED 23:20 → HO.EDOVER 06-25 07:20 → HO.IMC 06-25 14:52
PROVIDERS: Nurse Practitioner Family; Admitting Provider Internal Medicine; Emergency Provider Internal Medicine; PCP Internal Medicine; Visit Provider Hospitalist
DX: R10.13 Epigastric pain (principal); I16.9 Hypertensive crisis, unspecified; R77.8 Other specified abnormalities of plasma proteins; D64.9 Anemia, unspecified; I48.91 Unspecified atrial fibrillation; I42.9 Cardiomyopathy, unspecified; I71.4 Abdominal aortic aneurysm, without rupture; M10.9 Gout, unspecified; R94.31 Abnormal electrocardiogram [ECG] [EKG]; Z20.822 Contact with and (suspected) exposure to COVID-19; Z79.82 Long term (current) use of aspirin; Z79.01 Long term (current) use of anticoagulants; Z79.899 Other long term (current) drug therapy
CPT/HCPCS: 36415; 71045; 74174; 80048; 80076; 82272; 83605; 83615; 83690; 83735; 84478; 84484; 85025; 85610; 87635; 93005; 96374; 96375; 96376; 99212; 99219; 99285; 99291; J1170; J2270; J2405; Q9967

== ENCOUNTER → 2020-06-28 13:16 | Outpatient (REF) | payer MEDICARE, MEDICAID, SELFPAY ==
--- NOTE | 2020-06-28 13:21 | HM_ITS ---
TEST PERFORMED: Cardiac event monitoring. REQUESTING PHYSICIAN: Dr. Sutton. INDICATION: Paroxysmal atrial fibrillation. ENROLLMENT PERIOD: 06/28/2020 to 07/28/2020 - 30 days. FINDINGS: In the above monitoring period, the underlying rhythm was sinus. The ventricular rates average 73 beats per minute. There was 1 isolated PVC noted during this time, but otherwise, no atrial fibrillation or other arrhythmias of significance. CONCLUSION: Study shows no evidence of any atrial fibrillation. Farhan Paulino MD HS/MODL / [id number]
== END ==
LOC: HO.CARD 13:16
PROVIDERS: Visit Provider Internal Medicine Cardiovascular Disease
DX: I48.0 Paroxysmal atrial fibrillation (principal)
CPT/HCPCS: 93270; 93272

== ENCOUNTER → 2020-06-29 10:27 | Outpatient (BNVA) | payer MEDICARE, MEDICAID, SELFPAY | PROVIDERS: PCP Internal Medicine; Visit Provider Surgery Vascular Surgery | DX: I71.4 Abdominal aortic aneurysm, without rupture (principal); I73.9 Peripheral vascular disease, unspecified; I70.1 Atherosclerosis of renal artery | CPT/HCPCS: 99212 ==

== ENCOUNTER → 2020-07-06 11:15 | Outpatient (BNVA) | payer MEDICARE, MEDICAID, SELFPAY | PROVIDERS: PCP Internal Medicine; Visit Provider Internal Medicine | DX: I63.9 Cerebral infarction, unspecified (principal); I48.0 Paroxysmal atrial fibrillation; I10 Essential (primary) hypertension; I42.8 Other cardiomyopathies | CPT/HCPCS: 99212 ==

== ENCOUNTER → 2020-08-18 10:44 | Outpatient (BNVA) | payer MEDICARE, MEDICAID, SELFPAY | PROVIDERS: PCP Internal Medicine; Visit Provider Internal Medicine | DX: I63.9 Cerebral infarction, unspecified (principal); I48.0 Paroxysmal atrial fibrillation; I10 Essential (primary) hypertension; I42.8 Other cardiomyopathies | CPT/HCPCS: 99212 ==

== ENCOUNTER 2020-09-28 08:58 | Outpatient (REF) | payer MEDICARE, MEDICAID, SELFPAY ==
--- NOTE | ~2020-09-28 | US_ITS ---
EXAMINATION: US RETROPERITONEAL LIMITED (RENAL ONLY) CLINICAL INFORMATION: Evaluate left renal artery stent. COMPARISON: Previous CTA of the abdomen and pelvis May 2020 TECHNIQUE: Doppler color and grayscale evaluation of the kidneys, bilateral renal arteries and vein and abdominal aorta. FINDINGS: RIGHT KIDNEY: 11.3 x 4.5 x 5 cm (SAG x AP x TRV). The kidney is normal in size, contour, and echogenicity. Renal cortical thickness is normal. No calculi or focal parenchymal lesions. No hydronephrosis. LEFT KIDNEY: 10.8 x 4.9 x 5.4 cm (SAG x AP x TRV). The kidney is normal in size, contour, and echogenicity. Renal cortical thickness is normal. No calculi or focal parenchymal lesions. No hydronephrosis. There is an abdominal aortic aneurysm and measures 5.1 x 6 cm in AP and transverse dimension. Aortic peak velocity measures 34 which is too low to make renal artery to aorta ratio accurate. Right renal artery is patent. Right renal artery peak systolic velocities measure 252 cm/s proximally, 129 cm/s in the midportion and 129 cm/s distally. Resistive indices of the segmental renal arteries in the right kidney are normal measuring 0.6-0.7. The right renal vein is patent. The left renal artery is patent. Left renal artery peak systolic velocities measure 251 cm per second proximally, 250 cm/s the midportion and 253 cm/s distally. There is turbulent flow seen in the left renal artery. Resistive indices of the segmental renal arteries in the left kidney are normal measuring 0.6-0.7. The left renal vein is patent. US/US renal doppler IMPRESSION: Normal-appearing kidneys. Increased peak systolic velocities in the bilateral renal arteries suggestive of renal artery stenosis, left greater than right. Abdominal aortic aneurysm measuring 5.1 x 6 cm in AP and transverse dimension. Findings were communicated to Taylor in the vascular office by the fibre technologist at the completion of the exam.
--- NOTE | ~2020-09-28 | US_ITS ---
EXAMINATION: US RETROPERITONEAL LIMITED (RENAL ONLY) CLINICAL INFORMATION: Evaluate left renal artery stent. COMPARISON: Previous CTA of the abdomen and pelvis May 2020 TECHNIQUE: Doppler color and grayscale evaluation of the kidneys, bilateral renal arteries and vein and abdominal aorta. FINDINGS: RIGHT KIDNEY: 11.3 x 4.5 x 5 cm (SAG x AP x TRV). The kidney is normal in size, contour, and echogenicity. Renal cortical thickness is normal. No calculi or focal parenchymal lesions. No hydronephrosis. LEFT KIDNEY: 10.8 x 4.9 x 5.4 cm (SAG x AP x TRV). The kidney is normal in size, contour, and echogenicity. Renal cortical thickness is normal. No calculi or focal parenchymal lesions. No hydronephrosis. There is an abdominal aortic aneurysm and measures 5.1 x 6 cm in AP and transverse dimension. Aortic peak velocity measures 34 which is too low to make renal artery to aorta ratio accurate. Right renal artery is patent. Right renal artery peak systolic velocities measure 252 cm/s proximally, 129 cm/s in the midportion and 129 cm/s distally. Resistive indices of the segmental renal arteries in the right kidney are normal measuring 0.6-0.7. The right renal vein is patent. The left renal artery is patent. Left renal artery peak systolic velocities measure 251 cm per second proximally, 250 cm/s the midportion and 253 cm/s distally. There is turbulent flow seen in the left renal artery. Resistive indices of the segmental renal arteries in the left kidney are normal measuring 0.6-0.7. The left renal vein is patent. US/US renal BI IMPRESSION: Normal-appearing kidneys. Increased peak systolic velocities in the bilateral renal arteries suggestive of renal artery stenosis, left greater than right. Abdominal aortic aneurysm measuring 5.1 x 6 cm in AP and transverse dimension. Findings were communicated to Taylor in the vascular office by the generation technologist at the completion of the exam.
== END 2020-09-28 08:59 | disposition home or self-care (01) ==
LOC: HO.US 08:58
PROVIDERS: Visit Provider Surgery Vascular Surgery
DX: I70.1 Atherosclerosis of renal artery (principal)
CPT/HCPCS: 76775; 93975

== ENCOUNTER → 2020-10-12 09:58 | Outpatient (BNVA) | payer MEDICARE, MEDICAID, SELFPAY | PROVIDERS: PCP Nurse Practitioner Family; Visit Provider Surgery Vascular Surgery | DX: I70.1 Atherosclerosis of renal artery (principal); I71.4 Abdominal aortic aneurysm, without rupture | CPT/HCPCS: 99212 ==

== ENCOUNTER → 2020-11-30 10:45 | Outpatient (BNVA) | payer MEDICARE, MEDICAID, SELFPAY | PROVIDERS: PCP Internal Medicine; Referring Provider Internal Medicine; Visit Provider Internal Medicine | DX: I63.9 Cerebral infarction, unspecified (principal); I48.0 Paroxysmal atrial fibrillation; I10 Essential (primary) hypertension; I42.8 Other cardiomyopathies | CPT/HCPCS: 99212 ==

== ENCOUNTER 2020-12-21 12:26 | Outpatient (REF) | payer MEDICARE, MEDICAID, SELFPAY ==
[2020-12-21 13:42] LABS: Blood Urea Nitrogen 18 mg/dL (9-16); Estimated Glomerular Filt Rate > 60
== END 2020-12-21 12:27 | disposition home or self-care (01) ==
LOC: HO.LAB 12:26
PROVIDERS: PCP Internal Medicine; Visit Provider Surgery Vascular Surgery
DX: I71.4 Abdominal aortic aneurysm, without rupture (principal)
CPT/HCPCS: 36415; 82565; 84520

== ENCOUNTER 2021-01-11 10:57 | Outpatient (REF) | payer MEDICARE, MEDICAID, SELFPAY ==
--- NOTE | ~2021-01-11 | CT_ITS ---
EXAMINATION: CT ANGIOGRAM ABDOMEN AND PELVIS CLINICAL INFORMATION: Abdominal aortic aneurysm. COMPARISON: CTA abdomen and pelvis 06/24/2020. TECHNIQUE: Multidetector volumetric imaging was performed from the superior aspect of the liver through the pubic symphysis following administration of 85 mL Omnipaque 350. Sagittal and coronal reformatted images were obtained on the technologist's workstation. This CT examination was performed using dose optimization techniques as appropriate, variously including the following: *Automated exposure control *Adjustment of mA and/or kV according to patient size (this includes techniques or standardized protocols for targeted exams where dose is matched to indication/reason for exam; i.e. extremities or head) *Use of iterative reconstruction technique DLP: 291 mGy-cm FINDINGS: VASCULAR FINDINGS: Again seen is aneurysmal dilatation of the distal descending thoracic aorta as well as abdominal aorta. Dimensions in cm are compared in the transverse plane. Numbers in parentheses are from the prior 06/24/2020 study: Diaphragmatic hiatus 3.9 (4.1) At level of renal arteries: 3.5 (3.4) Infrarenal: 4.7 (4.2) Iliac crests: 5.7 (5.1) There appears to be a larger amount of thrombus present in the infrarenal aorta where there is layering of contrast (for example see 6:27). On the right, the internal iliac artery again demonstrates some aneurysmal dilatation proximally but is then occluded with distal branches filling via collaterals. The external iliac artery has atherosclerotic changes but is patent. The common femoral is patent. Again seen is a tight stenosis at the origin of the right profunda femoris. The visualized proximal SFA is patent. Of note, the previously seen pseudoaneurysm anterior to the femoral artery has resolved as has the previously seen hematoma. On the left, atherosclerotic changes are again seen in the common iliac artery. The iliac bifurcation is patent. The external iliac shows moderate disease. The common femoral is patent. The visualized proximal profunda femoris and superficial femoral artery are patent. Previously placed left renal artery stent remains widely patent. A single right renal artery is present that is patent. The celiac continues to demonstrate a stenosis. The SMA is patent. The BRADEN is not patent. NONVASCULAR FINDINGS: LUNG BASES: Again seen are some small posterior right paracardiac lymph nodes measuring about a centimeter in size, unchanged. An additional posterior paracardiac node is noted just next to the GE junction measuring 1 cm as well and is unchanged. An anterior preparacardiac lymph node measures 0.6 cm and is unchanged. LIVER, GALLBLADDER, AND BILIARY TREE: The liver is normal in size and shape. Previously seen marked heterogeneity of enhancement in the liver no longer present. No hepatic masses or bile duct dilatation seen. The gallbladder is unremarkable with no evidence of radiopaque gallstones, gallbladder wall thickening, or obvious pericholecystic inflammatory changes. PANCREAS: Unremarkable. SPLEEN: Unremarkable. ADRENAL GLANDS: Unremarkable. KIDNEYS AND URETERS: The kidneys are normal in size, shape, and attenuation. No hydronephrosis, hydroureter, or calculi seen. No perinephric stranding. BLADDER: Unremarkable. GASTROINTESTINAL TRACT: Extensive diverticular changes are present without diverticulitis The small and large bowel are unremarkable. The appendix is unremarkable. ABDOMINAL WALL: No significant hernia is appreciated. LYMPH NODES: Normal. PELVIC VISCERA: Unremarkable with normal-appearing prostate and seminal vesicles. OSSEOUS STRUCTURES: Degenerative changes present most marked at L3-L4 and L4-L5. CT/CT angio abdomen pelvis IMPRESSION: 1. The abdominal aortic aneurysm is slightly larger in size increasing from 5.1 to 5.7 cm. Increased thrombus is present within the aneurysm. 2. Previously seen right groin pseudoaneurysm and hematoma have resolved. 3. Left renal artery stent remains widely patent. 4.Continued presence of celiac stenosis. 5.Other atherosclerotic changes as described above. 6.Incidental note made of colonic diverticulosis, degenerative changes in the spine.
[2021-01-11] MEDS: iohexoL 350 MG/ML 100 ML INFUS..BTL IV (12:17)
== END 2021-01-11 10:58 | disposition home or self-care (01) ==
LOC: HO.CT 10:57
PROVIDERS: PCP Internal Medicine; Visit Provider Surgery Vascular Surgery
DX: I71.4 Abdominal aortic aneurysm, without rupture (principal)
CPT/HCPCS: 74174; Q9967

== ENCOUNTER → 2021-01-18 10:51 | Outpatient (BNVA) | payer MEDICARE, MEDICAID, SELFPAY | PROVIDERS: PCP Internal Medicine; Referring Provider Internal Medicine; Visit Provider Surgery Vascular Surgery | DX: I71.4 Abdominal aortic aneurysm, without rupture (principal) | CPT/HCPCS: 99212 ==

== ENCOUNTER 2021-02-01 | Outpatient (REF) | payer MEDICARE, MEDICAID, SELFPAY ==
--- NOTE | 2021-02-01 | ECG_ITS ---
Test Reason : pre op Blood Pressure : / mmHG Vent. Rate : 061 BPM Atrial Rate : 061 BPM P-R Int : 180 ms QRS Dur : 104 ms QT Int : 454 ms P-R-T Axes : 043 006 -64 degrees QTc Int : 457 ms Normal sinus rhythm Left ventricular hypertrophy with repolarization abnormality ( Sokolow-Metcalf , Mor[place]is product ) Abnormal ECG When compared with ECG of 24-JUN-2020 22:40, T wave inversion now evident in Inferior leads T wave inversion now evident in Lateral leads Referred By: Aaliyah Chau Electronically Signed By:AUDIE MCNEILL
[2021-02-01 13:24] VITALS: BP 173/87; PULSE 69; RESP 20; O2SAT 98; BMI 28.8
--- NOTE | 2021-02-01 13:47 | HO.ANESPROP2 ---
HPI - Anesthesia Eval Consult details Narrative: 65yo M for Aortic Endovascular Repair +ETOH per old record, pt denies current ETOH use Eliquis for afib PMFSH Active Problems Active Problems: All Active Problems (Updated 02/01/21 @ 13:45 by Lakisha Martinez RN) Stroke (Acute) Uncontrolled hypertension (Acute) PAF (paroxysmal atrial fibrillation) (Acute) Elevated troponin (Acute) Normocytic anemia (Acute) PAD (peripheral artery disease) (Acute) Left renal artery stenosis (Acute) Cardiomyopathy (Acute) CVA (cerebral vascular accident) (Acute) Gout (Acute) Chronic constipation (Acute) Abdominal aortic aneurysm (Acute) Past Medical History Medical History (Updated 02/01/21 @ 13:53 by Aaliyah Chau NP) Abdominal aortic aneurysm Arthritis Atrial fibrillation Cardiomyopathy Chronic constipation CVA (cerebral vascular accident) Elevated cholesterol Gout History of alcohol dependence HTN (hypertension) Left renal artery stenosis Family History Family History Father Colon cancer Family history of problems with anesthesia: No Surgical History Surgical History (Updated 02/01/21 @ 13:21 by Lakisha Martinez RN) History of appendectomy History of gastric surgery Hx of angioplasty History of Problems with Anesthesia: No Social History Social History Household Members: Spouse Housing: House Are you a primary intensive care specialist to a significant other at home: No Do you presently have visiting nurse or other home services: No Unable to assess alcohol history related to: Unknown Alcohol intake: never Patient Tobacco Use Status: Current everyday Tobacco user Tobacco use type: Cigarette Cigarette Packs Per Day: 1 Cigarettes Per Day: 20 Years Smoked: 50 Smoked in Last 30 Days: Yes Patient Interested in Nicotine Replacement: No Patient Given Instructions on How to Stop Smoking: Yes Date Education Initiated: 02/01/21 Second Hand Smoke Exposure: No Use of substances other than those prescribed or required for medical reasons: Yes Substance Use Type: Marijuana Substance Use Frequency: Occasionally Have you been hit, kicked, punched, or otherwise hurt by someone within the past year? If so, by whom?: No Are you DNR?: No Advance Directives: Yes (patient states would not want to be resuscitated in extreme circumstance) Advance Directives Information Provided: Yes (does not have an official DNR order-has official HCP) Advance Directives on File: Yes Advance Directives Date on File: 09/03/17 Recently lost weight without trying: No Nutrition Risks: No Nutritional Risk Poor oral hygiene: No (adentulous) service: No Current occupational status: retired Narrative Narrative: No recent illness No CP/SOB with minimal activity Meds Allergies Allergy/AdvReac Type Severity Reaction Status Date / Time No Known Allergies Allergy Verified 01/18/21 10:53 [No Known Allergies*] Home Medications Medication Instructions Recorded Confirmed Last Taken Type atorvastatin 80 mg tablet 80 mg PO QAM 06/29/20 02/01/21 Unknown History Exam Exam Date and Time: February 01, 2021 1347 Height,Weight and Vital Signs: Height 5 ft 9 in Weight 88.451 kg Last Vital Signs Pulse 69 02/01/21 13:24 Resp 20 02/01/21 13:24 BP 173/87 H 02/01/21 13:24 Pulse Ox 98 02/01/21 13:24 Airway Mallampati Class: II TM Dist: >3cm Neck ROM: Full Denture: Upper and Lower Heart: RRR Lungs: CTAB Assessment and Plan Final Anesthetic Review Family History of Problems with Anesthesia: No History of Problems with Anesthesia: No
[2021-02-01 15:18] LABS: Hematocrit 44.5 % (42-52); Hemoglobin 15.1 g/dl (14.0-18.0); Mean Corpuscular HGB Conc 33.9 g/dl (31.0-36.0); Mean Corpuscular Hemoglobin 29.4 pg (27.0-33.0); Mean Corpuscular Volume 86.6 fL (80-98); Mean Platelet Volume 10.6 fL (9.4-12.4); Platelet Count 210 X10*3/uL (160-400); Red Blood Count 5.14 X10*6/uL (4.60-5.80); Red Cell Distribution Width 12.8 % (11.0-16.0)
[2021-02-01 15:27] LABS: INTERNATIONAL NORM RATIO 1.4 (0.9-1.1); Prothrombin Time 16.3 SEC (9.9-13.0)
[2021-02-01 15:29] LABS: Partial Thromboplastin Time 44.6 SEC (24.1-38.0)
[2021-02-01 15:45] LABS: Anion Gap 12 (12-20); Blood Urea Nitrogen 13 mg/dL (9-16); Calcium 9.3 mg/dL (8.4-10.2); Carbon Dioxide 30 mmol/L (22-29); Chloride 106 mmol/L (96-108); Creatinine Clr Calc Pharmacy 91.7; Estimated Glomerular Filt Rate > 60; Glucose Random 106 mg/dL (60-115); Potassium 4.1 mmol/L (3.3-5.1); Sodium 144 mmol/L (135-145)
== END 2021-02-01 00:01 | disposition home or self-care (01) ==
LOC: HO.LAB
PROVIDERS: Nurse Practitioner; PCP Internal Medicine; Visit Provider Surgery Vascular Surgery
DX: I71.4 Abdominal aortic aneurysm, without rupture (principal)
CPT/HCPCS: 36415; 80048; 85027; 85610; 85730; 86850; 86900; 86901; 93005

== ENCOUNTER → 2021-02-03 09:00 | Outpatient (REF) | payer MEDICARE, MEDICAID, SELFPAY | LOC: HO.CARD 09:00 | PROVIDERS: PCP Internal Medicine; Visit Provider Internal Medicine | DX: I42.8 Other cardiomyopathies (principal) | CPT/HCPCS: J0280; J2785 ==

== ENCOUNTER → 2021-02-09 12:51 | Outpatient (BNVA) | payer MEDICARE, MEDICAID, SELFPAY | PROVIDERS: PCP Internal Medicine; Referring Provider Internal Medicine; Visit Provider Nurse Practitioner Family | DX: Z01.810 Encounter for preprocedural cardiovascular examination (principal); I71.4 Abdominal aortic aneurysm, without rupture; I10 Essential (primary) hypertension; I48.0 Paroxysmal atrial fibrillation; I42.9 Cardiomyopathy, unspecified; I70.1 Atherosclerosis of renal artery; E78.00 Pure hypercholesterolemia, unspecified; F17.210 Nicotine dependence, cigarettes, uncomplicated; Z86.73 Personal history of transient ischemic attack (TIA), and cerebral infarction without residual deficits; Z79.01 Long term (current) use of anticoagulants; Z79.899 Other long term (current) drug therapy | CPT/HCPCS: 93005; 99212 ==